=== PATIENT | male | born 1975 | race Caucasian/White ===

== ENCOUNTER 2017-11-04 10:26 | Inpatient (IN) | payer OTHER ==
[2017-11-04 10:42] VITALS: BMI 24.3
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
[2017-11-04] MEDS ORDERED: MAGNESIUM CITRATE 300 ML BOTTLE PO PRN (13:07)
[2017-11-04] MEDS ORDERED: LOPERAMIDE HCL 2 MG CAPSULE PO PRN (13:07)
[2017-11-04] MEDS ORDERED: NICOTINE POLACRILEX 2 MG GUM BC PRN (13:07)
[2017-11-04] MEDS ORDERED: MAG HYDROX/AL HYDROX/SIMETH 30 ML UNIT-DOSE CUP PO PRN (13:07)
[2017-11-04] MEDS ORDERED: MAGNESIUM HYDROX 2400MG/30ML ORAL SUSPENSION 30 ML CUP PO PRN (13:07)
[2017-11-04] MEDS ORDERED: P-EPHED 60MG/TRIPROLIDI 2.5MG TABLET PO PRN (13:07)
[2017-11-04] MEDS ORDERED: ACETAMINOPHEN 325 MG TABLET (FP) PO PRN (13:07)
[2017-11-04] MEDS ORDERED: MENTHOL/PHENOL 1 EACH UD MM PRN (13:07)
[2017-11-04] MEDS ORDERED: guaiFENesin/D-METHORPHAN HB 10 ML UNIT-DOSE CUPS PO PRN (13:07)
[2017-11-04] MEDS ORDERED: ALBUTEROL SO4 8 GM HFA INHALER IH PRN (13:11)
[2017-11-04] MEDS ORDERED: ALBUTEROL SO4 2.5/IPRATROPIUM 0.5 INH SOL 3 ML VIAL.NEB. NEB PRN (13:11)
[2017-11-04] MEDS ORDERED: diazePAM 5 MG TABLET PO ONE (14:00)
[2017-11-04] MEDS ORDERED: METHADONE HCL 10 MG TABLET (FOR DETOX USE ONLY) PO ONE ×2 (14:00→23:00)
[2017-11-04] MEDS: NICOTINE 14 MG/24 HOURS TOPICAL PATCH TD SCH (14:19)
[2017-11-04] MEDS: diazePAM 5 MG TABLET PO SCH ×2 (14:21→22:30)
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
[2017-11-04] MEDS ORDERED: MELATONIN 5 MG TABLETS PO PRN (22:00)
[2017-11-04] MEDS: THIAMINE HCL 100 MG TABLET (FP) PO SCH (22:30)
[2017-11-04] MEDS: BUDESONIDE/FORMETEROL FUMARATE 160/4.5 mcg INHALER IH SCH (22:30)
[2017-11-04] MEDS: ZOLPIDEM TARTRATE 10 MG TABLET (PARK CARE ONLY) PO PRN (22:32)
[2017-11-05] MEDS: diazePAM 5 MG TABLET PO SCH ×3 (05:33→22:11)
[2017-11-05] MEDS: PRENATAL VITAMINS W/ FOLIC ACID TABLET (FP) PO SCH (09:33)
[2017-11-05] MEDS: diazePAM 5 MG TABLET PO PRN ×2 (09:33→17:02)
[2017-11-05] MEDS: BUDESONIDE/FORMETEROL FUMARATE 160/4.5 mcg INHALER IH SCH ×2 (09:33→22:12)
[2017-11-05] MEDS: NICOTINE 14 MG/24 HOURS TOPICAL PATCH TD SCH (09:34)
--- NOTE | 2017-11-05 09:43 | EKG ---
Test Reason : Blood Pressure : / mmHG Vent. Rate : 078 BPM Atrial Rate : 078 BPM P-R Int : 152 ms QRS Dur : 098 ms QT Int : 426 ms P-R-T Axes : 030 -18 008 degrees QTc Int : 485 ms NORMAL SINUS RHYTHM POSSIBLE LEFT ATRIAL ENLARGEMENT LEFT VENTRICULAR HYPERTROPHY PROLONGED QT ABNORMAL ECG NO PREVIOUS ECGS AVAILABLE Confirmed by HERON ROMANO MD ([id number]) on 11/05/2017 9:42:31 AM Referred By: Confirmed By:HERON ROMANO MD
[2017-11-05] MEDS ORDERED: METHADONE HCL 10 MG TABLET (FOR DETOX USE ONLY) PO SCH (10:00)
[2017-11-05 10:52] LABS: HEMATOCRIT 45.4 % (35.4-49); HEMOGLOBIN 14.7 GM/dL (11.7-16.9); MCH 27.5 pg (25.7-33.7); MCHC 32.4 g/dl (32.0-35.9); MEAN PLT VOLUME 9.9 fl (7.5-11.1); PLATELET COUNT 389 K/MM3 (134-434); RBC 5.34 M/mm3 (4.00-5.60); WHITE BLOOD COUNT 9.4 K/mm3 (4.0-10.0)
[2017-11-05 11:20] LABS: CHLORIDE 103 mmol/L (98-107); POTASSIUM 4.5 mmol/L (3.5-5.1); SODIUM 141 mmol/L (136-145)
[2017-11-05 11:37] LABS: ALBUMIN 3.5 g/dl (3.4-5.0); ALK PHOS 79 U/L (45-117); ANION GAP 10 (8-16); BILIRUBIN,TOTAL 0.6 mg/dL (0.2-1.0); BLOOD UREA NITROGEN 16 mg/dL (7-18); CALCIUM 9.3 mg/dL (8.5-10.1); CO2 28 mmol/L (21-32); CREATININE 1.1 mg/dL (0.7-1.3); GLUCOSE,RANDOM 101 mg/dL (74-106); SGOT/AST 18 U/L (15-37); SGPT/ALT 20 U/L (12-78); TOT PROT 7.6 g/dl (6.4-8.2)
--- NOTE | 2017-11-05 14:24 | PN ---
S CIWA - CIWA Score Nausea/Vomitin-No Nausea/No Vomiting Muscle Tremors: 3 Anxiety: 4-Mod. Anxious/Guarded Agitation: 0-Normal Activity Paroxysmal Sweats: 3 Orientation: 2-Disoriented Date<2 days Tacttile Disturbances: 2-Mild Itch/Numbness/Burn Auditory Disturbances: 0-None Visual Disturbances: 3-Moderate Sensitivity Headache: 0-None Present CIWA-Ar Total Score: 17 BHS COWS - Scale Resting Pulse: 1= [place] 81-100 Sweatin= Chills/Flushing Restless Observation: 0= Sits Still Pupil Size: 0= Normal to Room Light Bone or Joint Aches: 2= Severe Diffuse Aches Runny Nose/ Eye Tearin= Nasal Congestion GI Upset > 30mins: 2= Nausea/Diarrhea Tremor Observation of Outstretched Hands: 2= Slight Tremor Visible Yawning Observation: 2= >3x During Session Anxiety or Irritability: 2=Irritable/Anxious Goose Flesh Skin: 3=Piloerection COWS Score: 16 BHS Progress Note (SOAP) Subjective: Anxious, Sweating, Tremors, Diarrhea, Body Aches. Objective: PATIENT A & O X 2 (UNCERTAIN ABOUT CURRENT DAY / DATE). PATIENT OBSERVED AMBULATING ON UNIT. NO ACUTE DISTRESS. PATIENT DENIES CHEST PAIN. 11/05/17 14:22 Vital Signs Temperature 97.6 F 11/05/17 13:15 Pulse Rate 99 H 11/05/17 13:15 Respiratory Rate 18 11/05/17 13:15 Blood Pressure 98/68 11/05/17 13:15 O2 Sat by Pulse Oximetry (%) Laboratory Tests 11/05/17 11/05/17 06:15 06:15 WBC 9.4 RBC 5.34 Hgb 14.7 Hct 45.4 MCV 85.0 MCH 27.5 MCHC 32.4 RDW 17.0 H Plt Count 389 D MPV 9.9 Sodium 141 Potassium 4.5 Chloride 103 Carbon Dioxide 28 Anion Gap 10 BUN 16 Creatinine 1.1 Creat Clearance w eGFR > 60 Random Glucose 101 Calcium 9.3 Total Bilirubin 0.6 AST 18 D ALT 20 D Alkaline Phosphatase 79 Total Protein 7.6 Albumin 3.5 LABS NOTED. RPR, UA RESULTS PENDING. 11/05/17 14:23 11/05/17 14:23 Assessment: 11/05/17 14:22 WITHDRAWAL SYMPTOMS. Plan: CONTINUE DETOX.
[2017-11-05] MEDS: IBUPROFEN 400 MG TABLET (FP) PO PRN (17:03)
[2017-11-05] MEDS: ZOLPIDEM TARTRATE 10 MG TABLET (PARK CARE ONLY) PO PRN (22:11)
[2017-11-05] MEDS: THIAMINE HCL 100 MG TABLET (FP) PO SCH (22:11)
[2017-11-06] MEDS: diazePAM 5 MG TABLET PO PRN ×2 (06:49→14:22)
[2017-11-06] MEDS: IBUPROFEN 400 MG TABLET (FP) PO PRN (06:53)
[2017-11-06] MEDS: NICOTINE 14 MG/24 HOURS TOPICAL PATCH TD SCH (09:30)
[2017-11-06] MEDS: PRENATAL VITAMINS W/ FOLIC ACID TABLET (FP) PO SCH (09:30)
[2017-11-06] MEDS ORDERED: diazePAM 5 MG TABLET PO SCH (10:00)
[2017-11-06] MEDS ORDERED: METHADONE HCL 5 MG TABLET (FOR DETOX USE ONLY) PO SCH (10:00)
[2017-11-06] MEDS: BUDESONIDE/FORMETEROL FUMARATE 160/4.5 mcg INHALER IH SCH (12:37)
[2017-11-06] MEDS ORDERED: LIDOCAINE 5% TOPICAL PATCH TP SCH (13:15)
[2017-11-06] MEDS ORDERED: CYCLOBENZAPRINE HCL 10 MG TABLET (FP) PO PRN (13:15)
--- NOTE | 2017-11-06 13:19 | PN ---
[facility] CIWA - CIWA Score Nausea/Vomitin-No Nausea/No Vomiting Muscle Tremors: None Anxiety: 5 Agitation: 2 Paroxysmal Sweats: 3 Orientation: 0-Oriented Tacttile Disturbances: 2-Mild Itch/Numbness/Burn Auditory Disturbances: 0-None Visual Disturbances: 2-Mild Sensitivity Headache: 0-None Present CIWA-Ar Total Score: 14 S COWS - Scale Resting Pulse: 1= [place] 81-100 Sweatin= Chills/Flushing Restless Observation: 0= Sits Still Pupil Size: 0= Normal to Room Light Bone or Joint Aches: 4=Acute Joint/Muscle Pain Runny Nose/ Eye Tearin= Nasal Congestion GI Upset > 30mins: 0= None Tremor Observation of Outstretched Hands: 0= None Yawning Observation: 2= >3x During Session Anxiety or Irritability: 2=Irritable/Anxious Goose Flesh Skin: 0=Smooth Skin COWS Score: 11 S Progress Note (SOAP) Subjective: Anxious, Sweating, Fatigue, Body Aches. Objective: PATIENT A & O X 3. NO ACUTE DISTRESS. 11/06/17 13:16 Vital Signs Temperature 97.9 F 11/06/17 11:05 Pulse Rate 86 11/06/17 11:05 Respiratory Rate 20 11/06/17 11:05 Blood Pressure 114/80 11/06/17 11:05 O2 Sat by Pulse Oximetry (%) Laboratory Tests 11/05/17 11/05/17 11/05/17 06:15 06:15 06:15 WBC 9.4 RBC 5.34 Hgb 14.7 Hct 45.4 MCV 85.0 MCH 27.5 MCHC 32.4 RDW 17.0 H Plt Count 389 D MPV 9.9 Sodium 141 Potassium 4.5 Chloride 103 Carbon Dioxide 28 Anion Gap 10 BUN 16 Creatinine 1.1 Creat Clearance w eGFR > 60 Random Glucose 101 Calcium 9.3 Total Bilirubin 0.6 AST 18 D ALT 20 D Alkaline Phosphatase 79 Total Protein 7.6 Albumin 3.5 RPR Titer Nonreactive LABS NOTED. UA RESULTS PENDING. 11/06/17 13:17 Assessment: 11/06/17 13:18 WITHDRAWAL SYMPTOMS. Plan: CONTINUE DETOX. LIDODERM PATCH, PRN FLEXERIL PO FOR BODY ACHES / MUSCLE SPASMS. INCREASE DAILY PO FLUID INTAKE. ENCOURAGE AMBULATION.
[2017-11-06 14:51] VITALS: BP 112/70; PULSE 100; TEMP 98.3
--- NOTE | 2017-11-06 18:25 | DS ---
[facility] Detox Discharge Summary Admission Date: 11/04/17 Discharge Date: 11/06/17 - History Present History: Cocaine Dependence, Opioid Dependence, Sedative Dependence, Pcp Dependence Additional Comments: PATIENT DOES NOT WISH TO STAY TO COMPLETE DETOX REGIMEN. RISKS OF LEAVING DETOX UNIT AGAINST MEDICAL ADVICE AND PRIOR TO COMPLETION OF DETOX REGIMEN EXPLAINED TO PATIENT. PATIENT ADVISED TO GO IMMEDIATELY TO NEAREST ER SHOULD ANY INTOLERABLE DETOX SYMPTOMS DEVELOP AT ANY TIME. PATIENT LEFT DETOX UNIT IN STABLE MEDICAL CONDITION. Pertinent Past History: Asthma, C.O.P.D., Depression, History of CHF. - Physical Exam Results Vital Signs: Vital Signs Temperature 98.3 F 11/06/17 14:50 Pulse Rate 100 H 11/06/17 14:50 Respiratory Rate 18 11/06/17 14:50 Blood Pressure 112/70 11/06/17 14:50 O2 Sat by Pulse Oximetry (%) Pertinent Admission Physical Exam Findings: WITHDRAWAL SYMPTOMS. Laboratory Tests 11/05/17 11/05/17 11/05/17 06:15 06:15 06:15 WBC 9.4 RBC 5.34 Hgb 14.7 Hct 45.4 MCV 85.0 MCH 27.5 MCHC 32.4 RDW 17.0 H Plt Count 389 D MPV 9.9 Sodium 141 Potassium 4.5 Chloride 103 Carbon Dioxide 28 Anion Gap 10 BUN 16 Creatinine 1.1 Creat Clearance w eGFR > 60 Random Glucose 101 Calcium 9.3 Total Bilirubin 0.6 AST 18 D ALT 20 D Alkaline Phosphatase 79 Total Protein 7.6 Albumin 3.5 RPR Titer Nonreactive LABS NOTED. - Treatment Hospital Course: Detoxed Safely - Medication Discharge Medications: Ambulatory Orders Albuterol Sulfate Inhaler - [Ventolin Hfa Inhaler -] 2 inh PO Q4H PRN 11/04/17 Budesonide/Formeterol Fumarate [SYMBICORT 160/4.5mcg -] 1 inh PO BID 11/04/17 - Diagnosis (1) Cocaine dependence, uncomplicated Status: Acute (2) Opioid dependence with withdrawal Status: Acute (3) PCP dependence Status: Acute (4) Sedative, hypnotic or anxiolytic dependence with withdrawal, uncomplicated Status: Acute (5) Asthma Status: Chronic Qualifiers: Asthma severity: unspecified severity Asthma persistence: unspecified Asthma complication type: uncomplicated Qualified Code(s): J45.909 - Unspecified asthma, uncomplicated (6) COPD (chronic obstructive pulmonary disease) Status: Chronic Qualifiers: COPD type: unspecified COPD Qualified Code(s): J44.9 - Chronic obstructive pulmonary disease, unspecified (7) CHF (congestive heart failure) Status: Suspected Qualifiers: Heart failure type: unspecified Heart failure chronicity: unspecified Qualified Code(s): I50.9 - Heart failure, unspecified (8) Substance induced mood disorder Status: Acute (9) Substance-induced sleep disorder Status: Acute - AMA Did Patient Leave Against Medical Advice: Yes (PATIENT DID NOT WISH TO REMAIN TO COMPLETE DETOX REGIMEN.)
[2017-11-06] MEDS ORDERED: LIDOCAINE PATCH REMOVAL MC SCH (22:00)
--- NOTE | 2017-11-07 10:19 | EKG ---
Test Reason : Blood Pressure : / mmHG Vent. Rate : 093 BPM Atrial Rate : 093 BPM P-R Int : 150 ms QRS Dur : 098 ms QT Int : 398 ms P-R-T Axes : 051 -28 028 degrees QTc Int : 494 ms NORMAL SINUS RHYTHM POSSIBLE LEFT ATRIAL ENLARGEMENT LEFT VENTRICULAR HYPERTROPHY NONSPECIFIC T WAVE ABNORMALITY PROLONGED QT ABNORMAL ECG WHEN COMPARED WITH ECG OF 04-NOV-2017 13:27, NO SIGNIFICANT CHANGE WAS FOUND Confirmed by CHASE SOUTH, TAVON ([id number]) on 11/07/2017 10:18:42 AM Referred By: Confirmed By:TAVON STONE MD
[2017-11-08] MEDS ORDERED: diazePAM 5 MG TABLET PO SCH (10:00)
[2017-11-08] MEDS ORDERED: METHADONE HCL 10 MG TABLET (FOR DETOX USE ONLY) PO SCH (10:00)
[2017-11-09] MEDS ORDERED: METHADONE HCL 5 MG TABLET (FOR DETOX USE ONLY) PO SCH (06:00)
== END 2017-11-06 16:10 | disposition left against medical advice (07) | DRG 770 ==
LOC: YASAS 10:26 → Y3N 13:19
PROVIDERS: ADMIT Surgery; ATTEND Surgery
PROC: HZ2ZZZZ Detoxification Services for Substance Abuse Treatment (ICD-10-PCS; principal; 2017-11-04)
DX: F11.23 Opioid dependence with withdrawal (principal); F13.230 Sedative, hypnotic or anxiolytic dependence with withdrawal, uncomplicated; F14.20 Cocaine dependence, uncomplicated; F16.20 Hallucinogen dependence, uncomplicated; F19.24 Other psychoactive substance dependence with psychoactive substance-induced mood disorder; F19.282 Other psychoactive substance dependence with psychoactive substance-induced sleep disorder; J45.909 Unspecified asthma, uncomplicated; J44.9 Chronic obstructive pulmonary disease, unspecified; I50.9 Heart failure, unspecified
CPT/HCPCS: 36415; 80053; 85027; 86593; 93005; 93010

== ENCOUNTER 2018-01-28 09:15 | Inpatient (IN) | payer OTHER ==
[2018-01-28 09:44] VITALS: BMI 24.7
--- NOTE | 2018-01-28 10:21 | HP ---
COWS - Scale Resting Pulse: 1= [place] 81-100 Sweatin= Chills/Flushing Restless Observation: 3= Extraneous Movement Pupil Size: 1= Pupils >than Normal Bone or Joint Aches: 2= Severe Diffuse Aches Runny Nose/ Eye Tearin= Nasal Congestion GI Upset > 30mins: 3= Vomiting/Diarrhea Tremor Observation: 2= Slight Tremor Visible Yawning Observation: 1= 1-2x During Session Anxiety or Irritability: 2=Irritable/Anxious Goose Flesh Skin: 0=Smooth Skin COWS Score: 17 CIWA Score - CIWA Score Nausea/Vomitin Muscle Tremors: 3 Anxiety: 2 Agitation: 2 Paroxysmal Sweats: 1-Minimal Palms Moist Orientation: 0-Oriented Tacttile Disturbances: 1-Very Mild Itch/Numbness Auditory Disturbances: 1-Very Mild Visual Disturbances: 0-None Headache: 2-Mild CIWA-Ar Total Score: 15 Admission ROS BHS - HPI Chief Complaint: i need help to heroin,cack Allergies/Adverse Reactions: Allergies Allergy/AdvReac Type Severity Reaction Status Date / Time No Known Allergies Allergy Verified 01/28/18 09:49 History of Present Illness: this 42 years old male with heroin and cocaine dependence,seeking detox, withdrawal symptom,last detox [facility] 11/04/17 to 11/06/17 not completed multiple admissions if detox anxiety,depression,insomnia nicotine dependence weight loss longest period of sobriety 2 months plan for rehab after detox Exam Limitations: No Limitations - Ebola screening Have you traveled outside of the country in the last 21 days: No (N) Have you had contact with anyone from an Ebola affected area: No Have you been sick,other than usual withdrawal symptoms: No Do you have a fever: No - Review of Systems Constitutional: Chills, Loss of Appetite, Malaise, Night Sweats, Changes in sleep, Weakness, Unintentional Wgt. Loss EENT: reports: Tearing, Nose Congestion Respiratory: reports: No Symptoms reported Cardiac: reports: No Symptoms Reported GI: reports: Diarrhea, Nausea, Poor Fluid Intake, Vomiting Musculoskeletal: reports: Back Pain, Joint Pain, Muscle Pain Integumentary: reports: Dryness Neuro: reports: Headache, Tremors Endocrine: reports: No Symptoms Reported Hematology: reports: No Symptoms Reported Psychiatric: reports: No Sypmtoms Reported, Judgement Intact, Mood/Affect Appropiate, Agitated, Depressed Patient History - Patient Medical History Hx Anemia: No Hx Asthma: Yes (on albuterol inhehar and symbicort) Hx Chronic Obstructive Pulmonary Disease (COPD): No Hx Cancer: No Hx Cardiac Disorders: No Hx Congestive Heart Failure: No Hx Hypertension: No Hx Hypercholesterolemia: No Hx Pacemaker: No HX Cerebrovascular Accident: No Hx Seizures: No Hx Diabetes: No Hx Gastrointestinal Disorders: No Hx Liver Disease: No Hx Genitourinary Disorders: No Hx Sexually Transmitted Disorders: No Hx Renal Disease (ESRD): No Hx Thyroid Disease: No Hx Human Immunodeficiency Virus (HIV): No (last 2018 negative) Hx Hepatitis C: No Hx Depression: Yes Hx Suicide Attempt: No Hx Bipolar Disorder: No Hx Schizophrenia: No Other Medical History: no suicidal,no homicidal - Patient Surgical History Past Surgical History: No Hx Neurologic Surgery: No Hx Cataract Extraction: No Hx Cardiac Surgery: No Hx Lung Surgery: No Hx Breast Surgery: No Hx Breast Biopsy: No Hx Abdominal Surgery: No Hx Appendectomy: No Hx Cholecystectomy: No Hx Genitourinary Surgery: No Hx Section: No Hx Orthopedic Surgery: No Anesthesia Reaction: No - PPD History Previous Implant?: Yes Documented Results: Negative w/proof Implanted On Prior [facility] Admission?: Yes Date: 07/21/15 Results: 0 mm PPD to be Administered?: Yes - Smoking Cessation Smoking history: Current every day smoker Have you smoked in the past 12 months: Yes Aproximately how many cigarettes per day: 4 Hx Chewing Tobacco Use: No Initiated information on smoking cessation: Yes 'Breaking Loose' booklet given: 01/28/18 - Substance & Tx. History Hx Alcohol Use: Yes Substance Use Type: Cocaine, Heroin Hx Substance Use Treatment: Yes ([facility] 11/04/17 to 11/06/17) - Substances Abused Heroin Route: Inhalation Frequency: Daily Amount used: 5-6 bags Age of first use: 39 Date of Last Use: 01/27/18 Crack Route: Smoking Frequency: Daily Amount used: $100 Age of first use: 42 Date of Last Use: 01/27/18 Family Disease History - Family Disease History Family Disease History: Diabetes: Father (HTN), Heart Disease: Father, Mother ( HTN) Admission Physical Exam BHS - Vital Signs Vital Signs: Vital Signs - 24 hr 01/28/18 09:43 Temperature 97 F L Pulse Rate 94 H Respiratory 18 Rate Blood Pressure 142/99 - Physical General Appearance: Yes: Moderate Distress, Tremorous, Irritable, Sweating, Anxious HEENTM: Yes: Normal ENT Inspection, RAÚL, Pharynx Normal Respiratory: Yes: Lungs Clear, Normal Breath Sounds, No Respiratory Distress Neck: Yes: Within Normal Limits, Supple, Trachea in good position Breast: Yes: Within Normal Limits Cardiology: Yes: Within Normal Limits, Regular Rate, S1, S2 Abdominal: Yes: Within Normal Limits, Normal Bowel Sounds, Non Tender, Flat, Soft Genitourinary: Yes: Within Normal Limits Back: Yes: Normal Inspection, Muscle Spasm Musculoskeletal: Yes: Back pain, Joint Stiffness, Muscle Pain Extremities: Yes: Within Normal Limits, Normal Range of Motion, Tremors, Other ( blsters both feet) Neurological: Yes: ct scan technologist II-XII NML intact, Alert, Motor Strength 5/5 Integumentary: Yes: Dry Lymphatic: Yes: Within Normal Limits - Diagnostic (1) Opioid dependence with withdrawal Current Visit: No Status: Acute (2) Cocaine dependence, uncomplicated Current Visit: No Status: Acute (3) Asthma Current Visit: No Status: Chronic Qualifiers: Asthma severity: unspecified severity Asthma persistence: intermittent Asthma complication type: uncomplicated Qualified Code(s): J45.20 - Mild intermittent asthma, uncomplicated (4) Insomnia secondary to depression with anxiety Current Visit: Yes Status: Acute (5) Weight loss Current Visit: Yes Status: Acute Cleared for Admission [facility] - Detox or Rehab [facility] Level of Care: Medically Managed Detox Regimen/Protocol: Methadone [facility] Breath Alcohol Content Breath Alcohol Content: 0 Urine Drug Screen - Results Drug Screen Negative: No Urine Drug Screen Results: ROLA-Cocaine, OPI-Opiates
[2018-01-28] MEDS ORDERED: ALBUTEROL SO4 2.5/IPRATROPIUM 0.5 INH SOL 3 ML VIAL.NEB. NEB PRN (11:13)
[2018-01-28] MEDS ORDERED: ACETAMINOPHEN 325 MG TABLET (FP) PO PRN (13:15)
[2018-01-28] MEDS ORDERED: MENTHOL/PHENOL 1 EACH UD MM PRN (13:15)
[2018-01-28] MEDS ORDERED: MAG HYDROX/AL HYDROX/SIMETH 30 ML UNIT-DOSE CUP PO PRN (13:15)
[2018-01-28] MEDS ORDERED: LOPERAMIDE HCL 2 MG CAPSULE PO PRN (13:15)
[2018-01-28] MEDS ORDERED: MAGNESIUM HYDROX 2400MG/30ML ORAL SUSPENSION 30 ML CUP PO PRN (13:15)
[2018-01-28] MEDS ORDERED: NICOTINE POLACRILEX 2 MG GUM BUC PRN (13:15)
[2018-01-28] MEDS ORDERED: guaiFENesin/D-METHORPHAN HB 10 ML UNIT-DOSE CUPS PO PRN (13:15)
[2018-01-28] MEDS ORDERED: P-EPHED 60MG/TRIPROLIDI 2.5MG TABLET PO PRN (13:15)
[2018-01-28] MEDS ORDERED: MAGNESIUM CITRATE 300 ML BOTTLE PO PRN (13:15)
[2018-01-28] MEDS ORDERED: METHADONE HCL 10 MG TABLET (FOR DETOX USE ONLY) PO ONE ×2 (13:35→23:00)
[2018-01-28] MEDS ORDERED: cloNIDine HCL 0.1 MG TABLET PO ONE (13:35)
[2018-01-28] MEDS: CYCLOBENZAPRINE HCL 10 MG TABLET (FP) PO PRN (14:15)
[2018-01-28] MEDS: diazePAM 5 MG TABLET PO PRN ×2 (14:16→18:58)
[2018-01-28] MEDS: NICOTINE 21 MG/24 HOURS TOPICAL PATCH TD SCH (14:16)
[2018-01-28 14:48] LABS: URINE APPEARANCE SLCLOUDY; URINE BILIRUBIN NEGATIVE (<2.0 mg/dL); URINE COLOR YELLOW; URINE GLUCOSE (UA) NEGATIVE (NEGATIVE); URINE KETONE NEGATIVE (NEGATIVE); URINE LEUK ESTERASE NEGATIVE (NEGATIVE); URINE NITRITE NEGATIVE (NEGATIVE); URINE PROTEIN NEGATIVE (NEGATIVE)
[2018-01-28] MEDS ORDERED: MELATONIN 5 MG TABLETS PO PRN (22:00)
[2018-01-28] MEDS: THIAMINE HCL 100 MG TABLET (FP) PO SCH (22:41)
[2018-01-28] MEDS: BUDESONIDE/FORMETEROL FUMARATE 160/4.5 mcg INHALER IH SCH (22:43)
[2018-01-28] MEDS: cloNIDine HCL 0.1 MG TABLET PO SCH (22:44)
[2018-01-29] MEDS ORDERED: METHADONE HCL 10 MG TABLET (FOR DETOX USE ONLY) PO ONE (10:00)
[2018-01-29] MEDS: cloNIDine HCL 0.1 MG TABLET PO SCH ×2 (10:44→22:17)
[2018-01-29] MEDS: BUDESONIDE/FORMETEROL FUMARATE 160/4.5 mcg INHALER IH SCH ×2 (10:45→22:19)
[2018-01-29] MEDS: diazePAM 5 MG TABLET PO PRN ×2 (10:45→17:17)
[2018-01-29] MEDS: CYCLOBENZAPRINE HCL 10 MG TABLET (FP) PO PRN (10:45)
[2018-01-29] MEDS: PRENATAL VITAMINS W/ FOLIC ACID TABLET (FP) PO SCH (10:45)
[2018-01-29] MEDS: NICOTINE 21 MG/24 HOURS TOPICAL PATCH TD SCH (10:45)
[2018-01-29 11:26] LABS: HEMATOCRIT 44.7 % (35.4-49); HEMOGLOBIN 14.1 GM/dL (11.7-16.9); MCH 25.6 pg (25.7-33.7); MCHC 31.5 g/dl (32.0-35.9); MEAN CELL VOLUME 81.3 fl (80-96); MEAN PLT VOLUME 10.1 fl (7.5-11.1); PLATELET COUNT 343 K/MM3 (134-434); RBC 5.51 M/mm3 (4.00-5.60); RDW 17.5 % (11.9-15.9)
[2018-01-29 11:37] LABS: ALBUMIN 3.5 g/dl (3.4-5.0); ALK PHOS 80 U/L (45-117); ANION GAP 11 MMOL/L (8-16); BILIRUBIN,TOTAL 0.3 mg/dL (0.2-1); BLOOD UREA NITROGEN 10 mg/dL (7-18); CALCIUM 9.9 mg/dL (8.5-10.1); CHLORIDE 106 mmol/L (98-107); CO2 27 mmol/L (21-32); GLUCOSE,RANDOM 77 mg/dL (74-106); POTASSIUM 4.4 mmol/L (3.5-5.1); SGOT/AST 22 U/L (15-37); SGPT/ALT 28 U/L (13-61); SODIUM 144 mmol/L (136-145); TOT PROT 7.1 g/dl (6.4-8.2)
--- NOTE | 2018-01-29 13:53 | PN ---
[facility] CIWA - CIWA Score Nausea/Vomitin-No Nausea/No Vomiting Muscle Tremors: 2 Anxiety: 3 Agitation: 3 Paroxysmal Sweats: 2 Orientation: 0-Oriented Tacttile Disturbances: 1-Very Mild Itch/Numbness Auditory Disturbances: 0-None Visual Disturbances: 1-Very Mild Sensitivity Headache: 0-None Present CIWA-Ar Total Score: 12 BHS COWS - Scale Resting Pulse: 1= SC 81-100 Sweatin=Flushed/Facial Moisture Restless Observation: 1= Difficult to Sit Still Pupil Size: 0= Normal to Room Light Bone or Joint Aches: 1= Mild Discomfort Runny Nose/ Eye Tearin= Nasal Congestion GI Upset > 30mins: 1= Stomach Cramp Tremor Observation of Outstretched Hands: 1= Tremor [place], Not Seen Yawning Observation: 2= >3x During Session Anxiety or Irritability: 2=Irritable/Anxious Goose Flesh Skin: 0=Smooth Skin COWS Score: 12 S Progress Note (SOAP) Subjective: back pain , chills, sweats, interrupted sleep Objective: 01/29/18 13:52 Vital Signs Temperature 98.1 F 01/29/18 13:28 Pulse Rate 91 H 01/29/18 13:28 Respiratory Rate 18 01/29/18 13:28 Blood Pressure 130/72 01/29/18 13:28 O2 Sat by Pulse Oximetry (%) Laboratory Last Values WBC 8.0 K/mm3 (4.0-10.0) 01/29/18 06:00 RBC 5.51 M/mm3 (4.00-5.60) 01/29/18 06:00 Hgb 14.1 GM/dL (11.7-16.9) 01/29/18 06:00 Hct 44.7 % (35.4-49) 01/29/18 06:00 MCV 81.3 fl (80-96) 01/29/18 06:00 MCH 25.6 pg (25.7-33.7) L 01/29/18 06:00 MCHC 31.5 g/dl (32.0-35.9) L 01/29/18 06:00 RDW 17.5 % (11.9-15.9) H 01/29/18 06:00 Plt Count 343 K/MM3 (134-434) 01/29/18 06:00 MPV 10.1 fl (7.5-11.1) 01/29/18 06:00 Sodium 144 mmol/L (136-145) 01/29/18 06:00 Potassium 4.4 mmol/L (3.5-5.1) 01/29/18 06:00 Chloride 106 mmol/L (98-107) 01/29/18 06:00 Carbon Dioxide 27 mmol/L (21-32) 01/29/18 06:00 Anion Gap 11 MMOL/L (8-16) 01/29/18 06:00 BUN 10 mg/dL (7-18) 01/29/18 06:00 Creatinine 1.0 mg/dL (0.55-1.3) 01/29/18 06:00 Creat Clearance w eGFR > 60 (>60) 01/29/18 06:00 Random Glucose 77 mg/dL (74-106) 01/29/18 06:00 Calcium 9.9 mg/dL (8.5-10.1) 01/29/18 06:00 Total Bilirubin 0.3 mg/dL (0.2-1) 01/29/18 06:00 AST 22 U/L (15-37) 01/29/18 06:00 ALT 28 U/L (13-61) 01/29/18 06:00 Alkaline Phosphatase 80 U/L (45-117) 01/29/18 06:00 Total Protein 7.1 g/dl (6.4-8.2) 01/29/18 06:00 Albumin 3.5 g/dl (3.4-5.0) 01/29/18 06:00 Urine Color Yellow 01/28/18 12:15 Urine Appearance Slcloudy 01/28/18 12:15 Urine pH 6.0 (5.0-8.0) 01/28/18 12:15 Ur Specific [place] 1.023 (1.001-1.035) 01/28/18 12:15 Urine Protein Negative (NEGATIVE) 01/28/18 12:15 Urine Glucose (UA) Negative (NEGATIVE) 01/28/18 12:15 Urine Ketones Negative (NEGATIVE) 01/28/18 12:15 Urine Blood Negative (NEGATIVE) 01/28/18 12:15 Urine Nitrite Negative (NEGATIVE) 01/28/18 12:15 Urine Bilirubin Negative (<2.0 mg/dL) 01/28/18 12:15 Urine Urobilinogen 2.0 mg/dL (0.2-1.0) 01/28/18 12:15 Ur Leukocyte Esterase Negative (NEGATIVE) 01/28/18 12:15 RPR Titer Nonreactive (NONREACTIVE) 01/29/18 06:00 labs noted Aox3 no distress no adventitious breath sounds full ROM ambulating in the unit Assessment: 01/29/18 13:52 withdrawal sx Plan: increase fluids continue detox continue to monitor
--- NOTE | 2018-01-29 17:31 | CONSULT ---
[facility] Psychiatric Consult - Data Date of interview: 01/29/18 Admission source: [facility] Identifying data: Readmission to [facility] for this 42 y/o male self- referred for detoxification treatment (heroin,cocaine).Admitted to [address] [place] [address]. Patient is ,a father of two,homeless,unemployed and deprived of income. Substance Abuse History: Confirmed by the patient.Details in current [facility] report : Smoking history: Current every day smoker. Have you smoked in the past 12 months: Yes. Aproximately how many cigarettes per day: 4. Hx Chewing Tobacco Use: No. Initiated information on smoking cessation: Yes. 'Breaking Loose' booklet given: 01/28/18. - Substance & Tx. History. Hx Alcohol Use: Yes. Substance Use Type: Cocaine, Heroin. Hx Substance Use Treatment: Yes ([facility] 09/17 to 11/06/17). - Substances Abused. Heroin. Route: Inhalation. Frequency: Daily. Amount used: 5-6 bags. Age of first use: 39. Date of Last Use: 01/27/18. Crack. Route: Smoking. Frequency: Daily. Amount used: $ 100. Age of first use: 42. Date of Last Use: 01/27/18 Medical History: According to records : history of CHF,COPD. Patient reports chronic lumbar pain and bronchial asthma. Psychiatric History: Patient declares the diagnosis of ADHD co-morbid with MDD and Anxitey Disorder. Used to be on Adderall (unable to verify).Mr Reeves is NOT in treatment : no connection with OPD programs , not on psychotropic medications.Denies history of suicide attempts. Physical/Sexual Abuse/Trauma History: Patient denies. Additional Comment: Urine Drug Screen Results: ROLA-Cocaine, OPI-Opiates.Noted. Mental Status Exam - Mental Status Exam Alert and Oriented to: Time, Place, Person Cognitive Function: Good Patient Appearance: Well Groomed (tattoos on both arms) Mood: Nervous, Withdrawn Affect: Normal Range Patient Behavior: Fatigued, Talkative, Appropriate Speech Pattern: Clear, Appropriate Voice Loudness: Normal Thought Process: Intact, Goal Oriented Thought Disorder: Not Present Hallucinations: Denies Suicidal Ideation: Denies Homicidal Ideation: Denies Insight/Judgement: Poor Sleep: Poorly, Difficulty falling asleep Appetite: Good Muscle strength/Tone: Normal Gait/Station: Normal Psychiatric Findings - Problem List (Etters 1, 2,3) (1) Opioid dependence with withdrawal Current Visit: Yes Status: Acute (2) Cocaine dependence, uncomplicated Current Visit: Yes Status: Acute (3) Substance induced mood disorder Current Visit: No Status: Acute (4) Insomnia Current Visit: Yes Status: Acute - Initial Treatment Plan Initial Treatment Plan: Psychoeducation.Sleep hygiene.Detoxification in progress.Seroquel 100 mg po hs (patient's specific request). Side effects/ benefits discussed.Mr Reeves agrees to this careplan.Observation.
[2018-01-29] MEDS: IBUPROFEN 400 MG TABLET (FP) PO PRN (18:53)
[2018-01-29] MEDS: THIAMINE HCL 100 MG TABLET (FP) PO SCH (22:17)
[2018-01-29] MEDS: QUEtiapine FUMARATE 100 MG TABLET (FP) PO SCH (22:17)
[2018-01-30] MEDS: diazePAM 5 MG TABLET PO PRN ×3 (05:45→22:11)
[2018-01-30] MEDS ORDERED: METHADONE HCL 5 MG TABLET (FOR DETOX USE ONLY) PO ONE (10:00)
[2018-01-30] MEDS: BUDESONIDE/FORMETEROL FUMARATE 160/4.5 mcg INHALER IH SCH ×2 (10:50→22:11)
[2018-01-30] MEDS: PRENATAL VITAMINS W/ FOLIC ACID TABLET (FP) PO SCH (10:50)
[2018-01-30] MEDS: cloNIDine HCL 0.1 MG TABLET PO SCH ×2 (10:50→22:11)
[2018-01-30] MEDS: NICOTINE 21 MG/24 HOURS TOPICAL PATCH TD SCH (10:51)
--- NOTE | 2018-01-30 16:53 | PN ---
BHS COWS - Scale Resting Pulse: 1= SD 81-100 Sweatin= Chills/Flushing Restless Observation: 1= Difficult to Sit Still Pupil Size: 1= Pupils >than Normal Bone or Joint Aches: 1= Mild Discomfort Runny Nose/ Eye Tearin= Nasal Congestion GI Upset > 30mins: 2= Nausea/Diarrhea Tremor Observation of Outstretched Hands: 1= Tremor [place], Not Seen Yawning Observation: 1= 1-2x During Session Anxiety or Irritability: 1=Feels Anxious/Irritable Goose Flesh Skin: 0=Smooth Skin COWS Score: 11 S Progress Note (SOAP) Subjective: body ache joints pain tremor sweat trouble sleep at night Objective: 01/30/18 16:54 Vital Signs Temperature 97.7 F 01/30/18 14:06 Pulse Rate 95 H 01/30/18 14:06 Respiratory Rate 16 01/30/18 14:06 Blood Pressure 120/69 01/30/18 14:06 O2 Sat by Pulse Oximetry (%) Laboratory Last Values WBC 8.0 K/mm3 (4.0-10.0) 01/29/18 06:00 RBC 5.51 M/mm3 (4.00-5.60) 01/29/18 06:00 Hgb 14.1 GM/dL (11.7-16.9) 01/29/18 06:00 Hct 44.7 % (35.4-49) 01/29/18 06:00 MCV 81.3 fl (80-96) 01/29/18 06:00 MCH 25.6 pg (25.7-33.7) L 01/29/18 06:00 MCHC 31.5 g/dl (32.0-35.9) L 01/29/18 06:00 RDW 17.5 % (11.9-15.9) H 01/29/18 06:00 Plt Count 343 K/MM3 (134-434) 01/29/18 06:00 MPV 10.1 fl (7.5-11.1) 01/29/18 06:00 Sodium 144 mmol/L (136-145) 01/29/18 06:00 Potassium 4.4 mmol/L (3.5-5.1) 01/29/18 06:00 Chloride 106 mmol/L (98-107) 01/29/18 06:00 Carbon Dioxide 27 mmol/L (21-32) 01/29/18 06:00 Anion Gap 11 MMOL/L (8-16) 01/29/18 06:00 BUN 10 mg/dL (7-18) 01/29/18 06:00 Creatinine 1.0 mg/dL (0.55-1.3) 01/29/18 06:00 Creat Clearance w eGFR > 60 (>60) 01/29/18 06:00 Random Glucose 77 mg/dL (74-106) 01/29/18 06:00 Calcium 9.9 mg/dL (8.5-10.1) 01/29/18 06:00 Total Bilirubin 0.3 mg/dL (0.2-1) 01/29/18 06:00 AST 22 U/L (15-37) 01/29/18 06:00 ALT 28 U/L (13-61) 01/29/18 06:00 Alkaline Phosphatase 80 U/L (45-117) 01/29/18 06:00 Total Protein 7.1 g/dl (6.4-8.2) 01/29/18 06:00 Albumin 3.5 g/dl (3.4-5.0) 01/29/18 06:00 Urine Color Yellow 01/28/18 12:15 Urine Appearance Slcloudy 01/28/18 12:15 Urine pH 6.0 (5.0-8.0) 01/28/18 12:15 Ur Specific [place] 1.023 (1.001-1.035) 01/28/18 12:15 Urine Protein Negative (NEGATIVE) 01/28/18 12:15 Urine Glucose (UA) Negative (NEGATIVE) 01/28/18 12:15 Urine Ketones Negative (NEGATIVE) 01/28/18 12:15 Urine Blood Negative (NEGATIVE) 01/28/18 12:15 Urine Nitrite Negative (NEGATIVE) 01/28/18 12:15 Urine Bilirubin Negative (<2.0 mg/dL) 01/28/18 12:15 Urine Urobilinogen 2.0 mg/dL (0.2-1.0) 01/28/18 12:15 Ur Leukocyte Esterase Negative (NEGATIVE) 01/28/18 12:15 RPR Titer Nonreactive (NONREACTIVE) 01/29/18 06:00 lab noted Assessment: 01/30/18 16:54 sil junior Plan: continue detox
[2018-01-30] MEDS: QUEtiapine FUMARATE 100 MG TABLET (FP) PO SCH (22:11)
[2018-01-30] MEDS: THIAMINE HCL 100 MG TABLET (FP) PO SCH (22:11)
[2018-01-31] MEDS ORDERED: METHADONE HCL 5 MG TABLET (FOR DETOX USE ONLY) PO ONE (10:00)
[2018-01-31] MEDS: BUDESONIDE/FORMETEROL FUMARATE 160/4.5 mcg INHALER IH SCH ×2 (10:24→22:15)
[2018-01-31] MEDS: CYCLOBENZAPRINE HCL 10 MG TABLET (FP) PO PRN (10:24)
[2018-01-31] MEDS: diazePAM 5 MG TABLET PO PRN (10:25)
[2018-01-31] MEDS: PRENATAL VITAMINS W/ FOLIC ACID TABLET (FP) PO SCH (10:25)
[2018-01-31] MEDS: cloNIDine HCL 0.1 MG TABLET PO SCH ×2 (10:26→22:12)
[2018-01-31] MEDS: NICOTINE 21 MG/24 HOURS TOPICAL PATCH TD SCH (10:26)
--- NOTE | 2018-01-31 10:56 | PN ---
BHS Progress Note (SOAP) Subjective: sweat chill hot and cold body aches, trouble sleep at night Objective: 01/31/18 10:54 Vital Signs Temperature 97.5 F L 01/31/18 09:18 Pulse Rate 101 H 01/31/18 09:18 Respiratory Rate 18 01/31/18 09:18 Blood Pressure 114/71 01/31/18 09:18 O2 Sat by Pulse Oximetry (%) Vital Signs Laboratory Last Values WBC 8.0 K/mm3 (4.0-10.0) 01/29/18 06:00 RBC 5.51 M/mm3 (4.00-5.60) 01/29/18 06:00 Hgb 14.1 GM/dL (11.7-16.9) 01/29/18 06:00 Hct 44.7 % (35.4-49) 01/29/18 06:00 MCV 81.3 fl (80-96) 01/29/18 06:00 MCH 25.6 pg (25.7-33.7) L 01/29/18 06:00 MCHC 31.5 g/dl (32.0-35.9) L 01/29/18 06:00 RDW 17.5 % (11.9-15.9) H 01/29/18 06:00 Plt Count 343 K/MM3 (134-434) 01/29/18 06:00 MPV 10.1 fl (7.5-11.1) 01/29/18 06:00 Sodium 144 mmol/L (136-145) 01/29/18 06:00 Potassium 4.4 mmol/L (3.5-5.1) 01/29/18 06:00 Chloride 106 mmol/L (98-107) 01/29/18 06:00 Carbon Dioxide 27 mmol/L (21-32) 01/29/18 06:00 Anion Gap 11 MMOL/L (8-16) 01/29/18 06:00 BUN 10 mg/dL (7-18) 01/29/18 06:00 Creatinine 1.0 mg/dL (0.55-1.3) 01/29/18 06:00 Creat Clearance w eGFR > 60 (>60) 01/29/18 06:00 Random Glucose 77 mg/dL (74-106) 01/29/18 06:00 Calcium 9.9 mg/dL (8.5-10.1) 01/29/18 06:00 Total Bilirubin 0.3 mg/dL (0.2-1) 01/29/18 06:00 AST 22 U/L (15-37) 01/29/18 06:00 ALT 28 U/L (13-61) 01/29/18 06:00 Alkaline Phosphatase 80 U/L (45-117) 01/29/18 06:00 Total Protein 7.1 g/dl (6.4-8.2) 01/29/18 06:00 Albumin 3.5 g/dl (3.4-5.0) 01/29/18 06:00 Urine Color Yellow 01/28/18 12:15 Urine Appearance Slcloudy 01/28/18 12:15 Urine pH 6.0 (5.0-8.0) 01/28/18 12:15 Ur Specific [place] 1.023 (1.001-1.035) 01/28/18 12:15 Urine Protein Negative (NEGATIVE) 01/28/18 12:15 Urine Glucose (UA) Negative (NEGATIVE) 01/28/18 12:15 Urine Ketones Negative (NEGATIVE) 01/28/18 12:15 Urine Blood Negative (NEGATIVE) 01/28/18 12:15 Urine Nitrite Negative (NEGATIVE) 01/28/18 12:15 Urine Bilirubin Negative (<2.0 mg/dL) 01/28/18 12:15 Urine Urobilinogen 2.0 mg/dL (0.2-1.0) 01/28/18 12:15 Ur Leukocyte Esterase Negative (NEGATIVE) 01/28/18 12:15 RPR Titer Nonreactive (NONREACTIVE) 01/29/18 06:00 lab noted Assessment: 01/31/18 10:56 withdrawal sx Plan: continue detox
[2018-01-31] MEDS: THIAMINE HCL 100 MG TABLET (FP) PO SCH (22:12)
[2018-01-31] MEDS: QUEtiapine FUMARATE 100 MG TABLET (FP) PO SCH (22:13)
[2018-02-01] MEDS: hydrOXYzine PAMOATE 25 MG CAPSULE (FP) PO PRN ×2 (01:05→17:13)
[2018-02-01] MEDS: ALBUTEROL SO4 8 GM HFA INHALER IH PRN ×2 (01:05→06:24)
[2018-02-01] MEDS ORDERED: METHADONE HCL 10 MG TABLET (FOR DETOX USE ONLY) PO ONE (10:00)
[2018-02-01] MEDS: NICOTINE 21 MG/24 HOURS TOPICAL PATCH TD SCH (10:13)
[2018-02-01] MEDS: PRENATAL VITAMINS W/ FOLIC ACID TABLET (FP) PO SCH (10:14)
[2018-02-01] MEDS: cloNIDine HCL 0.1 MG TABLET PO SCH ×2 (10:14→22:19)
[2018-02-01] MEDS: BUDESONIDE/FORMETEROL FUMARATE 160/4.5 mcg INHALER IH SCH ×2 (10:15→22:19)
[2018-02-01] MEDS: IBUPROFEN 400 MG TABLET (FP) PO PRN (10:17)
--- NOTE | 2018-02-01 11:10 | EKG ---
Test Reason : Blood Pressure : / mmHG Vent. Rate : 097 BPM Atrial Rate : 097 BPM P-R Int : 160 ms QRS Dur : 102 ms QT Int : 396 ms P-R-T Axes : 061 -10 056 degrees QTc Int : 502 ms NORMAL SINUS RHYTHM POSSIBLE LEFT ATRIAL ENLARGEMENT NONSPECIFIC T WAVE ABNORMALITY PROLONGED QT ABNORMAL ECG WHEN COMPARED WITH ECG OF 05-NOV-2017 11:04, NO SIGNIFICANT CHANGE WAS FOUND Confirmed by Nura Moraes MD ([id number]) on 02/01/2018 11:09:50 AM Referred By: Confirmed By:Nura Moraes MD
--- NOTE | 2018-02-01 11:36 | PN ---
BHS Progress Note (SOAP) Subjective: irritable sweats Objective: 02/01/18 11:35 Vital Signs Temperature 97.5 F L 02/01/18 09:18 Pulse Rate 117 H 02/01/18 09:18 Respiratory Rate 18 02/01/18 09:18 Blood Pressure 136/88 02/01/18 09:18 O2 Sat by Pulse Oximetry (%) aaox3 ambulating no acute distress Assessment: 02/01/18 11:35 mild withdrawal sx Plan: continue detox increase fluids d/c in am
[2018-02-01] MEDS: THIAMINE HCL 100 MG TABLET (FP) PO SCH (22:19)
[2018-02-01] MEDS: QUEtiapine FUMARATE 100 MG TABLET (FP) PO SCH (22:19)
[2018-02-01] MEDS: CYCLOBENZAPRINE HCL 10 MG TABLET (FP) PO PRN (22:21)
[2018-02-02] MEDS ORDERED: METHADONE HCL 5 MG TABLET (FOR DETOX USE ONLY) PO ONE (06:00)
--- NOTE | 2018-02-02 08:33 | DS ---
[facility] Detox Discharge Summary Admission Date: 01/28/18 Discharge Date: 02/02/18 - History Present History: Opioid Dependence Additional Comments: 42 years old male admitted on 01/28/18 for opiate withdrawal sx completed opiate detox regimen tolerated well denies opiate withdrawal sx alert oriented x 3 no acute distress aftercare [facility] rehab - Physical Exam Results Vital Signs: Vital Signs Temperature 97.2 F L 02/02/18 06:00 Pulse Rate 95 H 02/02/18 06:00 Respiratory Rate 18 02/02/18 06:00 Blood Pressure 97/70 02/02/18 06:00 O2 Sat by Pulse Oximetry (%) Pertinent Admission Physical Exam Findings: opiate withdrawal sx Vital Signs Temperature 97.7 F 02/02/18 09:05 Pulse Rate 103 H 02/02/18 09:05 Respiratory Rate 16 02/02/18 09:05 Blood Pressure 120/82 02/02/18 09:05 O2 Sat by Pulse Oximetry (%) Laboratory Last Values WBC 8.0 K/mm3 (4.0-10.0) 01/29/18 06:00 RBC 5.51 M/mm3 (4.00-5.60) 01/29/18 06:00 Hgb 14.1 GM/dL (11.7-16.9) 01/29/18 06:00 Hct 44.7 % (35.4-49) 01/29/18 06:00 MCV 81.3 fl (80-96) 01/29/18 06:00 MCH 25.6 pg (25.7-33.7) L 01/29/18 06:00 MCHC 31.5 g/dl (32.0-35.9) L 01/29/18 06:00 RDW 17.5 % (11.9-15.9) H 01/29/18 06:00 Plt Count 343 K/MM3 (134-434) 01/29/18 06:00 MPV 10.1 fl (7.5-11.1) 01/29/18 06:00 Sodium 144 mmol/L (136-145) 01/29/18 06:00 Potassium 4.4 mmol/L (3.5-5.1) 01/29/18 06:00 Chloride 106 mmol/L (98-107) 01/29/18 06:00 Carbon Dioxide 27 mmol/L (21-32) 01/29/18 06:00 Anion Gap 11 MMOL/L (8-16) 01/29/18 06:00 BUN 10 mg/dL (7-18) 01/29/18 06:00 Creatinine 1.0 mg/dL (0.55-1.3) 01/29/18 06:00 Creat Clearance w eGFR > 60 (>60) 01/29/18 06:00 Random Glucose 77 mg/dL (74-106) 01/29/18 06:00 Calcium 9.9 mg/dL (8.5-10.1) 01/29/18 06:00 Total Bilirubin 0.3 mg/dL (0.2-1) 01/29/18 06:00 AST 22 U/L (15-37) 01/29/18 06:00 ALT 28 U/L (13-61) 01/29/18 06:00 Alkaline Phosphatase 80 U/L (45-117) 01/29/18 06:00 Total Protein 7.1 g/dl (6.4-8.2) 01/29/18 06:00 Albumin 3.5 g/dl (3.4-5.0) 01/29/18 06:00 Urine Color Yellow 01/28/18 12:15 Urine Appearance Slcloudy 01/28/18 12:15 Urine pH 6.0 (5.0-8.0) 01/28/18 12:15 Ur Specific [place] 1.023 (1.001-1.035) 01/28/18 12:15 Urine Protein Negative (NEGATIVE) 01/28/18 12:15 Urine Glucose (UA) Negative (NEGATIVE) 01/28/18 12:15 Urine Ketones Negative (NEGATIVE) 01/28/18 12:15 Urine Blood Negative (NEGATIVE) 01/28/18 12:15 Urine Nitrite Negative (NEGATIVE) 01/28/18 12:15 Urine Bilirubin Negative (<2.0 mg/dL) 01/28/18 12:15 Urine Urobilinogen 2.0 mg/dL (0.2-1.0) 01/28/18 12:15 Ur Leukocyte Esterase Negative (NEGATIVE) 01/28/18 12:15 RPR Titer Nonreactive (NONREACTIVE) 01/29/18 06:00 lab noted - Treatment Hospital Course: Detox Protocol Followed, Detoxed Safely, Responded well, Discharged Condition Good, Rehab Referral Accepted Patient [facility] - Medication Discharge Medications: Ambulatory Orders Albuterol 0.083% Nebulizer Betsy [Ventolin 0.083% Nebulizer Soln -] 1 neb NEB Q6H PRN 02/02/18 Albuterol Sulfate Inhaler - [Ventolin HFA Inhaler -] 2 inh PO Q4H PRN #1 inhaler 02/02/18 Budesonide/Formeterol Fumarate [SYMBICORT 160/4.5mcg -] 1 inh PO BID #1 inhaler 02/02/18 - Diagnosis (1) Opioid dependence with withdrawal Current Visit: Yes Status: Acute (2) Sedative, hypnotic or anxiolytic dependence with withdrawal, uncomplicated Current Visit: Yes Status: Acute (3) Substance induced mood disorder Current Visit: Yes Status: Suspected (4) Asthma Current Visit: Yes Status: Chronic Qualifiers: Asthma severity: unspecified severity Asthma persistence: intermittent Asthma complication type: uncomplicated Qualified Code(s): J45.20 - Mild intermittent asthma, uncomplicated (5) COPD (chronic obstructive pulmonary disease) Current Visit: Yes Status: Chronic Qualifiers: COPD type: unspecified COPD Qualified Code(s): J44.9 - Chronic obstructive pulmonary disease, unspecified (6) CHF (congestive heart failure) Current Visit: Yes Status: Chronic Qualifiers: Heart failure type: unspecified Heart failure chronicity: unspecified Qualified Code(s): I50.9 - Heart failure, unspecified - AMA Did Patient Leave Against Medical Advice: No
[2018-02-02 09:06] VITALS: PULSE 103
[2018-02-02] MEDS: PRENATAL VITAMINS W/ FOLIC ACID TABLET (FP) PO SCH (10:19)
[2018-02-02] MEDS: NICOTINE 21 MG/24 HOURS TOPICAL PATCH TD SCH (10:19)
[2018-02-02] MEDS: cloNIDine HCL 0.1 MG TABLET PO SCH (10:19)
[2018-02-02] MEDS: BUDESONIDE/FORMETEROL FUMARATE 160/4.5 mcg INHALER IH SCH (10:20)
[2018-02-02] MEDS: CYCLOBENZAPRINE HCL 10 MG TABLET (FP) PO PRN (10:22)
[2018-02-02] MEDS ORDERED: diazePAM 2 MG TABLET PO ONE (11:02)
[2018-02-02] MEDS ORDERED: diazePAM 5 MG TABLET PO ONE (11:50)
[2018-02-02 13:02] VITALS: BP 115/63; TEMP 96.4
== END 2018-02-02 12:47 | disposition other institution (70) | DRG 773 ==
LOC: YASAS 09:15 → Y6N 10:29
PROC: HZ2ZZZZ Detoxification Services for Substance Abuse Treatment (ICD-10-PCS; principal; 2018-01-28)
DX: F11.23 Opioid dependence with withdrawal (principal); F13.230 Sedative, hypnotic or anxiolytic dependence with withdrawal, uncomplicated; F14.20 Cocaine dependence, uncomplicated; F17.210 Nicotine dependence, cigarettes, uncomplicated; F19.24 Other psychoactive substance dependence with psychoactive substance-induced mood disorder; F51.05 Insomnia due to other mental disorder; J45.20 Mild intermittent asthma, uncomplicated; J44.9 Chronic obstructive pulmonary disease, unspecified; I50.9 Heart failure, unspecified; G47.00 Insomnia, unspecified; Z87.898 Personal history of other specified conditions
CPT/HCPCS: 36415; 80053; 81003; 85027; 86593; 93005; 93010; J0735

== ENCOUNTER 2018-02-02 13:01 | Inpatient (IN) | payer OTHER ==
--- NOTE | 2018-02-02 18:01 | HP ---
[facility] Rehab Assess/Revision - Admission History Admitted to Rehab from: [facility] [place] Date of Admission to Rehab: 02/02/18 - Vital signs Vital Signs: Vital Signs Period Temp Pulse Resp BP Sys/Dietz Pulse Ox Last 24 Hr 98.2 F 105 20 105/62 - Findings Detox History & Physical reviewed: Yes Concur with findings: No Inpatient Rehab Admission - Initial Determination Are CD services needed?: Yes Free of communicable disease: Yes Not in need of hospitalization: Yes - Rehab Admission Criteria Previous failed treatment: Yes Poor recovery environment: Yes Comorbidities: Yes Lacks judgement: Yes Patient is meeting Inpatient Rehab admission criteria:: Yes
[2018-02-02] MEDS ORDERED: MAGNESIUM CITRATE 300 ML BOTTLE PO PRN (18:02)
[2018-02-02] MEDS ORDERED: P-EPHED 60MG/TRIPROLIDI 2.5MG TABLET PO PRN (18:02)
[2018-02-02] MEDS ORDERED: ACETAMINOPHEN 325 MG TABLET (FP) PO PRN (18:02)
[2018-02-02] MEDS ORDERED: guaiFENesin/D-METHORPHAN HB 10 ML UNIT-DOSE CUPS PO PRN (18:02)
[2018-02-02] MEDS ORDERED: LOPERAMIDE HCL 2 MG CAPSULE PO PRN (18:02)
[2018-02-02] MEDS ORDERED: NICOTINE POLACRILEX 2 MG GUM BUC PRN (18:02)
[2018-02-02] MEDS ORDERED: hydrOXYzine PAMOATE 50 MG CAPSULE (FP) PO PRN (18:02)
[2018-02-02] MEDS ORDERED: MAGNESIUM HYDROX 2400MG/30ML ORAL SUSPENSION 30 ML CUP PO PRN (18:02)
[2018-02-02] MEDS ORDERED: MENTHOL/PHENOL 1 EACH UD MM PRN (18:02)
[2018-02-02] MEDS ORDERED: MAG HYDROX/AL HYDROX/SIMETH 30 ML UNIT-DOSE CUP PO PRN (18:02)
[2018-02-02] MEDS: QUEtiapine FUMARATE 100 MG TABLET (FP) PO SCH (21:35)
[2018-02-02] MEDS: BUDESONIDE/FORMETEROL FUMARATE 160/4.5 mcg INHALER IH SCH (21:35)
[2018-02-02] MEDS: THIAMINE HCL 100 MG TABLET (FP) PO SCH (21:35)
[2018-02-02] MEDS ORDERED: MELATONIN 5 MG TABLETS PO PRN (22:00)
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
[2018-02-03] MEDS: QUEtiapine FUMARATE 100 MG TABLET (FP) PO SCH ×2 (10:21→21:35)
[2018-02-03] MEDS: BUDESONIDE/FORMETEROL FUMARATE 160/4.5 mcg INHALER IH SCH ×2 (10:21→21:35)
[2018-02-03] MEDS: PRENATAL VITAMINS W/ FOLIC ACID TABLET (FP) PO SCH (10:21)
[2018-02-03] MEDS: NICOTINE 14 MG/24 HOURS TOPICAL PATCH TD SCH (10:22)
[2018-02-03] MEDS ORDERED: FLU VACCINE QUAD 60 MCG/0.5 ML (MDV 18-19) IM ONE (12:00)
[2018-02-03] MEDS ORDERED: PNEUMOCOCCAL 23 VACCINE 0.5 ML VIAL IM ONE (12:00)
[2018-02-03] MEDS ORDERED: PNEUMOC 13-VAL CONJ-DIP CRM/PF 0.5 ML DISP.SYRIN IM ONE (12:00)
--- NOTE | 2018-02-03 13:05 | PN ---
[facility] Note: PT COMPLETED DETOX ON [address] [place] [address] ON 02/02/18 AND ADMITTED TO [address] [place] [address] REHAB. PT DID NOT MAKE INFORMATION ABOUT BEING IN MMTP AVAILABLE ON REVIEWING ADMITTING H/P. PT NOW REPORTS TO NURSE IN REHAB THAT HE WAS ON METHADONE MAINTENANCE AND WOULD LIKE TO GET BACK. NURSE JENNIFER GUTIERREZ VERIFIED THAT PATIENT IS ON [facility] TO ACCEPT PATIENT BACK INTO TREATMENT SHOULD PATIENT GET RESTARTED ON MMTP WHILE IN REHAB HERE. THIS CASE WAS REVIEWED WITH THE [place] STRAIGHTENER, DR. TRI MEHTA AND RECOMMENDS THAT PATIENT CAN BE RESTARTED AND BUILT UP WITH METHADONE 10 MG PO DAILY EVERY OTHER DAY TO THE MAINTENANCE DOSE
[2018-02-03] MEDS ORDERED: METHADONE HCL 10 MG TABLET PO ONE (14:13)
[2018-02-03] MEDS: THIAMINE HCL 100 MG TABLET (FP) PO SCH (21:35)
--- NOTE | 2018-02-03 22:17 | EKG ---
Test Reason : Blood Pressure : / mmHG Vent. Rate : 100 BPM Atrial Rate : 100 BPM P-R Int : 162 ms QRS Dur : 096 ms QT Int : 390 ms P-R-T Axes : 055 -20 057 degrees QTc Int : 503 ms NORMAL SINUS RHYTHM LEFT ATRIAL ENLARGEMENT LEFT VENTRICULAR HYPERTROPHY NONSPECIFIC T WAVE ABNORMALITY PROLONGED QT ABNORMAL ECG WHEN COMPARED WITH ECG OF 28-JAN-2018 11:38, NO SIGNIFICANT CHANGE WAS FOUND Confirmed by AMOL GILLETTE MD ([id number]) on 02/03/2018 10:17:06 PM Referred By: Rosanna CASTILLO Confirmed By:AMOL GILLETTE MD
[2018-02-04] MEDS ORDERED: METHADONE HCL 10 MG TABLET PO ONE (06:00)
[2018-02-04] MEDS: PRENATAL VITAMINS W/ FOLIC ACID TABLET (FP) PO SCH (10:32)
[2018-02-04] MEDS: NICOTINE 14 MG/24 HOURS TOPICAL PATCH TD SCH (10:32)
[2018-02-04] MEDS: BUDESONIDE/FORMETEROL FUMARATE 160/4.5 mcg INHALER IH SCH ×2 (10:33→22:02)
--- NOTE | 2018-02-04 15:58 | PN ---
[facility] Progress Note Note: ADMISSION EKG;NSR LAE LVH NONSPECIF T WAVE ABNORMALITY, PROLONGED QT ABNORMAL EKG PT IS ASYMTOMATIC. ALERT O X 3. OOB. NAD. REPEAT EKG ON 02/05/18 @ 9 A.M
[2018-02-04] MEDS: THIAMINE HCL 100 MG TABLET (FP) PO SCH (22:02)
[2018-02-04] MEDS: QUEtiapine FUMARATE 100 MG TABLET (FP) PO SCH (22:02)
[2018-02-05] MEDS ORDERED: METHADONE HCL 10 MG TABLET PO ONE (06:00)
[2018-02-05] MEDS: BUDESONIDE/FORMETEROL FUMARATE 160/4.5 mcg INHALER IH SCH ×2 (10:20→21:52)
[2018-02-05] MEDS: PRENATAL VITAMINS W/ FOLIC ACID TABLET (FP) PO SCH (10:20)
[2018-02-05] MEDS: NICOTINE 14 MG/24 HOURS TOPICAL PATCH TD SCH (10:21)
[2018-02-05] MEDS: THIAMINE HCL 100 MG TABLET (FP) PO SCH (21:53)
[2018-02-05] MEDS: QUEtiapine FUMARATE 100 MG TABLET (FP) PO SCH (21:53)
[2018-02-06] MEDS ORDERED: METHADONE HCL 10 MG TABLET PO ONE (06:00)
[2018-02-06] MEDS: NICOTINE 14 MG/24 HOURS TOPICAL PATCH TD SCH (10:09)
[2018-02-06] MEDS: BUDESONIDE/FORMETEROL FUMARATE 160/4.5 mcg INHALER IH SCH ×2 (10:10→22:10)
[2018-02-06] MEDS: PRENATAL VITAMINS W/ FOLIC ACID TABLET (FP) PO SCH (10:10)
[2018-02-06] MEDS: QUEtiapine FUMARATE 100 MG TABLET (FP) PO SCH (22:10)
[2018-02-06] MEDS: THIAMINE HCL 100 MG TABLET (FP) PO SCH (22:10)
[2018-02-07] MEDS ORDERED: METHADONE HCL 10 MG TABLET PO ONE (06:00)
[2018-02-07] MEDS: BUDESONIDE/FORMETEROL FUMARATE 160/4.5 mcg INHALER IH SCH ×2 (10:24→21:53)
[2018-02-07] MEDS: PRENATAL VITAMINS W/ FOLIC ACID TABLET (FP) PO SCH (10:24)
[2018-02-07] MEDS: NICOTINE 14 MG/24 HOURS TOPICAL PATCH TD SCH (10:24)
[2018-02-07] MEDS ORDERED: QUEtiapine FUMARATE 100 MG TABLET (FP) PO SCH (17:30)
--- NOTE | 2018-02-07 17:30 | PN ---
[facility] Progress Note Note: Patient reports ongoing anxiety,restlessness since the day he was admitted, stating that Seroquel used to help him in the past to cope with mood instability ,anxiety.Properties of Seroquel has been discussed with the patient including side effects,benefits and dose adjustment.Patient is notified about metabolic , drowsiness,possible QT propolongation.Agreed to start Seroquel 25 mg po bid.Supportive therapy,psychoeducation has been provided.
[2018-02-07] MEDS ORDERED: MELATONIN 5 MG TABLETS PO PRN (17:59)
[2018-02-07] MEDS: QUEtiapine FUMARATE 25 MG TABLET (FP) PO SCH (18:22)
[2018-02-07] MEDS: MELATONIN 5 MG TABLETS PO PRN (21:52)
[2018-02-07] MEDS: THIAMINE HCL 100 MG TABLET (FP) PO SCH (21:52)
[2018-02-08] MEDS: ALBUTEROL SO4 8 GM HFA INHALER IH PRN (05:59)
[2018-02-08] MEDS ORDERED: METHADONE HCL 10 MG TABLET PO ONE (06:00)
[2018-02-08] MEDS: NICOTINE 14 MG/24 HOURS TOPICAL PATCH TD SCH (10:02)
[2018-02-08] MEDS: PRENATAL VITAMINS W/ FOLIC ACID TABLET (FP) PO SCH (10:03)
[2018-02-08] MEDS: BUDESONIDE/FORMETEROL FUMARATE 160/4.5 mcg INHALER IH SCH ×2 (10:03→22:04)
[2018-02-08] MEDS: QUEtiapine FUMARATE 25 MG TABLET (FP) PO SCH ×2 (10:03→13:06)
--- NOTE | 2018-02-08 11:49 | EKG ---
Test Reason : Blood Pressure : / mmHG Vent. Rate : 100 BPM Atrial Rate : 100 BPM P-R Int : 166 ms QRS Dur : 094 ms QT Int : 390 ms P-R-T Axes : 057 -18 051 degrees QTc Int : 503 ms NORMAL SINUS RHYTHM LEFT ATRIAL ENLARGEMENT LEFT VENTRICULAR HYPERTROPHY NONSPECIFIC T WAVE ABNORMALITY PROLONGED QT ABNORMAL ECG WHEN COMPARED WITH ECG OF 03-FEB-2018 11:42, NO SIGNIFICANT CHANGE WAS FOUND Confirmed by Nura Moraes MD ([id number]) on 02/08/2018 11:48:24 AM Referred By: Confirmed By:Nura Moraes MD
[2018-02-08] MEDS ORDERED: hydrOXYzine PAMOATE 25 MG CAPSULE (FP) PO PRN (13:42)
--- NOTE | 2018-02-08 14:18 | PN ---
S Progress Note Note: Vital Signs Temperature 97.9 F 02/08/18 06:52 Pulse Rate 105 H 02/08/18 06:52 Respiratory Rate 18 02/08/18 06:52 Blood Pressure 128/89 02/08/18 06:52 O2 Sat by Pulse Oximetry (%) Patient advise to follow with primary care provider upon discharge.
--- NOTE | 2018-02-08 17:36 | PN ---
[facility] Progress Note Note: Psychiatric nurse practitoner note: Call received stating patient is complaining of anxiety. Chart reviewed. Dr. Ayala and Dr. Mckenzie's note read and appreciated. Patient's EKG noted for a QTC of 503 on February 06. Will order one time dose of vistaril 50mg. Will consult with medical team concerning patient's EKG.
[2018-02-08] MEDS ORDERED: hydrOXYzine PAMOATE 50 MG CAPSULE (FP) PO ONE (18:00)
[2018-02-08] MEDS: THIAMINE HCL 100 MG TABLET (FP) PO SCH (22:04)
[2018-02-08] MEDS: MELATONIN 5 MG TABLETS PO PRN (22:05)
[2018-02-09] MEDS ORDERED: METHADONE HCL 10 MG TABLET PO ONE (06:00)
[2018-02-09] MEDS ORDERED: METHADONE HCL 40 MG DISPERSABLE TABLET PO ONE (06:00)
[2018-02-09] MEDS: QUEtiapine FUMARATE 25 MG TABLET (FP) PO SCH ×2 (10:35→14:30)
[2018-02-09] MEDS: BUDESONIDE/FORMETEROL FUMARATE 160/4.5 mcg INHALER IH SCH ×2 (10:35→21:51)
[2018-02-09] MEDS: PRENATAL VITAMINS W/ FOLIC ACID TABLET (FP) PO SCH (10:35)
[2018-02-09] MEDS: NICOTINE 14 MG/24 HOURS TOPICAL PATCH TD SCH (10:35)
--- NOTE | 2018-02-09 17:00 | PN ---
Psychiatric Progress Note Vital Signs: Vital Signs Period Temp Pulse Resp BP Sys/Dietz Pulse Ox Last 24 Hr 97.8 F 96 18-18 119/90 Date of Session: 02/09/18 Chief Complaint:: Still insomnic HPI: PATIENT ADDRESSED PCP,OPIOID,ANXIOLYTIC DEPENDENCE COMORBID WITH SUBSTANCE INDUCED MOOD DISORDER. Current Medications: Active Medications Generic Name Dose Route Start Last Admin Trade Name Freq PRN Reason Stop Dose Admin Acetaminophen 650 mg 02/02/18 18:02 02/03/18 14:24 Tylenol - PO 650 mg Q4H PRN Administration FEVER Al Hydroxide/Mg Hydroxide 30 ml 02/02/18 18:02 Mylanta Oral Suspension - PO Q6H PRN DYSPEPSIA Albuterol Sulfate 1 amp 02/02/18 18:03 Ventolin 0.083% Nebulizer Soln - NEB Q6H PRN ASTHMA Albuterol Sulfate 2 puff 02/02/18 18:03 02/08/18 05:59 Ventolin Hfa Inhaler - IH 2 inhaler Q4H PRN Administration ASTHMA Budesonide/Formoterol Fumarate 1 puff 02/02/18 22:00 02/09/18 10:35 Symbicort 160/4.5mcg - IH 1 puff BID MARJORIE Administration Eucalyptus/Menthol/Phenol/Sorbitol 1 each 02/02/18 18:02 Cepastat Lozenge - MM Q4H PRN SORE THROAT Guaifenesin 10 ml 02/02/18 18:02 Robitussin Dm - PO Q6H PRN COUGH Ibuprofen 400 mg 02/02/18 18:02 Motrin - PO Q6H PRN Pain Level 4-6 Magnesium Citrate 300 ml 02/02/18 18:02 Citroma - PO Q48H PRN CONSTIPATION Magnesium Hydroxide 30 ml 02/02/18 18:02 Milk Of Magnesia - PO DAILY PRN CONSTIPATION Melatonin 10 mg 02/07/18 18:00 02/08/18 22:05 Melatonin PO 10 mg HS PRN Administration INSOMNIA Nicotine 14 mg 02/03/18 10:00 02/09/18 10:35 Nicoderm Patch - TD 14 mg DAILY MARJORIE Administration Nicotine Polacrilex 2 mg 02/02/18 18:02 Nicorette Gum - BUC Q2H PRN NICOTINE REPLACEMENT RX Multivit/Folic Acid/Iron 1 tab 02/03/18 10:00 02/09/18 10:35 Vitamins (Sjr) - PO 1 tab DAILY MARJORIE Administration Pseudoephedrine/Triprolidine 1 combo 02/02/18 18:02 Actifed - PO TID PRN NASAL CONGESTION Quetiapine Fumarate 25 mg 02/07/18 18:15 02/09/18 14:30 Seroquel - PO 25 mg BID@1000,1400 MARJORIE Administration Thiamine HCl 100 mg 02/02/18 22:00 02/08/18 22:04 Vitamin B1 - PO 100 mg HS MARJORIE Administration Current Side Effect: No Lab tests ordered: No Lab tests reviewed: Yes Provider note:: chart was revuewed,met with the patient.Current treatment plan as well as medication mamnagement has been discussed with the patient .Patient will continue current medications as per plan,considering his ECG changes.Belsomra 10 mg po hs prn for insomnia will be added. supportive therapy ,psychorducation has been provided. Mental Status Exam - Mental Status Exam Alert and Oriented to: Time, Place, Person Cognitive Function: Grossly Intact Patient Appearance: Well Groomed Mood: Nervous, Anxious, Expansive Affect: Mood Congruent, Labile Patient Behavior: Cooperative Speech Pattern: Clear Voice Loudness: Normal Thought Process: Goal Oriented Thought Disorder: Not Present Hallucinations: Denies Suicidal Ideation: Denies Homicidal Ideation: Denies Insight/Judgement: Fair Sleep: Difficulty falling asleep Appetite: Good Muscle strength/Tone: Normal Gait/Station: Normal Psychiatric Treatment Plan - Problem List (1) Cocaine dependence Current Visit: Yes (2) Opioid dependence Current Visit: Yes (3) Phencyclidine dependence Current Visit: Yes (4) Sedative hypnotic or anxiolytic dependence Current Visit: Yes (5) Substance induced mood disorder Current Visit: Yes (6) ADHD (attention deficit hyperactivity disorder) Current Visit: Yes (7) Asthma Current Visit: Yes
[2018-02-09] MEDS: THIAMINE HCL 100 MG TABLET (FP) PO SCH (21:52)
[2018-02-09] MEDS: MELATONIN 5 MG TABLETS PO PRN (21:52)
[2018-02-09] MEDS: SUVOREXANT 10 MG TABLET PO PRN (21:54)
[2018-02-10] MEDS ORDERED: METHADONE HCL 10 MG TABLET PO ONE (06:00)
[2018-02-10] MEDS ORDERED: METHADONE HCL 40 MG DISPERSABLE TABLET PO ONE (06:44)
[2018-02-10] MEDS: BUDESONIDE/FORMETEROL FUMARATE 160/4.5 mcg INHALER IH SCH ×2 (10:38→21:57)
[2018-02-10] MEDS: NICOTINE 14 MG/24 HOURS TOPICAL PATCH TD SCH (10:38)
[2018-02-10] MEDS: PRENATAL VITAMINS W/ FOLIC ACID TABLET (FP) PO SCH (10:38)
[2018-02-10] MEDS: QUEtiapine FUMARATE 25 MG TABLET (FP) PO SCH ×2 (10:38→14:20)
[2018-02-10] MEDS: THIAMINE HCL 100 MG TABLET (FP) PO SCH (21:56)
[2018-02-10] MEDS: MELATONIN 5 MG TABLETS PO PRN (21:56)
[2018-02-10] MEDS: SUVOREXANT 10 MG TABLET PO PRN (21:58)
[2018-02-11] MEDS: ALBUTEROL SO4 8 GM HFA INHALER IH PRN ×2 (03:17→20:00)
[2018-02-11] MEDS ORDERED: METHADONE HCL 10 MG TABLET ONE (05:47)
[2018-02-11] MEDS ORDERED: METHADONE HCL 40 MG DISPERSABLE TABLET ONE (05:47)
[2018-02-11] MEDS ORDERED: METHADONE HCL 10 MG TABLET PO SCH (06:00)
[2018-02-11] MEDS ORDERED: METHADONE HCL 10 MG TABLET PO ONE (06:00)
[2018-02-11] MEDS: METHADONE 40 MG, METHADONE 10 MG PO SCH (06:10)
[2018-02-11] MEDS ORDERED: hydrOXYzine PAMOATE 50 MG CAPSULE (FP) PO ONE ×2 (07:07→20:23)
--- NOTE | 2018-02-11 07:28 | PN ---
[facility] Progress Note Note: patient is anxious Vital Signs Temperature 98.0 F 02/11/18 07:14 Pulse Rate 92 H 02/11/18 07:14 Respiratory Rate 18 02/11/18 07:14 Blood Pressure 121/71 02/11/18 07:14 O2 Sat by Pulse Oximetry (%) on methadone maintenance and seroquel history of prolong qt ,ekg done on 01/31/18 and 02/08/18 no significant change no chest pain,no sob,no dizziness vistaril 50 mgs po one dose close monitoring of patient with moderation of medications
[2018-02-11] MEDS: PRENATAL VITAMINS W/ FOLIC ACID TABLET (FP) PO SCH (10:27)
[2018-02-11] MEDS: NICOTINE 14 MG/24 HOURS TOPICAL PATCH TD SCH (10:27)
[2018-02-11] MEDS: BUDESONIDE/FORMETEROL FUMARATE 160/4.5 mcg INHALER IH SCH ×2 (10:27→21:02)
[2018-02-11] MEDS: QUEtiapine FUMARATE 25 MG TABLET (FP) PO SCH ×2 (10:27→14:06)
--- NOTE | 2018-02-11 16:45 | PN ---
Psychiatric Progress Note Vital Signs: Vital Signs Period Temp Pulse Resp BP Sys/Dietz Pulse Ox Last 24 Hr 98.0 F-98.0 F 92-101 - 121-135/71-85 Date of Session: 02/11/18 Chief Complaint:: Beck very anxious,restless,having panic attacks. HPI: Patient addressed Opioid,PCP dependence comorbid with Substance induced sleep disorder. ROS: CHF,COPD,BA. Current Medications: Active Medications Generic Name Dose Route Start Last Admin Trade Name Freq PRN Reason Stop Dose Admin Acetaminophen 650 mg 02/02/18 18:02 02/03/18 14:24 Tylenol - PO 650 mg Q4H PRN Administration FEVER Al Hydroxide/Mg Hydroxide 30 ml 02/02/18 18:02 Mylanta Oral Suspension - PO Q6H PRN DYSPEPSIA Albuterol Sulfate 1 amp 02/02/18 18:03 Ventolin 0.083% Nebulizer Soln - NEB Q6H PRN ASTHMA Albuterol Sulfate 2 puff 02/02/18 18:03 02/11/18 03:17 Ventolin Hfa Inhaler - IH 2 inhaler Q4H PRN Administration ASTHMA Budesonide/Formoterol Fumarate 1 puff 02/02/18 22:00 02/11/18 10:27 Symbicort 160/4.5mcg - IH 1 puff BID MARJORIE Administration Eucalyptus/Menthol/Phenol/Sorbitol 1 each 02/02/18 18:02 Cepastat Lozenge - MM Q4H PRN SORE THROAT Guaifenesin 10 ml 02/02/18 18:02 Robitussin Dm - PO Q6H PRN COUGH Ibuprofen 400 mg 02/02/18 18:02 Motrin - PO Q6H PRN Pain Level 4-6 Magnesium Citrate 300 ml 02/02/18 18:02 Citroma - PO Q48H PRN CONSTIPATION Magnesium Hydroxide 30 ml 02/02/18 18:02 Milk Of Magnesia - PO DAILY PRN CONSTIPATION Melatonin 10 mg 02/07/18 18:00 02/10/18 21:56 Melatonin PO 10 mg HS PRN Administration INSOMNIA Methadone HCl 40 mg/ Methadone 50 mg 02/11/18 06:00 02/11/18 06:10 HCl 10 mg PO 02/12/18 06:01 50 mg DAILY@0600 MARJORIE Administration Methadone HCl 40 mg/ Methadone 60 mg 10/14/18 06:00 HCl 20 mg PO 02/19/18 06:01 DAILY@0600 MARJORIE Nicotine 14 mg 02/03/18 10:00 02/11/18 10:27 Nicoderm Patch - TD 14 mg DAILY MARJORIE Administration Nicotine Polacrilex 2 mg 02/02/18 18:02 Nicorette Gum - BUC Q2H PRN NICOTINE REPLACEMENT RX Multivit/Folic Acid/Iron 1 tab 02/03/18 10:00 02/11/18 10:27 Vitamins (Sjr) - PO 1 tab DAILY MARJORIE Administration Pseudoephedrine/Triprolidine 1 combo 02/02/18 18:02 Actifed - PO TID PRN NASAL CONGESTION Quetiapine Fumarate 25 mg 02/12/18 06:00 Seroquel - PO BID@0600,1400 MARJORIE Suvorexant 10 mg 02/09/18 17:01 02/10/18 21:58 Belsomra PO 10 mg HS PRN Administration INSOMNIA Thiamine HCl 100 mg 02/02/18 22:00 02/10/18 21:56 Vitamin B1 - PO 100 mg HS MARJORIE Administration Current Side Effect: No Lab tests ordered: No Lab tests reviewed: Yes Provider note:: Chart was revuewed,met with the patient .He addressed ongoing anxiety ,restlessness,panic behavior with no reasons at time.Patient is preoccupied with negative thoughts about his medical health.Supportive therapy provided focusing on relapse prevention,coping skills,support utilization garcia been discussed with the pation.Relaxation techniques has been discussed. Total face to face time:: 35 Mental Status Exam - Mental Status Exam Alert and Oriented to: Time, Place, Person Cognitive Function: Grossly Intact Patient Appearance: Well Groomed Mood: Anxious, Apprehensive, Euthymic Affect: Labile Patient Behavior: Appropriate, Cooperative Speech Pattern: Clear Voice Loudness: Normal Thought Process: Goal Oriented Thought Disorder: Not Present Hallucinations: Denies Suicidal Ideation: Denies Homicidal Ideation: Denies Insight/Judgement: Fair Sleep: Fair Appetite: Good Muscle strength/Tone: Normal Gait/Station: Normal
[2018-02-11] MEDS: THIAMINE HCL 100 MG TABLET (FP) PO SCH (21:02)
[2018-02-11] MEDS: SUVOREXANT 10 MG TABLET PO PRN (21:03)
[2018-02-11] MEDS: MELATONIN 5 MG TABLETS PO PRN (21:03)
[2018-02-12] MEDS: ALBUTEROL SO4 8 GM HFA INHALER IH PRN ×2 (03:31→14:03)
[2018-02-12] MEDS ORDERED: METHADONE HCL 40 MG DISPERSABLE TABLET ONE (04:39)
[2018-02-12] MEDS ORDERED: METHADONE HCL 10 MG TABLET ONE (04:39)
[2018-02-12] MEDS: METHADONE 40 MG, METHADONE 10 MG PO SCH (06:00)
[2018-02-12] MEDS ORDERED: METHADONE HCL 10 MG TABLET PO ONE (06:00)
[2018-02-12] MEDS: QUEtiapine FUMARATE 25 MG TABLET (FP) PO SCH ×2 (06:22→13:51)
[2018-02-12] MEDS: BUDESONIDE/FORMETEROL FUMARATE 160/4.5 mcg INHALER IH SCH ×2 (10:34→21:40)
[2018-02-12] MEDS: PRENATAL VITAMINS W/ FOLIC ACID TABLET (FP) PO SCH (10:34)
[2018-02-12] MEDS: NICOTINE 14 MG/24 HOURS TOPICAL PATCH TD SCH (10:35)
[2018-02-12] MEDS: MELATONIN 5 MG TABLETS PO PRN (21:41)
[2018-02-12] MEDS: SUVOREXANT 10 MG TABLET PO PRN (21:41)
[2018-02-12] MEDS: THIAMINE HCL 100 MG TABLET (FP) PO SCH (21:41)
[2018-02-13] MEDS ORDERED: METHADONE HCL 10 MG TABLET ONE (05:58)
[2018-02-13] MEDS ORDERED: METHADONE HCL 40 MG DISPERSABLE TABLET ONE (05:59)
[2018-02-13] MEDS ORDERED: METHADONE HCL 10 MG TABLET PO ONE (06:00)
[2018-02-13] MEDS ORDERED: METHADONE HCL 10 MG TABLET PO SCH (06:00)
[2018-02-13] MEDS: METHADONE 40 MG, METHADONE 20 MG PO SCH (06:07)
[2018-02-13] MEDS: QUEtiapine FUMARATE 25 MG TABLET (FP) PO SCH ×2 (06:09→14:54)
[2018-02-13] MEDS: ALBUTEROL SO4 8 GM HFA INHALER IH PRN ×3 (06:46→14:54)
[2018-02-13] MEDS: hydrOXYzine PAMOATE 25 MG CAPSULE (FP) PO PRN ×5 (07:33→23:49)
[2018-02-13] MEDS: PRENATAL VITAMINS W/ FOLIC ACID TABLET (FP) PO SCH (10:42)
[2018-02-13] MEDS: NICOTINE 14 MG/24 HOURS TOPICAL PATCH TD SCH (10:42)
[2018-02-13] MEDS: BUDESONIDE/FORMETEROL FUMARATE 160/4.5 mcg INHALER IH SCH ×2 (10:42→21:26)
[2018-02-13] MEDS: IBUPROFEN 400 MG TABLET (FP) PO PRN (16:52)
[2018-02-13] MEDS: ALBUTEROL SO4 0.083% IH SOL 2.5 MG/3 ML VIAL.NEB. NEB PRN (18:13)
[2018-02-13] MEDS: THIAMINE HCL 100 MG TABLET (FP) PO SCH (21:26)
[2018-02-13] MEDS: SUVOREXANT 10 MG TABLET PO PRN (21:27)
[2018-02-13] MEDS: MELATONIN 5 MG TABLETS PO PRN (21:27)
[2018-02-14] MEDS ORDERED: METHADONE HCL 40 MG DISPERSABLE TABLET ONE (04:03)
[2018-02-14] MEDS ORDERED: METHADONE HCL 10 MG TABLET ONE (04:03)
[2018-02-14] MEDS: hydrOXYzine PAMOATE 25 MG CAPSULE (FP) PO PRN ×5 (04:13→22:12)
[2018-02-14] MEDS: METHADONE 40 MG, METHADONE 20 MG PO SCH (05:55)
[2018-02-14] MEDS: QUEtiapine FUMARATE 25 MG TABLET (FP) PO SCH ×2 (05:55→14:08)
[2018-02-14] MEDS: ALBUTEROL SO4 8 GM HFA INHALER IH PRN ×2 (05:57→18:03)
[2018-02-14] MEDS: NICOTINE 14 MG/24 HOURS TOPICAL PATCH TD SCH (10:58)
[2018-02-14] MEDS: PRENATAL VITAMINS W/ FOLIC ACID TABLET (FP) PO SCH (10:58)
[2018-02-14] MEDS: BUDESONIDE/FORMETEROL FUMARATE 160/4.5 mcg INHALER IH SCH ×2 (11:00→21:48)
[2018-02-14] MEDS: IBUPROFEN 400 MG TABLET (FP) PO PRN (17:35)
[2018-02-14] MEDS: THIAMINE HCL 100 MG TABLET (FP) PO SCH (21:45)
[2018-02-14] MEDS: MELATONIN 5 MG TABLETS PO PRN (21:47)
[2018-02-14] MEDS: SUVOREXANT 10 MG TABLET PO PRN (21:47)
[2018-02-15] MEDS: hydrOXYzine PAMOATE 25 MG CAPSULE (FP) PO PRN ×6 (03:28→22:22)
[2018-02-15] MEDS ORDERED: METHADONE HCL 40 MG DISPERSABLE TABLET ONE (03:39)
[2018-02-15] MEDS ORDERED: METHADONE HCL 10 MG TABLET ONE (03:39)
[2018-02-15] MEDS: METHADONE 40 MG, METHADONE 20 MG PO SCH (06:05)
[2018-02-15] MEDS: QUEtiapine FUMARATE 25 MG TABLET (FP) PO SCH ×2 (06:07→14:04)
[2018-02-15] MEDS: ALBUTEROL SO4 8 GM HFA INHALER IH PRN (07:39)
[2018-02-15] MEDS: PRENATAL VITAMINS W/ FOLIC ACID TABLET (FP) PO SCH (10:24)
[2018-02-15] MEDS: BUDESONIDE/FORMETEROL FUMARATE 160/4.5 mcg INHALER IH SCH ×2 (10:25→21:56)
[2018-02-15] MEDS: NICOTINE 14 MG/24 HOURS TOPICAL PATCH TD SCH (10:25)
[2018-02-15] MEDS: IBUPROFEN 400 MG TABLET (FP) PO PRN (18:08)
[2018-02-15] MEDS: ALBUTEROL SO4 0.083% IH SOL 2.5 MG/3 ML VIAL.NEB. NEB PRN (18:10)
[2018-02-15] MEDS: THIAMINE HCL 100 MG TABLET (FP) PO SCH (21:53)
[2018-02-15] MEDS: MELATONIN 5 MG TABLETS PO PRN (21:55)
[2018-02-15] MEDS: SUVOREXANT 10 MG TABLET PO PRN (21:55)
[2018-02-16] MEDS: ALBUTEROL SO4 8 GM HFA INHALER IH PRN ×2 (01:53→10:21)
[2018-02-16] MEDS: hydrOXYzine PAMOATE 25 MG CAPSULE (FP) PO PRN ×6 (03:15→21:50)
[2018-02-16] MEDS ORDERED: METHADONE HCL 10 MG TABLET ONE (03:39)
[2018-02-16] MEDS ORDERED: METHADONE HCL 40 MG DISPERSABLE TABLET ONE (03:40)
[2018-02-16] MEDS: QUEtiapine FUMARATE 25 MG TABLET (FP) PO SCH ×2 (06:09→14:17)
[2018-02-16] MEDS: METHADONE 40 MG, METHADONE 20 MG PO SCH (06:09)
[2018-02-16] MEDS: PRENATAL VITAMINS W/ FOLIC ACID TABLET (FP) PO SCH (10:20)
[2018-02-16] MEDS: NICOTINE 14 MG/24 HOURS TOPICAL PATCH TD SCH (10:20)
[2018-02-16] MEDS: BUDESONIDE/FORMETEROL FUMARATE 160/4.5 mcg INHALER IH SCH ×2 (10:20→21:50)
[2018-02-16] MEDS: ALBUTEROL SO4 0.083% IH SOL 2.5 MG/3 ML VIAL.NEB. NEB PRN (12:28)
[2018-02-16] MEDS: IBUPROFEN 400 MG TABLET (FP) PO PRN (14:17)
[2018-02-16] MEDS: MELATONIN 5 MG TABLETS PO PRN (21:50)
[2018-02-16] MEDS: THIAMINE HCL 100 MG TABLET (FP) PO SCH (21:50)
[2018-02-16] MEDS: SUVOREXANT 10 MG TABLET PO PRN (21:52)
[2018-02-17] MEDS: hydrOXYzine PAMOATE 25 MG CAPSULE (FP) PO PRN ×6 (01:52→23:17)
[2018-02-17] MEDS: ALBUTEROL SO4 8 GM HFA INHALER IH PRN ×2 (01:55→06:41)
[2018-02-17] MEDS ORDERED: METHADONE HCL 10 MG TABLET ONE (04:08)
[2018-02-17] MEDS ORDERED: METHADONE HCL 40 MG DISPERSABLE TABLET ONE (04:08)
[2018-02-17] MEDS: METHADONE 40 MG, METHADONE 20 MG PO SCH (06:03)
[2018-02-17] MEDS: QUEtiapine FUMARATE 25 MG TABLET (FP) PO SCH ×2 (06:05→13:04)
[2018-02-17] MEDS: BUDESONIDE/FORMETEROL FUMARATE 160/4.5 mcg INHALER IH SCH ×2 (10:30→21:50)
[2018-02-17] MEDS: NICOTINE 14 MG/24 HOURS TOPICAL PATCH TD SCH (10:30)
[2018-02-17] MEDS: PRENATAL VITAMINS W/ FOLIC ACID TABLET (FP) PO SCH (10:30)
[2018-02-17] MEDS: IBUPROFEN 400 MG TABLET (FP) PO PRN (14:54)
[2018-02-17] MEDS: THIAMINE HCL 100 MG TABLET (FP) PO SCH (21:47)
[2018-02-17] MEDS: SUVOREXANT 10 MG TABLET PO PRN (21:49)
[2018-02-17] MEDS: MELATONIN 5 MG TABLETS PO PRN (21:49)
[2018-02-17] MEDS ORDERED: SUVOREXANT 10 MG TABLET PO PRN (22:00)
[2018-02-18] MEDS ORDERED: METHADONE HCL 10 MG TABLET ONE (03:40)
[2018-02-18] MEDS ORDERED: METHADONE HCL 40 MG DISPERSABLE TABLET ONE (03:41)
[2018-02-18] MEDS: hydrOXYzine PAMOATE 25 MG CAPSULE (FP) PO PRN ×5 (04:33→22:04)
[2018-02-18] MEDS: METHADONE 40 MG, METHADONE 20 MG PO SCH (06:10)
[2018-02-18] MEDS: QUEtiapine FUMARATE 25 MG TABLET (FP) PO SCH ×2 (06:11→14:05)
[2018-02-18] MEDS: NICOTINE 14 MG/24 HOURS TOPICAL PATCH TD SCH (10:31)
[2018-02-18] MEDS: PRENATAL VITAMINS W/ FOLIC ACID TABLET (FP) PO SCH (10:31)
[2018-02-18] MEDS: BUDESONIDE/FORMETEROL FUMARATE 160/4.5 mcg INHALER IH SCH ×2 (10:31→21:42)
[2018-02-18] MEDS: THIAMINE HCL 100 MG TABLET (FP) PO SCH (21:42)
[2018-02-18] MEDS: MELATONIN 5 MG TABLETS PO PRN (21:43)
[2018-02-18] MEDS: SUVOREXANT 10 MG TABLET PO PRN (21:43)
[2018-02-19] MEDS: hydrOXYzine PAMOATE 25 MG CAPSULE (FP) PO PRN ×6 (02:08→22:32)
[2018-02-19] MEDS ORDERED: METHADONE HCL 10 MG TABLET ONE (04:31)
[2018-02-19] MEDS ORDERED: METHADONE HCL 40 MG DISPERSABLE TABLET ONE (04:31)
[2018-02-19] MEDS: METHADONE 40 MG, METHADONE 20 MG PO SCH (06:02)
[2018-02-19] MEDS: QUEtiapine FUMARATE 25 MG TABLET (FP) PO SCH ×2 (06:04→14:19)
[2018-02-19] MEDS: NICOTINE 14 MG/24 HOURS TOPICAL PATCH TD SCH (10:26)
[2018-02-19] MEDS: PRENATAL VITAMINS W/ FOLIC ACID TABLET (FP) PO SCH (10:26)
[2018-02-19] MEDS: BUDESONIDE/FORMETEROL FUMARATE 160/4.5 mcg INHALER IH SCH ×2 (10:26→21:51)
[2018-02-19] MEDS: THIAMINE HCL 100 MG TABLET (FP) PO SCH (21:48)
[2018-02-19] MEDS: SUVOREXANT 10 MG TABLET PO PRN (21:50)
[2018-02-19] MEDS: MELATONIN 5 MG TABLETS PO PRN (21:50)
[2018-02-19] MEDS: IBUPROFEN 400 MG TABLET (FP) PO PRN (23:02)
[2018-02-20] MEDS ORDERED: METHADONE HCL 10 MG TABLET ONE (02:28)
[2018-02-20] MEDS ORDERED: METHADONE HCL 40 MG DISPERSABLE TABLET ONE (02:28)
[2018-02-20] MEDS: QUEtiapine FUMARATE 25 MG TABLET (FP) PO SCH ×2 (06:02→13:34)
[2018-02-20] MEDS: METHADONE 40 MG, METHADONE 20 MG PO SCH (06:02)
[2018-02-20] MEDS: hydrOXYzine PAMOATE 25 MG CAPSULE (FP) PO PRN ×5 (06:04→23:38)
[2018-02-20] MEDS: NICOTINE 14 MG/24 HOURS TOPICAL PATCH TD SCH (10:21)
[2018-02-20] MEDS: BUDESONIDE/FORMETEROL FUMARATE 160/4.5 mcg INHALER IH SCH ×2 (10:21→21:45)
[2018-02-20] MEDS: PRENATAL VITAMINS W/ FOLIC ACID TABLET (FP) PO SCH (10:21)
[2018-02-20] MEDS: THIAMINE HCL 100 MG TABLET (FP) PO SCH (21:44)
[2018-02-20] MEDS: SUVOREXANT 10 MG TABLET PO PRN (21:45)
[2018-02-20] MEDS: MELATONIN 5 MG TABLETS PO PRN (21:45)
[2018-02-21] MEDS: hydrOXYzine PAMOATE 25 MG CAPSULE (FP) PO PRN ×6 (03:40→23:48)
[2018-02-21] MEDS ORDERED: METHADONE HCL 10 MG TABLET ONE (04:26)
[2018-02-21] MEDS ORDERED: METHADONE HCL 40 MG DISPERSABLE TABLET ONE (04:27)
[2018-02-21] MEDS: METHADONE 40 MG, METHADONE 20 MG PO SCH (06:00)
[2018-02-21] MEDS: QUEtiapine FUMARATE 25 MG TABLET (FP) PO SCH ×2 (06:02→14:04)
[2018-02-21] MEDS: BUDESONIDE/FORMETEROL FUMARATE 160/4.5 mcg INHALER IH SCH ×2 (10:14→21:56)
[2018-02-21] MEDS: PRENATAL VITAMINS W/ FOLIC ACID TABLET (FP) PO SCH (10:14)
[2018-02-21] MEDS: NICOTINE 14 MG/24 HOURS TOPICAL PATCH TD SCH (10:14)
[2018-02-21] MEDS: THIAMINE HCL 100 MG TABLET (FP) PO SCH (21:46)
[2018-02-21] MEDS: MELATONIN 5 MG TABLETS PO PRN (21:47)
[2018-02-21] MEDS: SUVOREXANT 10 MG TABLET PO PRN (21:47)
[2018-02-22] MEDS ORDERED: METHADONE HCL 10 MG TABLET ONE (04:14)
[2018-02-22] MEDS ORDERED: METHADONE HCL 40 MG DISPERSABLE TABLET ONE (04:14)
[2018-02-22] MEDS: hydrOXYzine PAMOATE 25 MG CAPSULE (FP) PO PRN ×5 (04:51→22:52)
[2018-02-22] MEDS: QUEtiapine FUMARATE 25 MG TABLET (FP) PO SCH ×2 (06:08→14:09)
[2018-02-22] MEDS: METHADONE 40 MG, METHADONE 20 MG PO SCH (06:08)
[2018-02-22] MEDS: NICOTINE 14 MG/24 HOURS TOPICAL PATCH TD SCH (09:02)
[2018-02-22] MEDS: PRENATAL VITAMINS W/ FOLIC ACID TABLET (FP) PO SCH (09:04)
[2018-02-22] MEDS: BUDESONIDE/FORMETEROL FUMARATE 160/4.5 mcg INHALER IH SCH ×2 (09:04→21:40)
[2018-02-22] MEDS: SUVOREXANT 10 MG TABLET PO PRN (21:40)
[2018-02-22] MEDS: MELATONIN 5 MG TABLETS PO PRN (21:40)
[2018-02-22] MEDS: THIAMINE HCL 100 MG TABLET (FP) PO SCH (21:40)
[2018-02-23] MEDS: hydrOXYzine PAMOATE 25 MG CAPSULE (FP) PO PRN ×3 (03:42→11:59)
[2018-02-23] MEDS ORDERED: METHADONE HCL 10 MG TABLET ONE (05:47)
[2018-02-23] MEDS ORDERED: METHADONE HCL 40 MG DISPERSABLE TABLET ONE (05:47)
[2018-02-23] MEDS: QUEtiapine FUMARATE 25 MG TABLET (FP) PO SCH ×2 (06:08→14:28)
[2018-02-23] MEDS: METHADONE 40 MG, METHADONE 20 MG PO SCH (06:08)
[2018-02-23] MEDS: PRENATAL VITAMINS W/ FOLIC ACID TABLET (FP) PO SCH (10:46)
[2018-02-23] MEDS: BUDESONIDE/FORMETEROL FUMARATE 160/4.5 mcg INHALER IH SCH ×2 (10:46→22:19)
[2018-02-23] MEDS: NICOTINE 14 MG/24 HOURS TOPICAL PATCH TD SCH (10:47)
[2018-02-23] MEDS: hydrOXYzine PAMOATE 50 MG CAPSULE (FP) PO PRN ×3 (14:29→22:38)
[2018-02-23] MEDS: THIAMINE HCL 100 MG TABLET (FP) PO SCH (22:19)
[2018-02-23] MEDS: SUVOREXANT 10 MG TABLET PO PRN (22:19)
[2018-02-23] MEDS: MELATONIN 5 MG TABLETS PO PRN (22:20)
[2018-02-24] MEDS: IBUPROFEN 400 MG TABLET (FP) PO PRN ×2 (02:34→22:05)
[2018-02-24] MEDS: hydrOXYzine PAMOATE 50 MG CAPSULE (FP) PO PRN ×6 (02:41→23:40)
[2018-02-24] MEDS ORDERED: METHADONE HCL 40 MG DISPERSABLE TABLET ONE (04:18)
[2018-02-24] MEDS ORDERED: METHADONE HCL 10 MG TABLET ONE (04:18)
[2018-02-24] MEDS: QUEtiapine FUMARATE 25 MG TABLET (FP) PO SCH ×2 (06:00→14:05)
[2018-02-24] MEDS: METHADONE 40 MG, METHADONE 20 MG PO SCH (06:00)
[2018-02-24] MEDS: PRENATAL VITAMINS W/ FOLIC ACID TABLET (FP) PO SCH (10:32)
[2018-02-24] MEDS: NICOTINE 14 MG/24 HOURS TOPICAL PATCH TD SCH (10:32)
[2018-02-24] MEDS: BUDESONIDE/FORMETEROL FUMARATE 160/4.5 mcg INHALER IH SCH ×2 (10:32→22:04)
[2018-02-24] MEDS: SELENIUM SULFIDE 2.5% LOTION 4 OZ. TP SCH (13:08)
[2018-02-24] MEDS: MELATONIN 5 MG TABLETS PO PRN (22:03)
[2018-02-24] MEDS: THIAMINE HCL 100 MG TABLET (FP) PO SCH (22:04)
[2018-02-24] MEDS: SUVOREXANT 10 MG TABLET PO PRN (22:04)
[2018-02-25] MEDS: hydrOXYzine PAMOATE 50 MG CAPSULE (FP) PO PRN ×5 (03:37→22:12)
[2018-02-25] MEDS ORDERED: METHADONE HCL 10 MG TABLET ONE (05:51)
[2018-02-25] MEDS ORDERED: METHADONE HCL 40 MG DISPERSABLE TABLET ONE (05:51)
[2018-02-25] MEDS: QUEtiapine FUMARATE 25 MG TABLET (FP) PO SCH ×2 (05:58→14:48)
[2018-02-25] MEDS: METHADONE 40 MG, METHADONE 20 MG PO SCH (06:00)
[2018-02-25] MEDS: NICOTINE 14 MG/24 HOURS TOPICAL PATCH TD SCH (10:27)
[2018-02-25] MEDS: SELENIUM SULFIDE 2.5% LOTION 4 OZ. TP SCH (10:27)
[2018-02-25] MEDS: BUDESONIDE/FORMETEROL FUMARATE 160/4.5 mcg INHALER IH SCH ×2 (10:27→21:57)
[2018-02-25] MEDS: PRENATAL VITAMINS W/ FOLIC ACID TABLET (FP) PO SCH (10:27)
[2018-02-25] MEDS: SUVOREXANT 10 MG TABLET PO PRN (21:56)
[2018-02-25] MEDS: THIAMINE HCL 100 MG TABLET (FP) PO SCH (21:57)
[2018-02-25] MEDS: MELATONIN 5 MG TABLETS PO PRN (21:57)
[2018-02-26] MEDS: hydrOXYzine PAMOATE 50 MG CAPSULE (FP) PO PRN ×6 (02:27→22:31)
[2018-02-26] MEDS ORDERED: METHADONE HCL 10 MG TABLET ONE (04:07)
[2018-02-26] MEDS ORDERED: METHADONE HCL 40 MG DISPERSABLE TABLET ONE (04:07)
[2018-02-26] MEDS: METHADONE 40 MG, METHADONE 20 MG PO SCH (06:04)
[2018-02-26] MEDS: QUEtiapine FUMARATE 25 MG TABLET (FP) PO SCH ×2 (06:06→14:06)
[2018-02-26] MEDS: PRENATAL VITAMINS W/ FOLIC ACID TABLET (FP) PO SCH (10:40)
[2018-02-26] MEDS: NICOTINE 14 MG/24 HOURS TOPICAL PATCH TD SCH (10:40)
[2018-02-26] MEDS: BUDESONIDE/FORMETEROL FUMARATE 160/4.5 mcg INHALER IH SCH ×2 (10:40→21:44)
[2018-02-26] MEDS: SELENIUM SULFIDE 2.5% LOTION 4 OZ. TP SCH (10:42)
--- NOTE | 2018-02-26 13:46 | PN ---
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
[2018-02-26] MEDS: MELATONIN 5 MG TABLETS PO PRN (21:43)
[2018-02-26] MEDS: THIAMINE HCL 100 MG TABLET (FP) PO SCH (21:43)
[2018-02-26] MEDS: SUVOREXANT 10 MG TABLET PO PRN (21:43)
[2018-02-27] MEDS: hydrOXYzine PAMOATE 50 MG CAPSULE (FP) PO PRN ×5 (03:08→17:34)
[2018-02-27] MEDS ORDERED: METHADONE HCL 10 MG TABLET ONE (04:07)
[2018-02-27] MEDS ORDERED: METHADONE HCL 40 MG DISPERSABLE TABLET ONE (04:07)
[2018-02-27] MEDS: METHADONE 40 MG, METHADONE 20 MG PO SCH (06:02)
[2018-02-27] MEDS: QUEtiapine FUMARATE 25 MG TABLET (FP) PO SCH ×2 (06:03→14:17)
[2018-02-27] MEDS: ALBUTEROL SO4 8 GM HFA INHALER IH PRN ×2 (07:10→14:18)
[2018-02-27] MEDS: BUDESONIDE/FORMETEROL FUMARATE 160/4.5 mcg INHALER IH SCH ×2 (10:06→22:32)
[2018-02-27] MEDS: PRENATAL VITAMINS W/ FOLIC ACID TABLET (FP) PO SCH (10:06)
[2018-02-27] MEDS: NICOTINE 14 MG/24 HOURS TOPICAL PATCH TD SCH (10:07)
[2018-02-27] MEDS: SELENIUM SULFIDE 2.5% LOTION 4 OZ. TP SCH (10:07)
[2018-02-27] MEDS: THIAMINE HCL 100 MG TABLET (FP) PO SCH (22:08)
[2018-02-27] MEDS: MELATONIN 5 MG TABLETS PO PRN (22:10)
[2018-02-27] MEDS: SUVOREXANT 10 MG TABLET PO PRN (22:11)
[2018-02-28] MEDS: hydrOXYzine PAMOATE 50 MG CAPSULE (FP) PO PRN ×5 (03:06→21:02)
[2018-02-28] MEDS ORDERED: METHADONE HCL 10 MG TABLET ONE (03:28)
[2018-02-28] MEDS ORDERED: METHADONE HCL 40 MG DISPERSABLE TABLET ONE (03:28)
[2018-02-28] MEDS: METHADONE 40 MG, METHADONE 20 MG PO SCH (06:13)
[2018-02-28] MEDS: QUEtiapine FUMARATE 25 MG TABLET (FP) PO SCH ×2 (06:14→14:15)
[2018-02-28] MEDS: PRENATAL VITAMINS W/ FOLIC ACID TABLET (FP) PO SCH (10:52)
[2018-02-28] MEDS: NICOTINE 14 MG/24 HOURS TOPICAL PATCH TD SCH (10:53)
[2018-02-28] MEDS: BUDESONIDE/FORMETEROL FUMARATE 160/4.5 mcg INHALER IH SCH ×2 (10:54→21:03)
[2018-02-28] MEDS: SELENIUM SULFIDE 2.5% LOTION 4 OZ. TP SCH (10:55)
[2018-02-28] MEDS: THIAMINE HCL 100 MG TABLET (FP) PO SCH (21:01)
[2018-02-28] MEDS: SUVOREXANT 10 MG TABLET PO PRN (21:01)
[2018-02-28] MEDS: MELATONIN 5 MG TABLETS PO PRN (21:02)
[2018-03-01] MEDS: hydrOXYzine PAMOATE 50 MG CAPSULE (FP) PO PRN ×2 (02:26→07:00)
[2018-03-01] MEDS ORDERED: METHADONE HCL 10 MG TABLET ONE (04:12)
[2018-03-01] MEDS ORDERED: METHADONE HCL 40 MG DISPERSABLE TABLET ONE (04:13)
[2018-03-01] MEDS: METHADONE 40 MG, METHADONE 20 MG PO SCH (06:02)
[2018-03-01] MEDS: QUEtiapine FUMARATE 25 MG TABLET (FP) PO SCH (06:04)
[2018-03-01 07:19] VITALS: BP 136/94; PULSE 93; TEMP 98.1
--- NOTE | 2018-03-01 09:19 | PN ---
Psychiatric Progress Note Vital Signs: Vital Signs Period Temp Pulse Resp BP Sys/Dietz Pulse Ox Last 24 Hr 98.1 F 93 18-18 136/94 Date of Session: 03/01/18 Chief Complaint:: Discharge Note HPI: Patient addressing Opioid, Cocaine , Sedative and Phencyclidine dependence comorbid with Nicotine Dependence, ADHD, Substance-Induced Mood Disorder and Substance-Induced Sleep disorder ROS: Asthma Current Medications: Active Medications Generic Name Dose Route Start Last Admin Trade Name Freq PRN Reason Stop Dose Admin Acetaminophen 650 mg 02/02/18 18:02 02/03/18 14:24 Tylenol - PO 650 mg Q4H PRN Administration FEVER Al Hydroxide/Mg Hydroxide 30 ml 02/02/18 18:02 Mylanta Oral Suspension - PO Q6H PRN DYSPEPSIA Albuterol Sulfate 1 amp 02/02/18 18:03 02/16/18 12:28 Ventolin 0.083% Nebulizer Soln - NEB 1 amp Q6H PRN Administration ASTHMA Albuterol Sulfate 2 puff 02/02/18 18:03 02/27/18 14:18 Ventolin Hfa Inhaler - IH 2 inhaler Q4H PRN Administration ASTHMA Budesonide/Formoterol Fumarate 1 puff 02/02/18 22:00 02/28/18 21:03 Symbicort 160/4.5mcg - IH Not Given BID MARJORIE Eucalyptus/Menthol/Phenol/Sorbitol 1 each 02/02/18 18:02 Cepastat Lozenge - MM Q4H PRN SORE THROAT Guaifenesin 10 ml 02/02/18 18:02 Robitussin Dm - PO Q6H PRN COUGH Hydroxyzine Pamoate 50 mg 02/23/18 14:02 03/01/18 07:00 Vistaril - PO 50 mg Q4H PRN Administration ANXIETY Ibuprofen 400 mg 02/02/18 18:02 02/24/18 22:05 Motrin - PO 400 mg Q6H PRN Administration Pain Level 4-6 Magnesium Citrate 300 ml 02/02/18 18:02 Citroma - PO Q48H PRN CONSTIPATION Magnesium Hydroxide 30 ml 02/02/18 18:02 Milk Of Magnesia - PO DAILY PRN CONSTIPATION Melatonin 10 mg 02/07/18 18:00 02/28/18 21:02 Melatonin PO 10 mg HS PRN Administration INSOMNIA Methadone HCl 40 mg/ Methadone 60 mg 02/25/18 06:00 03/01/18 06:02 HCl 20 mg PO 03/03/18 05:59 60 mg DAILY@0600 MARJORIE Administration Nicotine 14 mg 02/03/18 10:00 02/28/18 10:53 Nicoderm Patch - TD 14 mg DAILY MARJORIE Administration Nicotine Polacrilex 2 mg 02/02/18 18:02 Nicorette Gum - BUC Q2H PRN NICOTINE REPLACEMENT RX Multivit/Folic Acid/Iron 1 tab 02/03/18 10:00 02/28/18 10:52 Vitamins (Sjr) - PO 1 tab DAILY MARJORIE Administration Pseudoephedrine/Triprolidine 1 combo 02/02/18 18:02 Actifed - PO TID PRN NASAL CONGESTION Quetiapine Fumarate 25 mg 02/12/18 06:00 03/01/18 06:04 Seroquel - PO 25 mg BID@0600,1400 MARJORIE Administration Selenium Sulfide 1 applic 02/24/18 11:45 02/28/18 10:55 Selsun 2.5% Lotion - TP 03/03/18 11:42 1 applic DAILY MARJORIE Administration Suvorexant 10 mg 02/26/18 22:00 02/28/18 21:01 Belsomra PO 03/01/18 21:59 10 mg HS PRN Administration INSOMNIA Thiamine HCl 100 mg 02/02/18 22:00 02/28/18 21:01 Vitamin B1 - PO 100 mg HS MARJORIE Administration Current Side Effect: No Lab tests ordered: Yes Lab tests reviewed: Yes Provider note:: Patient has completed this program today. 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 He responded well to Seroquel 25 mg po BID. Script for that medication is electronically transmitted to [facility] at [address] [place] [id number]. He is stable fr discharged today Total face to face time:: 35 Mental Status Exam - Mental Status Exam Alert and Oriented to: Time, Place, Person Cognitive Function: Fair Patient Appearance: Well Groomed Mood: Hopeful, Euthymic Affect: Appropriate Patient Behavior: Cooperative Speech Pattern: Clear Voice Loudness: Normal Thought Process: Intact Thought Disorder: Not Present Hallucinations: Denies Suicidal Ideation: Denies Homicidal Ideation: Denies Insight/Judgement: Fair Sleep: Fair Appetite: Good Muscle strength/Tone: Normal Gait/Station: Normal Psychiatric Treatment Plan - Problem List (1) Opioid dependence Current Visit: Yes (2) Cocaine dependence Current Visit: Yes (3) Sedative hypnotic or anxiolytic dependence Current Visit: Yes (4) Phencyclidine dependence Current Visit: Yes (5) Nicotine dependence Current Visit: Yes (6) ADHD (attention deficit hyperactivity disorder) Current Visit: Yes (7) Substance induced mood disorder Current Visit: Yes (8) Substance-induced sleep disorder Current Visit: Yes (9) Asthma Current Visit: Yes Initial treatment plan: Patient is discharged today and referred [facility]
[2018-03-01] MEDS: NICOTINE 14 MG/24 HOURS TOPICAL PATCH TD SCH (09:36)
[2018-03-01] MEDS: PRENATAL VITAMINS W/ FOLIC ACID TABLET (FP) PO SCH (09:36)
[2018-03-01] MEDS: BUDESONIDE/FORMETEROL FUMARATE 160/4.5 mcg INHALER IH SCH (09:36)
[2018-03-01] MEDS: SELENIUM SULFIDE 2.5% LOTION 4 OZ. TP SCH (09:37)
--- NOTE | 2018-03-01 09:40 | PN ---
S Progress Note Note: PT COMPLETED REHAB AND DISCHARGED TODAY. ALERT O X 3. NAD. PT REPORTS HE HAS PCP DR RENY DOSS AT [address] [place] [address]/[facility]. Vital Signs - 24 hr 03/01/18 03/01/18 03/01/18 00:30 03:30 07:18 Temperature 98.1 F Pulse Rate 93 H Respiratory 18 18 18 Rate Blood Pressure 136/94 NAD PLAN;FOLLOW UP WITH PCP ABOVE WITHIN 1-2 WEEKS AFTER DISCHARGE FROM REHAB.
== END 2018-03-01 10:00 | disposition home or self-care (01) | DRG 772 ==
LOC: YASAS 13:01 → Y5N 13:02
PROVIDERS: ADMIT Psychiatry & Neurology Psychiatry; ATTEND Psychiatry & Neurology Psychiatry
PROC: HZ42ZZZ Group Counseling for Substance Abuse Treatment, Cognitive-Behavioral (ICD-10-PCS; principal; 2018-02-02)
DX: F11.20 Opioid dependence, uncomplicated (principal); F13.20 Sedative, hypnotic or anxiolytic dependence, uncomplicated; F14.20 Cocaine dependence, uncomplicated; F16.20 Hallucinogen dependence, uncomplicated; F17.210 Nicotine dependence, cigarettes, uncomplicated; F19.24 Other psychoactive substance dependence with psychoactive substance-induced mood disorder; F19.282 Other psychoactive substance dependence with psychoactive substance-induced sleep disorder; F90.9 Attention-deficit hyperactivity disorder, unspecified type; J45.909 Unspecified asthma, uncomplicated
CPT/HCPCS: 90688; 90732; 93005; 93010; 94640; G0008; G0009

== ENCOUNTER 2018-06-10 11:12 | Inpatient (IN) | payer OTHER ==
[2018-06-10 11:28] VITALS: BMI 26.6
--- NOTE | 2018-06-10 15:47 | HP ---
CIWA Score Nausea/Vomitin Muscle Tremors: 2 Anxiety: 2 Agitation: 2 Paroxysmal Sweats: 1-Minimal Palms Moist Orientation: 0-Oriented Tacttile Disturbances: 1-Very Mild Itch/Numbness Auditory Disturbances: 1-Very Mild Visual Disturbances: 0-None Headache: 2-Mild CIWA-Ar Total Score: 13 - Admission Criteria OASAS Guidelines: Admission for Medically Managed Detox: Requires at least one of the followin. CIWA greater than 12 2. Seizures within the past 24 hours 3. Delirium tremens within the past 24 hours 4. Hallucinations within the past 24 hours 5. Acute intervention needed for co occurring medical disorder 6. Acute intervention needed for co occurring psychiatric disorder 7. Severe withdrawal that cannot be handled at a lower level of care (continued vomiting, continued diarrhea, abnormal vital signs) requiring intravenous medication and/or fluids 8. Patient presents the following: CIWA greater than 12 Admission Criteria Met: Admission criteria met Admission ROS [facility] - HPI Chief Complaint: i need help to stop drinking alcohol,cocaine,mmtp 15 mgs/day,last medicated today Allergies/Adverse Reactions: Allergies Allergy/AdvReac Type Severity Reaction Status Date / Time No Known Allergies Allergy Verified 01/28/18 09:49 History of Present Illness: this 42 years old male with alcohol,cocaine dependence,withdrawal symptom, seeking detox,last medicated today last detox 01/28/18 to 02/02/18 [facility] detox, rehab 02/02/18 to 03/01/18 anxiety,depression,insomnia non compliance longest sobriety 3 months Exam Limitations: No Limitations - Ebola screening Have you traveled outside of the country in the last 21 days: No Have you had contact with anyone from an Ebola affected area: No Have you been sick,other than usual withdrawal symptoms: No Do you have a fever: No - Review of Systems Constitutional: Loss of Appetite, Malaise, Night Sweats, Weakness, Unintentional Wgt. Loss EENT: reports: Tearing, Nose Congestion Respiratory: reports: No Symptoms reported, Other (asthma on meds) GI: reports: Nausea, Poor Appetite, Abdominal cramping : reports: No Symptoms Reported Musculoskeletal: reports: Back Pain, Muscle Pain Integumentary: reports: Dryness Neuro: reports: Headache, Tremors Endocrine: reports: No Symptoms Reported Hematology: reports: No Symptoms Reported Psychiatric: reports: No Sypmtoms Reported, Judgement Intact, Mood/Affect Appropiate, Orientated x3, Anxious, Depressed, other (insomnia) Other Systems: Reviewed and Negative Patient History - Patient Medical History Hx Anemia: No Hx Asthma: Yes (on Albuterol and Symbicort) Hx Chronic Obstructive Pulmonary Disease (COPD): No Hx Cancer: No Hx Cardiac Disorders: No Hx Congestive Heart Failure: No Hx Hypertension: No Hx Hypercholesterolemia: No Hx Pacemaker: No HX Cerebrovascular Accident: No Hx Seizures: No Hx Diabetes: No Hx Gastrointestinal Disorders: No Hx Liver Disease: No Hx Genitourinary Disorders: No Hx Sexually Transmitted Disorders: No Hx Renal Disease (ESRD): No Hx Thyroid Disease: No Hx Human Immunodeficiency Virus (HIV): No (last 2018 negative) Hx Hepatitis C: No Hx Depression: No (but feeling depressed) Hx Suicide Attempt: No Hx Bipolar Disorder: No Hx Schizophrenia: No Other Medical History: no suicidal,no homicidal,insomnia - Patient Surgical History Past Surgical History: No Hx Neurologic Surgery: No Hx Cataract Extraction: No Hx Cardiac Surgery: No Hx Lung Surgery: No Hx Breast Surgery: No Hx Breast Biopsy: No Hx Abdominal Surgery: No Hx Appendectomy: No Hx Cholecystectomy: No Hx Genitourinary Surgery: No Hx Section: No Hx Orthopedic Surgery: No Anesthesia Reaction: No - PPD History Previous Implant?: Yes Documented Results: Negative w/proof Date: 01/30/18 Results: 0mm PPD to be Administered?: No - Smoking Cessation Smoking history: Current every day smoker Have you smoked in the past 12 months: Yes Aproximately how many cigarettes per day: 4 Hx Chewing Tobacco Use: No Initiated information on smoking cessation: Yes 'Breaking Loose' booklet given: 06/10/18 - Substance & Tx. History Hx Alcohol Use: Yes Hx Substance Use: Yes Substance Use Type: Alcohol, Cocaine, Heroin, Tranquilizers - Substances Abused Alprazolam (Xanax) Route: Oral Frequency: Daily Amount used: 4 tablets of 2 mgs Age of first use: 39 Date of Last Use: 06/09/18 Crack Route: Smoking Frequency: Daily Amount used: 100 dollars Age of first use: 41 Date of Last Use: 06/09/18 Heroin Route: Inhalation Frequency: Daily Amount used: 60 dollars Age of first use: 39 Date of Last Use: 06/10/18 Alcohol Route: Oral Frequency: Daily Amount used: 2 of 6 packs of 12 0zs Age of first use: 40 Date of Last Use: 06/08/18 Family Disease History - Family Disease History Family Disease History: Diabetes: Father (HTN), Heart Disease: Father, Mother ( HTN) Admission Physical Exam [facility] - Vital Signs Vital Signs: Vital Signs - 24 hr 06/10/18 11:23 Temperature 97.9 F Pulse Rate 101 H Respiratory 18 Rate Blood Pressure 102/74 - Physical General Appearance: Yes: Moderate Distress, Tremorous, Irritable, Sweating, Anxious HEENTM: Yes: Normocephalic, RAÚL, Pharynx Normal Respiratory: Yes: Lungs Clear, Normal Breath Sounds, No Respiratory Distress Neck: Yes: Within Normal Limits, Supple, Trachea in good position Breast: Yes: Within Normal Limits Abdominal: Yes: Within Normal Limits, Normal Bowel Sounds, Non Tender, Flat, Soft Genitourinary: Yes: Within Normal Limits Back: Yes: Muscle Spasm Musculoskeletal: Yes: Back pain, Muscle Pain Extremities: Yes: Tremors Neurological: 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: 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 NML intact, Fully Oriented, Alert, Motor Strength 5/5 Integumentary: Yes: Dry Lymphatic: Yes: Within Normal Limits - Diagnostic (1) Alcohol dependence with uncomplicated withdrawal Current Visit: Yes Status: Acute (2) Cocaine dependence Current Visit: No Status: Acute (3) Heroin abuse Current Visit: Yes Status: Acute (4) Uncomplicated sedative, hypnotic or anxiolytic withdrawal Current Visit: Yes Status: Acute (5) Asthma Current Visit: No Status: Chronic (6) Methadone maintenance therapy patient Current Visit: Yes Status: Acute Cleared for Admission [facility] - Detox or Rehab [facility] Level of Care: Medically Managed Detox Regimen/Protocol: Librium [facility] Breath Alcohol Content Breath Alcohol Content: 0 Urine Drug Screen - Results Drug Screen Negative: No Urine Drug Screen Results: ROLA-Cocaine, OPI-Opiates, MTD-Methadone, OXY- Oxycodone, FEN-Fentanyl Inpatient Rehab Admission - Rehab Decision to Admit Inpatient rehab admission?: No
[2018-06-10] MEDS ORDERED: MAG HYDROX/AL HYDROX/SIMETH 30 ML UNIT-DOSE CUP PO PRN (15:59)
[2018-06-10] MEDS ORDERED: hydrOXYzine PAMOATE 50 MG CAPSULE (FP) PO PRN (15:59)
[2018-06-10] MEDS ORDERED: MENTHOL/PHENOL 1 EACH UD MM PRN (15:59)
[2018-06-10] MEDS ORDERED: MAGNESIUM HYDROX 2400MG/30ML ORAL SUSPENSION 30 ML CUP PO PRN (15:59)
[2018-06-10] MEDS ORDERED: P-EPHED 60MG/TRIPROLIDI 2.5MG TABLET PO PRN (15:59)
[2018-06-10] MEDS ORDERED: LOPERAMIDE HCL 2 MG CAPSULE PO PRN (15:59)
[2018-06-10] MEDS ORDERED: guaiFENesin/D-METHORPHAN HB 10 ML UNIT-DOSE CUPS PO PRN (15:59)
[2018-06-10] MEDS ORDERED: MAGNESIUM CITRATE 300 ML BOTTLE PO PRN (15:59)
[2018-06-10] MEDS: chlordiazePOXIDE HCL 25 MG CAPSULE PO SCH ×2 (17:38→22:17)
[2018-06-10] MEDS ORDERED: MELATONIN 5 MG TABLETS PO PRN (22:00)
[2018-06-10] MEDS: THIAMINE HCL 100 MG TABLET (FP) PO SCH (22:17)
[2018-06-10] MEDS: BUDESONIDE/FORMETEROL FUMARATE 160/4.5 mcg INHALER IH SCH (22:18)
[2018-06-11] MEDS: chlordiazePOXIDE HCL 25 MG CAPSULE PO SCH ×4 (05:07→22:07)
[2018-06-11] MEDS: METHADONE HCL 5 MG TABLET PO SCH (05:07)
[2018-06-11] MEDS: BUDESONIDE/FORMETEROL FUMARATE 160/4.5 mcg INHALER IH SCH ×2 (10:16→22:08)
[2018-06-11] MEDS: PRENATAL VITAMINS W/ FOLIC ACID TABLET (FP) PO SCH (10:17)
[2018-06-11 11:34] LABS: ALBUMIN 2.2 g/dl (3.4-5.0); ALK PHOS 102 U/L (45-117); ANION GAP 6 MMOL/L (8-16); BILIRUBIN,TOTAL 0.3 mg/dL (0.2-1); BLOOD UREA NITROGEN 12 mg/dL (7-18); CALCIUM 8.4 mg/dL (8.5-10.1); CHLORIDE 107 mmol/L (98-107); CO2 28 mmol/L (21-32); CREATININE 0.9 mg/dL (0.55-1.3); GLUCOSE,RANDOM 119 mg/dL (74-106); POTASSIUM 4.3 mmol/L (3.5-5.1); SGOT/AST 25 U/L (15-37); SGPT/ALT 73 U/L (13-61); SODIUM 141 mmol/L (136-145); TOT PROT 4.8 g/dl (6.4-8.2)
[2018-06-11 11:57] LABS: MCH 27.2 pg (25.7-33.7); MCHC 32.5 g/dl (32.0-35.9); MEAN CELL VOLUME 83.6 fl (80-96); MEAN PLT VOLUME 11.2 fl (7.5-11.1); PLATELET COUNT 213 K/MM3 (134-434); RBC 4.79 M/mm3 (4.00-5.60); RDW 17.4 % (11.9-15.9); WHITE BLOOD COUNT 10.1 K/mm3 (4.0-10.0)
--- NOTE | 2018-06-11 14:46 | CONSULT ---
[facility] Psych[facility] Consult - Data Date of interview: 06/11/18 [facility] Identifying data: This is one of multiple admissions to [facility] for this 42 y/ o male undergoing detoxification (benzodiazepine, opioid, alcohol, heroin,cocaine). Examined on . Patient is , a father of two, homeless, unemployed and deprived of income. Substance Abuse History: Confirmed by patient in this interview. Details in current [facility] report : Smoking history: Current every day smoker. Have you smoked in the past 12 months: Yes. Aproximately how many cigarettes per day: 4. Hx Chewing Tobacco Use: No. Initiated information on smoking cessation: Yes. 'Breaking Loose' booklet given: 06/10/18. - Substance & Tx. History. Hx Alcohol Use: Yes. Hx Substance Use: Yes. Substance Use Type: Alcohol, Cocaine , Heroin, Tranquilizers. - Substances Abused. Alprazolam (Xanax). Route: Oral. Frequency: Daily. Amount used: 4 tablets of 2 mgs. Age of first use: 39. Date of Last Use: 06/09/18. Crack. Route: Smoking. Frequency: Daily. Amount used: 100 dollars. Age of first use: 41. Date of Last Use: 06/09/18. Heroin. Route: Inhalation. Frequency: Daily. Amount used: 60 dollars. Age of first use: 39. Date of Last Use: 06/10/18. Alcohol. Route: Oral. Frequency: Daily. Amount used: 2 of 6 packs of 12 0zs. Age of first use: 40. Date of Last Use: 06/08/18 Medical History: Remarkable for bronchial asthma, CHF, COPD and chronic lumbar pain. Psychiatric History: Patient denies history of psychiatric hospitalizations. Vague and questionable historian. Mr Leandro made references to ADHD, MDD and Anxiety Disorder. No antecedent of psychiatric aftercare. Seroquel was used in the past to address insomnia. Patient denies history of suicide attempts. Physical/Sexual Abuse/Trauma History: Patient denies. Additional Comment: Urine Drug Screen Results: ROLA-Cocaine, OPI-Opiates, MTD- Methadone, OXY-Oxycodone, FEN-Fentanyl. Noted. Mental Status Exam - Mental Status Exam Alert and Oriented to: Time, Place, Person Cognitive Function: Good Patient Appearance: Well Groomed (tattoos on right + left forearms) Mood: Withdrawn Affect: Appropriate, Normal Range Patient Behavior: Fatigued, Appropriate, Cooperative Speech Pattern: Clear, Appropriate Voice Loudness: Normal Thought Process: Intact, Goal Oriented Thought Disorder: Not Present Hallucinations: Denies Suicidal Ideation: Denies Homicidal Ideation: Denies Insight/Judgement: Poor Sleep: Poorly, Difficulty falling asleep Appetite: Good Muscle strength/Tone: Normal Gait/Station: Normal Psychiatric Findings - Problem List ([place] 1, 2,3) (1) Alcohol dependence with uncomplicated withdrawal Current Visit: Yes Status: Acute (2) Opioid dependence with withdrawal Current Visit: Yes Status: Acute (3) Uncomplicated sedative, hypnotic or anxiolytic withdrawal Current Visit: Yes Status: Acute (4) Cocaine dependence Current Visit: Yes Status: Chronic (5) Nicotine dependence Current Visit: Yes Status: Chronic (6) Substance induced mood disorder Current Visit: Yes Status: Chronic (7) Insomnia Current Visit: Yes Status: Chronic (8) Non-compliance Current Visit: Yes Status: Chronic - Initial Treatment Plan Initial Treatment Plan: Psychoeducation. Detoxification. Sleep hygiene. AA/NA meetings. Groups. Support. Insomnia is addressed with melatonin 5 mg po hs. Side effects/benefits discussed with the patient. Consent (verbal) given. Observation.
--- NOTE | 2018-06-11 16:52 | PN ---
[facility] CIWA - CIWA Score Nausea/Vomitin-No Nausea/No Vomiting Muscle Tremors: 3 Anxiety: 3 Agitation: 4-Moderately Restless Paroxysmal Sweats: 3 Orientation: 0-Oriented Tacttile Disturbances: 0-None Auditory Disturbances: 0-None Visual Disturbances: 0-None Headache: 0-None Present CIWA-Ar Total Score: 13 S Progress Note (SOAP) Subjective: Stated he was not dosed for methadone in the a.m sleep disturbance sweats diarrhea aches and pain Objective: 06/11/18 16:51 A & O x 3 anxious restless Vital Signs Temperature 97.7 F 06/11/18 14:30 Pulse Rate 102 H 06/11/18 14:30 Respiratory Rate 16 06/11/18 14:30 Blood Pressure 107/51 L 06/11/18 14:30 O2 Sat by Pulse Oximetry (%) Laboratory Last Values WBC 10.1 K/mm3 (4.0-10.0) H 06/11/18 07:40 RBC 4.79 M/mm3 (4.00-5.60) 06/11/18 07:40 Hgb 13.0 GM/dL (11.7-16.9) 06/11/18 07:40 Hct 40.0 % (35.4-49) 06/11/18 07:40 MCV 83.6 fl (80-96) 06/11/18 07:40 MCH 27.2 pg (25.7-33.7) 06/11/18 07:40 MCHC 32.5 g/dl (32.0-35.9) 06/11/18 07:40 RDW 17.4 % (11.9-15.9) H 06/11/18 07:40 Plt Count 213 K/MM3 (134-434) D 06/11/18 07:40 MPV 11.2 fl (7.5-11.1) H D 06/11/18 07:40 Sodium 141 mmol/L (136-145) 06/11/18 07:40 Potassium 4.3 mmol/L (3.5-5.1) 06/11/18 07:40 Chloride 107 mmol/L (98-107) 06/11/18 07:40 Carbon Dioxide 28 mmol/L (21-32) 06/11/18 07:40 Anion Gap 6 MMOL/L (8-16) L 06/11/18 07:40 BUN 12 mg/dL (7-18) 06/11/18 07:40 Creatinine 0.9 mg/dL (0.55-1.3) 06/11/18 07:40 Creat Clearance w eGFR > 60 (>60) 06/11/18 07:40 Random Glucose 119 mg/dL (74-106) H 06/11/18 07:40 Calcium 8.4 mg/dL (8.5-10.1) L 06/11/18 07:40 Total Bilirubin 0.3 mg/dL (0.2-1) 06/11/18 07:40 AST 25 U/L (15-37) 06/11/18 07:40 ALT 73 U/L (13-61) H 06/11/18 07:40 Alkaline Phosphatase 102 U/L (45-117) 06/11/18 07:40 Total Protein 4.8 g/dl (6.4-8.2) L 06/11/18 07:40 Albumin 2.2 g/dl (3.4-5.0) L 06/11/18 07:40 RPR Titer Nonreactive (NONREACTIVE) 06/11/18 07:40 labs noted elevated WBC - denies any complaints/symptom of infection Assessment: 06/11/18 16:52 withdrawal sx Plan: continue detox increased hydration
[2018-06-11] MEDS: ACETAMINOPHEN 325 MG TABLET (FP) PO PRN (19:09)
[2018-06-11] MEDS: THIAMINE HCL 100 MG TABLET (FP) PO SCH (22:07)
[2018-06-11] MEDS: IBUPROFEN 400 MG TABLET (FP) PO PRN (22:09)
[2018-06-11] MEDS: LIDOCAINE VISCOUS 2% ORAL/TOP 20 ML UNIT-DOSE CUP MM PRN (23:28)
[2018-06-12] MEDS: chlordiazePOXIDE HCL 25 MG CAPSULE PO PRN (01:55)
[2018-06-12] MEDS: ALBUTEROL SO4 8 GM HFA INHALER IH PRN (04:30)
[2018-06-12] MEDS: chlordiazePOXIDE HCL 25 MG CAPSULE PO SCH ×2 (05:16→10:20)
[2018-06-12] MEDS: METHADONE HCL 5 MG TABLET PO SCH (05:16)
[2018-06-12] MEDS ORDERED: ALBUTEROL SO4 2.5/IPRATROPIUM 0.5 INH SOL 3 ML VIAL.NEB. NEB ONE (06:00)
[2018-06-12] MEDS ORDERED: ALBUTEROL SO4 2.5/IPRATROPIUM 0.5 INH SOL 3 ML VIAL.NEB. NEB PRN (06:01)
[2018-06-12] MEDS: PRENATAL VITAMINS W/ FOLIC ACID TABLET (FP) PO SCH (10:20)
[2018-06-12] MEDS: BUDESONIDE/FORMETEROL FUMARATE 160/4.5 mcg INHALER IH SCH ×2 (10:20→22:06)
[2018-06-12] MEDS: LIDOCAINE VISCOUS 2% ORAL/TOP 20 ML UNIT-DOSE CUP MM PRN (16:19)
--- NOTE | 2018-06-12 16:45 | PN ---
[facility] CIWA - CIWA Score Nausea/Vomitin-Mild Nausea/No Vomiting Muscle Tremors: 3 Anxiety: 3 Agitation: 3 Paroxysmal Sweats: 3 Orientation: 0-Oriented Tacttile Disturbances: 0-None Auditory Disturbances: 0-None Visual Disturbances: 0-None Headache: 0-None Present CIWA-Ar Total Score: 13 S Progress Note (SOAP) Subjective: Sweating, chills, body aches, diarrhea x 2 this morning, interrupted sleep. Patient stated he saw psychiatrist yesterday and was supposed to get seroquel but was told it was not ordered. Patient is requesting to speak with psychiatrist regarding need for seroquel to help him sleep. Objective: 06/12/18 16:43 Vital Signs Temperature 97.9 F 06/12/18 13:18 Pulse Rate 90 06/12/18 13:18 Respiratory Rate 18 06/12/18 13:18 Blood Pressure 125/77 06/12/18 13:18 O2 Sat by Pulse Oximetry (%) Laboratory Tests 06/11/18 06/11/18 06/11/18 07:40 07:40 07:40 WBC 10.1 H RBC 4.79 Hgb 13.0 Hct 40.0 MCV 83.6 MCH 27.2 MCHC 32.5 RDW 17.4 H Plt Count 213 D MPV 11.2 H D Sodium 141 Potassium 4.3 Chloride 107 Carbon Dioxide 28 Anion Gap 6 L BUN 12 Creatinine 0.9 Creat Clearance w eGFR > 60 Random Glucose 119 H Calcium 8.4 L Total Bilirubin 0.3 AST 25 ALT 73 H Alkaline Phosphatase 102 Total Protein 4.8 L Albumin 2.2 L RPR Titer Nonreactive Labs reviewed: albumin 2.2 Assessment: 06/12/18 16:44 Withdrawal symptoms Noted with hypoalbuminemia Plan: Continue detox Encouraged PO water hydration Hypoalbuminemia: add ensure 1 cup PO TID
[2018-06-12] MEDS: chlordiazePOXIDE 5 MG CAPSULE PO SCH ×2 (17:44→22:05)
[2018-06-12] MEDS: ACETAMINOPHEN 325 MG TABLET (FP) PO PRN (17:44)
[2018-06-12] MEDS: THIAMINE HCL 100 MG TABLET (FP) PO SCH (22:05)
[2018-06-12] MEDS: IBUPROFEN 400 MG TABLET (FP) PO PRN (22:05)
[2018-06-13] MEDS: chlordiazePOXIDE 5 MG CAPSULE PO SCH ×2 (06:07→10:23)
[2018-06-13] MEDS: METHADONE HCL 5 MG TABLET PO SCH (06:08)
[2018-06-13] MEDS: ALBUTEROL SO4 8 GM HFA INHALER IH PRN (06:39)
[2018-06-13] MEDS: PRENATAL VITAMINS W/ FOLIC ACID TABLET (FP) PO SCH (10:23)
[2018-06-13] MEDS: BUDESONIDE/FORMETEROL FUMARATE 160/4.5 mcg INHALER IH SCH (10:23)
--- NOTE | 2018-06-13 11:25 | PN ---
[facility] Progress Note (SOAP) Subjective: sweats anxiety I am feeling much better Objective: 06/13/18 11:40 Vital Signs Temperature 97.5 F L 06/13/18 10:32 Pulse Rate 100 H 06/13/18 10:32 Respiratory Rate 18 06/13/18 10:32 Blood Pressure 114/64 06/13/18 10:32 O2 Sat by Pulse Oximetry (%) aaox3 ambulating no acute distress Assessment: 06/13/18 11:41 no s/s of withdrawals Plan: d/c today.
--- NOTE | 2018-06-13 12:06 | DS ---
[facility] Detox Discharge Summary Admission Date: 06/10/18 Discharge Date: 06/13/18 - History Present History: Alcohol Dependence, Cocaine Dependence, Sedative Dependence, MMTP - Physical Exam Results Vital Signs: Vital Signs Temperature 97.5 F L 06/13/18 10:32 Pulse Rate 100 H 06/13/18 10:32 Respiratory Rate 18 06/13/18 10:32 Blood Pressure 114/64 06/13/18 10:32 O2 Sat by Pulse Oximetry (%) - Treatment Hospital Course: Detox Protocol Followed, Detoxed Safely, Responded well, Discharged Condition Good, Rehab Referral Accepted - Medication Discharge Medications: Ambulatory Orders Albuterol 0.083% Nebulizer Betsy [Ventolin 0.083% Nebulizer Soln -] 1 neb NEB Q6H PRN 02/02/18 Albuterol Sulfate Inhaler - [Ventolin HFA Inhaler -] 2 inh PO Q4H PRN #1 inhaler 02/02/18 Budesonide/Formeterol Fumarate [SYMBICORT 160/4.5mcg -] 1 inh PO BID #1 inhaler 02/02/18 Dextroamphetamine/Amphetamine [Adderall 10 mg Tablet] 10 mg PO BID 02/02/18 Quetiapine Fumarate [Seroquel] 50 mg PO DAILY 02/02/18 Quetiapine Fumarate [Seroquel -] 25 mg PO BID@0600,1400 #60 tablet 03/01/18 - AMA Did Patient Leave Against Medical Advice: No (referred to [facility] rehab)
--- NOTE | 2018-06-13 12:18 | PN ---
Psychiatric Progress Note Vital Signs: Vital Signs Period Temp Pulse Resp BP Sys/Dietz Pulse Ox Last 24 Hr 95.7 F-98.6 F 90-113 18-20 111-134/64-93 Date of Session: 06/13/18 Chief Complaint:: My medications HPI: Patient reports not sleeoing well, reports taking prior to admission: Seroquel 100mg po bid and asking to restart it and continue during rehabilitation treatment. Current Medications: Active Medications Generic Name Dose Route Start Last Admin Trade Name Freq PRN Reason Stop Dose Admin Acetaminophen 650 mg 06/10/18 15:59 06/12/18 17:44 Tylenol - PO 650 mg Q4H PRN Administration FEVER Al Hydroxide/Mg Hydroxide 30 ml 06/10/18 15:59 Mylanta Oral Suspension - PO Q6H PRN DYSPEPSIA Albuterol Sulfate 2 puff 06/10/18 16:02 06/13/18 06:39 Ventolin Hfa Inhaler - IH 2 puff Q4H PRN Administration ASTHMA Albuterol/Ipratropium 1 amp 06/12/18 06:01 06/12/18 06:00 Duoneb - NEB 1 amp Q6H PRN Administration SHORTNESS OF BREATH Budesonide/Formoterol Fumarate 2 puff 06/10/18 22:00 06/13/18 10:23 Symbicort 160/4.5mcg - IH 2 puff BID MARJORIE Administration Chlordiazepoxide HCl 25 mg 06/10/18 15:59 06/12/18 01:55 Librium - PO 06/13/18 15:58 25 mg Q4H PRN Administration WITHDRAWAL(CONT SUBST) Chlordiazepoxide HCl 10 mg 06/13/18 17:00 Librium - PO 06/14/18 11:01 [id number] MARJORIE Eucalyptus/Menthol/Phenol/Sorbitol 1 each 06/10/18 15:59 Cepastat Lozenge - MM Q4H PRN SORE THROAT Guaifenesin 10 ml 06/10/18 15:59 Robitussin Dm - PO Q6H PRN COUGH Hydroxyzine Pamoate 50 mg 06/10/18 15:59 Vistaril - PO Q4H PRN AGITATION Ibuprofen 400 mg 06/10/18 15:59 06/12/18 22:05 Motrin - PO 400 mg Q6H PRN Administration PAIN LEVEL 4-6 Lidocaine HCl 20 ml 06/11/18 19:58 06/12/18 16:19 Xylocaine 2% Viscous Oral - MM 20 ml TID PRN Administration ORAL PAIN/MOUTH SORES Loperamide HCl 4 mg 06/10/18 15:59 Imodium - PO Q6H PRN DIARRHEA Magnesium Citrate 300 ml 06/10/18 15:59 Citroma - PO Q48H PRN CONSTIPATION Magnesium Hydroxide 30 ml 06/10/18 15:59 Milk Of Magnesia - PO DAILY PRN CONSTIPATION Melatonin 5 mg 06/10/18 22:00 Melatonin PO HS PRN INSOMNIA Methadone HCl 15 mg 06/11/18 06:00 06/13/18 06:08 Dolophine - PO 06/17/18 06:01 15 mg DAILY@0600 MARJORIE Administration Multivit/Folic Acid/Iron 1 tab 06/11/18 10:00 06/13/18 10:23 Vitamins (Sjr) - PO 1 tab DAILY MARJORIE Administration Pseudoephedrine/Triprolidine 1 combo 06/10/18 15:59 Actifed - PO TID PRN NASAL CONGESTION Quetiapine Fumarate 100 mg 06/13/18 12:15 Seroquel - PO BID MARJORIE Thiamine HCl 100 mg 06/10/18 22:00 06/12/18 22:05 Vitamin B1 - PO 100 mg HS MARJORIE Administration Medication(s) Change(s): Seroquel 100mg po bid Mental Status Exam - Mental Status Exam Alert and Oriented to: Person Cognitive Function: Fair Patient Appearance: Well Groomed Mood: Apprehensive Affect: Mood Congruent Patient Behavior: Cooperative Speech Pattern: Appropriate Voice Loudness: Normal Thought Process: Goal Oriented Thought Disorder: Being Controlled Hallucinations: Denies Suicidal Ideation: Denies Homicidal Ideation: Denies Insight/Judgement: Fair Sleep: Difficulty falling asleep Appetite: Fair Muscle strength/Tone: Normal Gait/Station: Normal Additional Comments: Seroquel 100mg po bid Psychiatric Treatment Plan - Problem List (1) Alcohol dependence with uncomplicated withdrawal Current Visit: Yes (2) Heroin abuse Current Visit: Yes (3) Hypoalbuminemia Current Visit: Yes (4) Sedative hypnotic or anxiolytic dependence Current Visit: Yes (5) Alcohol dependence Current Visit: Yes (6) Asthma Current Visit: Yes (7) Cocaine dependence Current Visit: Yes (8) Methadone maintenance therapy patient Current Visit: Yes (9) Nicotine dependence Current Visit: Yes (10) Non-compliance Current Visit: Yes (11) Opioid dependence Current Visit: Yes (12) Substance induced mood disorder Current Visit: Yes (13) Cocaine dependence, uncomplicated Current Visit: No (14) PCP dependence Current Visit: No (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 Current Visit: No (16) Substance-induced sleep disorder Current Visit: No (17) Weight loss Current Visit: No (18) ADHD (attention deficit hyperactivity disorder) Current Visit: No (19) CHF (congestive heart failure) Current Visit: No Qualifiers: Heart failure type: unspecified Heart failure chronicity: unspecified Qualified Code(s): I50.9 - Heart failure, unspecified (20) COPD (chronic obstructive pulmonary disease) Current Visit: No Qualifiers: COPD type: unspecified COPD Qualified Code(s): J44.9 - Chronic obstructive pulmonary disease, unspecified Initial treatment plan: Seroquel 100mg po bid
[2018-06-13 13:39] VITALS: BP 126/86; PULSE 101; TEMP 98.6
[2018-06-13] MEDS ORDERED: QUEtiapine FUMARATE 100 MG TABLET (FP) PO SCH (14:15)
[2018-06-13] MEDS: chlordiazePOXIDE HCL 25 MG CAPSULE PO PRN (14:23)
[2018-06-13] MEDS ORDERED: chlordiazePOXIDE HCL 10 MG CAPSULE PO SCH (17:00)
== END 2018-06-13 14:35 | disposition other institution (70) | DRG 773 ==
LOC: YASAS 11:12 → Y6N 15:59
PROVIDERS: ADMIT Surgery; ATTEND Surgery
PROC: HZ2ZZZZ Detoxification Services for Substance Abuse Treatment (ICD-10-PCS; principal; 2018-06-10)
DX: F11.23 Opioid dependence with withdrawal (principal); F10.230 Alcohol dependence with withdrawal, uncomplicated; F13.230 Sedative, hypnotic or anxiolytic dependence with withdrawal, uncomplicated; F14.20 Cocaine dependence, uncomplicated; F16.20 Hallucinogen dependence, uncomplicated; F17.210 Nicotine dependence, cigarettes, uncomplicated; F19.24 Other psychoactive substance dependence with psychoactive substance-induced mood disorder; F90.9 Attention-deficit hyperactivity disorder, unspecified type; J45.909 Unspecified asthma, uncomplicated; R77.0 Abnormality of albumin; I50.9 Heart failure, unspecified; G47.00 Insomnia, unspecified; Z91.19 Patient's noncompliance with other medical treatment and regimen
CPT/HCPCS: 36415; 80053; 85027; 86593; 94640

== ENCOUNTER 2018-06-13 14:48 | Inpatient (IN) | payer OTHER ==
--- NOTE | 2018-06-13 13:42 | HP ---
[facility] Rehab Assess/Revision - Admission History Ad[facility] - Findings Detox History & Physical reviewed: Yes Concur with findings: Yes Inpatient Rehab Admission - Rehab Decision to Admit Inpatient rehab admission?: Yes - Initial Determination Are CD services needed?: Yes Free of communicable disease: Yes Not in need of hospitalization: Yes - Rehab Admission Criteria Previous failed treatment: Yes Poor recovery environment: Yes Comorbidities: Yes Lacks judgement: Yes Patient is meeting Inpatient Rehab admission criteria:: Yes
[~2018-06-13 14:48] MED LIST: LOPERAMIDE HCL 2 MG CAPSULE PO PRN; MAGNESIUM CITRATE 300 ML BOTTLE PO PRN; MAGNESIUM HYDROX 2400MG/30ML ORAL SUSPENSION 30 ML CUP PO PRN; MENTHOL/PHENOL 1 EACH UD MM PRN; P-EPHED 60MG/TRIPROLIDI 2.5MG TABLET PO PRN
[2018-06-13] MEDS: THIAMINE HCL 100 MG TABLET (FP) PO SCH (22:01)
[2018-06-13] MEDS: BUDESONIDE/FORMETEROL FUMARATE 160/4.5 mcg INHALER IH SCH (22:01)
[2018-06-13] MEDS: QUEtiapine FUMARATE 100 MG TABLET (FP) PO SCH (22:03)
[2018-06-13] MEDS: MELATONIN 5 MG TABLETS PO PRN (22:04)
[2018-06-14] MEDS ORDERED: METHADONE HCL 5 MG TABLET ONE (07:00)
[2018-06-14] MEDS ORDERED: METHADONE HCL 10 MG TABLET PO SCH (07:00)
[2018-06-14] MEDS ORDERED: METHADONE HCL 10 MG TABLET ONE (07:01)
[2018-06-14] MEDS: METHADONE 10 MG, METHADONE 5 MG PO SCH (07:02)
--- NOTE | 2018-06-14 09:29 | CONSULT ---
[facility] Psychiatric Consult - Data Date of interview: 06/14/18 Admission source: [facility] Identifying data: Mr Reeves is a 42 years old male, father of 2 children, unemployed with no source of income, living with his brother seeking rehab treatment for alcohol, opioid cocaine and benzodiazepine Substance Abuse History: Reports history of alcohol, heroin, cocaine and xanax use. Refer to addiction counselor's summary for further information. Medical History: Significant for bronchial asthma, CHF, COPD and chronic lumbar pain. Smokes 4 cigarettes daily Psychiatric History: Patient is a poor, unreliable historian. Reports being diagnosed with ADHD at approximately age 9 and treated with Adderall. Reports receiving psychiatric care on & off since. Denies previous psychiatric hospitalization or suicidal attempt. Reports psychiatric contact only when admitted to inpt detox/rehab. His last admission to inpatient detox was on . He was seen by Dr Stein on 06/11/18 and prescribed melatonin 5 [address] po HS [address] Dr Briseno on 06/11/18 who prescribed him Seroquel 100 mg po BID. At present reports feeling anxious and sleeping poorly Physical/Sexual Abuse/Trauma History: Denies history of emotional, pysical or sexual abuse as well as DV relationship. No service Additional Comment: Denies criminal history Mental Status Exam - Mental Status Exam Alert and Oriented to: Time, Place, Person Cognitive Function: Fair Patient Appearance: Well Groomed Mood: Anxious Affect: Appropriate Speech Pattern: Clear Voice Loudness: Normal Thought Process: Intact Thought Disorder: Not Present Hallucinations: Denies Suicidal Ideation: Denies Homicidal Ideation: Denies Insight/Judgement: Fair, Poor Sleep: Poorly Appetite: Fair Muscle strength/Tone: Normal Gait/Station: Normal Psychiatric Findings - Problem List ([place] 1, 2,3) (1) ADHD (attention deficit hyperactivity disorder) Current Visit: No Status: Chronic (2) Substance-induced anxiety disorder Current Visit: Yes Status: Acute (3) Substance-induced sleep disorder Current Visit: Yes Status: Acute (4) Alcohol dependence Current Visit: Yes Status: Acute (5) Cocaine dependence Current Visit: Yes Status: Acute (6) Sedative hypnotic or anxiolytic dependence Current Visit: Yes Status: Acute (7) Opioid dependence on agonist therapy Current Visit: Yes Status: Chronic (8) Nicotine dependence Current Visit: Yes Status: Chronic (9) Asthma Current Visit: No Status: Chronic - Initial Treatment Plan Initial Treatment Plan: 1) Start Seroquel 100 mg po HS and Vistaril 50 mg po Q 4hrs prn for anxiety. 2) Continue inpatient rehabilitation
[2018-06-14] MEDS: QUEtiapine FUMARATE 100 MG TABLET (FP) PO SCH ×2 (10:34→22:01)
[2018-06-14] MEDS: NICOTINE 21 MG/24 HOURS TOPICAL PATCH TD SCH (10:34)
[2018-06-14] MEDS: PRENATAL VITAMINS W/ FOLIC ACID TABLET (FP) PO SCH (10:34)
[2018-06-14] MEDS: BUDESONIDE/FORMETEROL FUMARATE 160/4.5 mcg INHALER IH SCH ×2 (10:35→22:00)
--- NOTE | 2018-06-14 11:02 | PN ---
S Progress Note Note: PT IS A 42 Y/O MALE ADMITTED YESTERDAY FROM DETOX . PT C/O PAIN, REDNESS AND SWELLING TO LEFT UPPER EYELID. ALERT O X 3. DENIES FEVER. Vital Signs - 24 hr 06/13/18 06/14/18 06/14/18 15:31 00:30 03:30 Temperature 99.1 F Pulse Rate 107 H Respiratory 18 18 18 Rate Blood Pressure 120/69 06/14/18 07:17 Temperature 97.2 F L Pulse Rate 97 H Respiratory 18 Rate Blood Pressure 132/97 EYE:REDNESS AND SWELLING LEFT UPPER EYELID. NO PUS. A:STY LEFT UPPER EYELID PLAN:WARM COMPRESS TO UPPER EYELID. BACITRACIN OINTMENT DIRECTED.
[2018-06-14] MEDS: IBUPROFEN 400 MG TABLET (FP) PO PRN ×2 (15:19→21:32)
[2018-06-14] MEDS: hydrOXYzine PAMOATE 50 MG CAPSULE (FP) PO PRN (16:43)
[2018-06-14] MEDS: THIAMINE HCL 100 MG TABLET (FP) PO SCH (22:00)
[2018-06-15] MEDS ORDERED: METHADONE HCL 10 MG TABLET ONE (03:19)
[2018-06-15] MEDS ORDERED: METHADONE HCL 5 MG TABLET ONE (03:19)
[2018-06-15] MEDS: METHADONE 10 MG, METHADONE 5 MG PO SCH (06:09)
[2018-06-15] MEDS: BUDESONIDE/FORMETEROL FUMARATE 160/4.5 mcg INHALER IH SCH ×3 (10:27→21:54)
[2018-06-15] MEDS: NICOTINE 21 MG/24 HOURS TOPICAL PATCH TD SCH (10:27)
[2018-06-15] MEDS: PRENATAL VITAMINS W/ FOLIC ACID TABLET (FP) PO SCH (10:27)
[2018-06-15] MEDS: hydrOXYzine PAMOATE 50 MG CAPSULE (FP) PO PRN (10:45)
[2018-06-15] MEDS: IBUPROFEN 400 MG TABLET (FP) PO PRN (10:45)
[2018-06-15] MEDS ORDERED: LIDOCAINE VISCOUS 2% ORAL/TOP 20 ML UNIT-DOSE CUP MM PRN (15:38)
[2018-06-15] MEDS: ACETAMINOPHEN 325 MG TABLET (FP) PO PRN (16:47)
[2018-06-15] MEDS: ALBUTEROL SO4 8 GM HFA INHALER IH PRN (16:48)
[2018-06-15] MEDS: IBUPROFEN 600 MG TABLET (FP) PO PRN (19:11)
[2018-06-15] MEDS: THIAMINE HCL 100 MG TABLET (FP) PO SCH (21:53)
[2018-06-15] MEDS: QUEtiapine FUMARATE 100 MG TABLET (FP) PO SCH (21:53)
[2018-06-16] MEDS: ALBUTEROL SO4 8 GM HFA INHALER IH PRN ×3 (00:42→17:44)
[2018-06-16] MEDS: hydrOXYzine PAMOATE 50 MG CAPSULE (FP) PO PRN ×4 (00:42→17:48)
[2018-06-16] MEDS: ALBUTEROL SO4 2.5/IPRATROPIUM 0.5 INH SOL 3 ML VIAL.NEB. NEB PRN ×2 (02:47→23:48)
[2018-06-16] MEDS ORDERED: METHADONE HCL 10 MG TABLET ONE (05:43)
[2018-06-16] MEDS ORDERED: METHADONE HCL 5 MG TABLET ONE (05:43)
[2018-06-16] MEDS: METHADONE 10 MG, METHADONE 5 MG PO SCH (05:59)
[2018-06-16] MEDS: NICOTINE 21 MG/24 HOURS TOPICAL PATCH TD SCH (10:45)
[2018-06-16] MEDS: PRENATAL VITAMINS W/ FOLIC ACID TABLET (FP) PO SCH (10:45)
[2018-06-16] MEDS: BUDESONIDE/FORMETEROL FUMARATE 160/4.5 mcg INHALER IH SCH ×2 (10:45→21:27)
--- NOTE | 2018-06-16 10:57 | PN ---
Psychiatric Progress Note Vital Signs: Vital Signs Period Temp Pulse Resp BP Sys/Dietz Pulse Ox Last 24 Hr 97.8 F 115 16-16 144/99 Date of Session: 06/16/18 Chief Complaint:: "I feel so anxious that I can't sleep" HPI: Patient addressing alcohol, cocaine and sedative dependence comorbid with opioid dependence on agonist therapy, nicotine dependence, substance-induced anxiety disorder and substance-induced sleep disorder ROS: Asthma Current Medications: Active Medications Generic Name Dose Route Start Last Admin Trade Name Freq PRN Reason Stop Dose Admin Acetaminophen 650 mg 06/13/18 13:42 06/15/18 16:47 Tylenol - PO 650 mg Q4H PRN Administration FEVER Al Hydroxide/Mg Hydroxide 30 ml 06/13/18 13:42 Mylanta Oral Suspension - PO Q6H PRN DYSPEPSIA Albuterol Sulfate 2 puff 06/13/18 13:43 06/16/18 05:07 Ventolin Hfa Inhaler - IH 2 puff Q4H PRN Administration ASTHMA Albuterol/Ipratropium 1 amp 06/16/18 02:41 06/16/18 02:47 Duoneb - NEB 1 amp Q6H PRN Administration SHORTNESS OF BREATH Budesonide/Formoterol Fumarate 1 puff 06/13/18 22:00 06/16/18 10:45 Symbicort 160/4.5mcg - IH 1 puff BID MARJORIE Administration Eucalyptus/Menthol/Phenol/Sorbitol 1 each 06/13/18 13:42 Cepastat Lozenge - MM Q4H PRN SORE THROAT Guaifenesin 10 ml 06/13/18 13:42 Robitussin Dm - PO Q6H PRN COUGH Hydroxyzine Pamoate 50 mg 06/13/18 13:42 06/16/18 10:46 Vistaril - PO 50 mg Q4H PRN Administration AGITATION Ibuprofen 600 mg 06/15/18 15:37 06/15/18 19:11 Motrin - PO 600 mg Q6H PRN Administration Pain Level 4-6 Lidocaine HCl 20 ml 06/15/18 15:38 Xylocaine 2% Viscous Oral - MM Q6HPO PRN ORAL PAIN/MOUTH SORES Loperamide HCl 4 mg 06/13/18 13:42 Imodium - PO Q6H PRN DIARRHEA Magnesium Citrate 300 ml 06/13/18 13:42 Citroma - PO Q48H PRN CONSTIPATION Magnesium Hydroxide 30 ml 06/13/18 13:42 Milk Of Magnesia - PO DAILY PRN CONSTIPATION Melatonin 5 mg 06/13/18 22:00 06/13/18 22:04 Melatonin PO 5 mg HS PRN Administration INSOMNIA Methadone HCl 10 mg/ Methadone 15 mg 06/14/18 07:00 06/16/18 05:59 HCl 5 mg PO 15 mg DAILY@0600 [facility] Administration Nicotine 21 mg 06/14/18 10:00 06/16/18 10:45 Nicoderm Patch - TD Not Given DAILY MARJORIE Nicotine Polacrilex 4 mg 06/13/18 13:42 Nicorette Gum - BUC Q2H PRN NICOTINE REPLACEMENT RX Multivit/Folic Acid/Iron 1 tab 06/14/18 10:00 06/16/18 10:45 Vitamins (Sjr) - PO 1 tab DAILY MARJORIE Administration Pseudoephedrine/Triprolidine 1 combo 06/13/18 13:42 Actifed - PO TID PRN NASAL CONGESTION Quetiapine Fumarate 100 mg 06/14/18 22:00 06/15/18 21:53 Seroquel - PO 100 mg HS MARJORIE Administration Quetiapine Fumarate 25 mg 06/16/18 17:00 Seroquel - PO BID@1000,1700 MARJORIE Thiamine HCl 100 mg 06/13/18 22:00 06/15/18 21:53 Vitamin B1 - PO 100 mg HS MARJORIE Administration Current Side Effect: No Lab tests ordered: Yes Lab tests reviewed: Yes Provider note:: Patient reports that he has been feeling anxious despite taking Seroquel 100 mg po HS and Vistaril 50 mg po Q 4hrs prn for anxiety. Requests to take Seroquel during the day as well. Discussed with patient about taking Seroquel 50 mg po BID in addition to current regimen. Patient agreed with plan Total face to face time:: 25 Mental Status Exam - Mental Status Exam Alert and Oriented to: Time, Place, Person Cognitive Function: Fair Patient Appearance: Well Groomed Mood: Anxious Affect: Appropriate Patient Behavior: Cooperative Speech Pattern: Clear Voice Loudness: Normal Thought Process: Intact Thought Disorder: Not Present Hallucinations: Denies Suicidal Ideation: Denies Homicidal Ideation: Denies Insight/Judgement: Fair Sleep: Poorly Appetite: Good Muscle strength/Tone: Normal Gait/Station: Normal Psychiatric Treatment Plan - Problem List (1) ADHD (attention deficit hyperactivity disorder) Current Visit: No (2) Substance-induced anxiety disorder Current Visit: Yes (3) Substance-induced sleep disorder Current Visit: Yes (4) Alcohol dependence Current Visit: Yes (5) Cocaine dependence Current Visit: Yes (6) Sedative hypnotic or anxiolytic dependence Current Visit: Yes (7) Opioid dependence on agonist therapy Current Visit: Yes (8) Nicotine dependence Current Visit: Yes (9) Asthma Current Visit: No Initial treatment plan: 1) Start Seroquel 50 mg po BID @ 10am & 5 pm. 2) Continue inpatient detoxification
[2018-06-16] MEDS ORDERED: QUEtiapine FUMARATE 50 MG TABLET PO ONE (11:11)
[2018-06-16] MEDS: QUEtiapine FUMARATE 25 MG TABLET (FP) PO SCH (17:48)
[2018-06-16] MEDS: THIAMINE HCL 100 MG TABLET (FP) PO SCH (21:27)
[2018-06-16] MEDS: QUEtiapine FUMARATE 100 MG TABLET (FP) PO SCH (21:27)
[2018-06-17] MEDS: ALBUTEROL SO4 8 GM HFA INHALER IH PRN ×2 (01:11→16:37)
[2018-06-17] MEDS ORDERED: METHADONE HCL 5 MG TABLET ONE (03:12)
[2018-06-17] MEDS ORDERED: METHADONE HCL 10 MG TABLET ONE (03:12)
[2018-06-17] MEDS: ALBUTEROL SO4 2.5/IPRATROPIUM 0.5 INH SOL 3 ML VIAL.NEB. NEB PRN (05:15)
[2018-06-17] MEDS: METHADONE 10 MG, METHADONE 5 MG PO SCH (06:27)
[2018-06-17] MEDS: QUEtiapine FUMARATE 25 MG TABLET (FP) PO SCH ×2 (10:57→17:45)
[2018-06-17] MEDS: hydrOXYzine PAMOATE 50 MG CAPSULE (FP) PO PRN (10:57)
[2018-06-17] MEDS: BUDESONIDE/FORMETEROL FUMARATE 160/4.5 mcg INHALER IH SCH ×2 (10:57→22:02)
[2018-06-17] MEDS: NICOTINE 21 MG/24 HOURS TOPICAL PATCH TD SCH (10:57)
[2018-06-17] MEDS: PRENATAL VITAMINS W/ FOLIC ACID TABLET (FP) PO SCH (10:57)
[2018-06-17] MEDS: IBUPROFEN 600 MG TABLET (FP) PO PRN ×2 (10:58→22:02)
--- NOTE | 2018-06-17 11:45 | PN ---
[facility] Progress Note Note: PT APPEARS VERY ANXIOUS AND REQUESTING AN INCREASE IN HIS METHADONE(PLEASE SEE NURSE'S NOTE BELOW). PT IS DEMANDING AN INCREASE IN METAHDONE OR BE PUT ON SUBOXONE. 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 Search Terms: chan reeves, 1975 Search Date: 06/17/2018 11:32:17 AM The Drug Utilization Report below displays all of the controlled substance prescriptions, if any, that your patient has filled in the last twelve months. The information displayed on this report is compiled from pharmacy submissions to the Department, and accurately reflects the information as submitted by the pharmacies. This report was requested by: Marysol Prasad | Reference #: [id number] You have not added a MARTHA number. Keeping your MARTHA number(s) up to date on the My MARTHA Numbers page will enable the separation of your prescriptions from others ' in the search results. Others' Prescriptions Patient Name: Chan Reeves Date: 1975 Address: [address] [place] [address] Sex: Male Rx Written Rx Dispensed Drug Quantity Days Supply Prescriber Name 01/10/2018 01/10/2018 buprenorphine-naloxone 8-2 mg sl tablet 90 30 Amina Heath) Patient Name: Chan Reeves Date: 1975 Address: [address] [place] [address] Sex: Male Rx Written Rx Dispensed Drug Quantity Days Supply Prescriber Name 11/29/2017 11/29/2017 suboxone 8 mg-2 mg sl film 9 3 Perez Lizama MD Patient Name: Chan Reeves Date: 1975 Address: [address] [place] [address] Sex: Male Rx Written Rx Dispensed Drug Quantity Days Supply Prescriber Name 07/15/2017 07/15/2017 clonazepam 1 mg tablet 60 30 Crissy Emery MD 07/04/2017 07/05/2017 chlordiazepoxide 25 mg capsule 30 15 Crissy Emery MD 06/23/2017 06/23/2017 clonazepam 1 mg tablet 60 30 Crissy Emery MD * - Drugs marked with an asterisk are compound drugs. If the compound drug is made up of more than one controlled substance, then each controlled substance will be a separate row in the table. Click the Report Suspicious Activity button to report information related to controlled substance suspicious activity to the [place] [employer] Enforcement. Click the Send Questions/Comments button to send questions about this report to the [place] [employer], or call . Click the Substance Abuse Treatment Information button to go to the Office of Alcoholism and Substance Abuse Services website, www.[place].gov or call 1- 754.596.9281. COPY OF NURSE'S INTERVENTION WITH [facility] ON . CHAN REEVES Male : 1975 Emr# [id number] 06/16/18 11:14 - Nursing Note by Ayanna Lockett Num: [id number] : 1975 Patient Age: 42 Sprayer Operator MITESH Lockett spoke with Ms Roberto Castillo RN at pt's reported MMTP- [facility]- [phone]. Ms Roberto SAGASTUME informed instructional writer Levy SAGASTUME that Mr Reeves was on 80mg po daily maintenance methadone, however he was placed on an administrative detox plan due to issues with his insurance. Mr Reeves reportedly detoxed from 80mg to 15mg then he "disappeared" and never completed the detox program. According to Ms Castillo, during the administrative detox process Mr Reeves was instructed to "take care of his insurance, but he never did, he just disappeared". Initialized on 06/16/18 11:14 - END OF NOTE PER ABOVE INFORMATION AND PT'S REQUEST, THE TREATMENT TEAM WILL SIT WITH PATIENT AND PLAN ON THE BEST LINE OF CD ACTION/TREATMENT THAT WILL THERAPEUTICALLY BENEFIT MR PATINO IN THE SHORT TERM AND EVENTUALLY, BROADBAND ENGINEER. DISCUSSED PT'S CASE WITH SPRAYER OPERATOR, MARIA LUZ MESSER WHO WILL FOLLOW UP WITH ME/TEAM.
[2018-06-17] MEDS: THIAMINE HCL 100 MG TABLET (FP) PO SCH (22:01)
[2018-06-17] MEDS: QUEtiapine FUMARATE 100 MG TABLET (FP) PO SCH (22:01)
[2018-06-18] MEDS: ALBUTEROL SO4 2.5/IPRATROPIUM 0.5 INH SOL 3 ML VIAL.NEB. NEB PRN ×2 (03:08→14:10)
[2018-06-18] MEDS ORDERED: METHADONE HCL 5 MG TABLET ONE (05:33)
[2018-06-18] MEDS ORDERED: METHADONE HCL 10 MG TABLET ONE (05:33)
[2018-06-18] MEDS: METHADONE 10 MG, METHADONE 5 MG PO SCH (05:47)
[2018-06-18] MEDS: QUEtiapine FUMARATE 25 MG TABLET (FP) PO SCH ×2 (10:39→16:29)
[2018-06-18] MEDS: NICOTINE 21 MG/24 HOURS TOPICAL PATCH TD SCH (10:39)
[2018-06-18] MEDS: PRENATAL VITAMINS W/ FOLIC ACID TABLET (FP) PO SCH (10:40)
[2018-06-18] MEDS: BUDESONIDE/FORMETEROL FUMARATE 160/4.5 mcg INHALER IH SCH ×2 (10:40→21:49)
[2018-06-18] MEDS: IBUPROFEN 600 MG TABLET (FP) PO PRN (10:40)
[2018-06-18] MEDS: hydrOXYzine PAMOATE 50 MG CAPSULE (FP) PO PRN (16:29)
[2018-06-18] MEDS: THIAMINE HCL 100 MG TABLET (FP) PO SCH (21:48)
[2018-06-18] MEDS: QUEtiapine FUMARATE 100 MG TABLET (FP) PO SCH (21:48)
[2018-06-19] MEDS ORDERED: METHADONE HCL 5 MG TABLET ONE (03:09)
[2018-06-19] MEDS ORDERED: METHADONE HCL 10 MG TABLET ONE (03:09)
[2018-06-19] MEDS: METHADONE 10 MG, METHADONE 5 MG PO SCH (06:02)
[2018-06-19] MEDS: PRENATAL VITAMINS W/ FOLIC ACID TABLET (FP) PO SCH (09:32)
[2018-06-19] MEDS: QUEtiapine FUMARATE 25 MG TABLET (FP) PO SCH ×2 (09:32→16:54)
[2018-06-19] MEDS: hydrOXYzine PAMOATE 50 MG CAPSULE (FP) PO PRN ×3 (09:32→21:51)
[2018-06-19] MEDS: NICOTINE 21 MG/24 HOURS TOPICAL PATCH TD SCH (09:32)
[2018-06-19] MEDS: IBUPROFEN 600 MG TABLET (FP) PO PRN ×2 (09:33→21:52)
[2018-06-19] MEDS: BUDESONIDE/FORMETEROL FUMARATE 160/4.5 mcg INHALER IH SCH ×2 (09:33→21:51)
[2018-06-19] MEDS: NICOTINE POLACRILEX 4 MG GUM BUC PRN (09:33)
[2018-06-19] MEDS: ALBUTEROL SO4 8 GM HFA INHALER IH PRN (09:34)
[2018-06-19] MEDS: THIAMINE HCL 100 MG TABLET (FP) PO SCH (21:50)
[2018-06-19] MEDS: QUEtiapine FUMARATE 100 MG TABLET (FP) PO SCH (21:51)
[2018-06-20] MEDS ORDERED: METHADONE HCL 10 MG TABLET ONE (04:49)
[2018-06-20] MEDS ORDERED: METHADONE HCL 5 MG TABLET ONE (04:49)
[2018-06-20] MEDS: METHADONE 10 MG, METHADONE 5 MG PO SCH (06:23)
[2018-06-20] MEDS ORDERED: COLLOIDAL OATMEAL 1 BAR EACH TP PRN (08:55)
[2018-06-20] MEDS: NICOTINE 21 MG/24 HOURS TOPICAL PATCH TD SCH (10:16)
[2018-06-20] MEDS: PRENATAL VITAMINS W/ FOLIC ACID TABLET (FP) PO SCH (10:16)
[2018-06-20] MEDS: BUDESONIDE/FORMETEROL FUMARATE 160/4.5 mcg INHALER IH SCH ×2 (10:17→22:05)
[2018-06-20] MEDS: QUEtiapine FUMARATE 25 MG TABLET (FP) PO SCH ×2 (10:17→17:00)
[2018-06-20] MEDS: hydrOXYzine PAMOATE 50 MG CAPSULE (FP) PO PRN ×2 (10:18→22:07)
--- NOTE | 2018-06-20 12:22 | PN ---
[facility] Progress Note Note: PT WAS SEEN BY THE LITHOPONE MILL WORKER, MARIA LUZ MESSER, THIS OPEN TENTER OPERATOR, AND NURSE JENNIFER GUTIERREZ TODAY. THE LITHOPONE MILL WORKER EXPLAINED TO PT THE NEED TO FOLLOW UP WITH HIS MMTP UPON DISCHARGE TO FURNISH THEM THE INSURANCE PAPERS HE HAD BEEN ASKED TO BRING IN WHILE HE WAS WITH THEM BUT HAS FAILED TO DO SO. PT UNDERSTANDS THE NEED EXPLAINED TO HIM BY THE LITHOPONE MILL WORKER AND WILL FOLLOW UP WITH HIS METHADONE CLINIC AFTER REHAB FOR CONTINUED CARE. ALERT O X 3. NAD. Vital Signs - 24 hr 06/20/18 06/20/18 06/20/18 00:30 03:30 07:12 Temperature 97.5 F L Pulse Rate 108 H Respiratory 18 18 18 Rate Blood Pressure 119/76
[2018-06-20] MEDS: QUEtiapine FUMARATE 100 MG TABLET (FP) PO SCH (22:06)
[2018-06-20] MEDS: IBUPROFEN 600 MG TABLET (FP) PO PRN (22:07)
[2018-06-20] MEDS: THIAMINE HCL 100 MG TABLET (FP) PO SCH (22:08)
[2018-06-21] MEDS ORDERED: METHADONE HCL 5 MG TABLET ONE (04:12)
[2018-06-21] MEDS ORDERED: METHADONE HCL 10 MG TABLET ONE (04:12)
[2018-06-21] MEDS: METHADONE 10 MG, METHADONE 5 MG PO SCH (06:13)
[2018-06-21] MEDS: ALBUTEROL SO4 2.5/IPRATROPIUM 0.5 INH SOL 3 ML VIAL.NEB. NEB PRN ×2 (07:11→23:00)
[2018-06-21] MEDS: NICOTINE 21 MG/24 HOURS TOPICAL PATCH TD SCH (10:39)
[2018-06-21] MEDS: PRENATAL VITAMINS W/ FOLIC ACID TABLET (FP) PO SCH (10:41)
[2018-06-21] MEDS: BUDESONIDE/FORMETEROL FUMARATE 160/4.5 mcg INHALER IH SCH ×2 (10:41→22:07)
[2018-06-21] MEDS: hydrOXYzine PAMOATE 50 MG CAPSULE (FP) PO PRN ×3 (10:41→22:07)
[2018-06-21] MEDS: IBUPROFEN 600 MG TABLET (FP) PO PRN (10:41)
[2018-06-21] MEDS: ALBUTEROL SO4 8 GM HFA INHALER IH PRN ×2 (10:41→22:08)
[2018-06-21] MEDS: QUEtiapine FUMARATE 25 MG TABLET (FP) PO SCH ×2 (10:41→17:38)
[2018-06-21] MEDS: QUEtiapine FUMARATE 100 MG TABLET (FP) PO SCH (22:07)
[2018-06-21] MEDS: MELATONIN 5 MG TABLETS PO PRN (22:07)
[2018-06-21] MEDS: THIAMINE HCL 100 MG TABLET (FP) PO SCH (22:07)
[2018-06-22] MEDS ORDERED: METHADONE HCL 10 MG TABLET ONE (04:34)
[2018-06-22] MEDS ORDERED: METHADONE HCL 5 MG TABLET ONE (04:34)
[2018-06-22] MEDS: METHADONE 10 MG, METHADONE 5 MG PO SCH (06:27)
[2018-06-22] MEDS: BUDESONIDE/FORMETEROL FUMARATE 160/4.5 mcg INHALER IH SCH ×2 (11:00→21:47)
[2018-06-22] MEDS: QUEtiapine FUMARATE 25 MG TABLET (FP) PO SCH ×2 (11:01→17:00)
[2018-06-22] MEDS: PRENATAL VITAMINS W/ FOLIC ACID TABLET (FP) PO SCH (11:01)
[2018-06-22] MEDS: NICOTINE 21 MG/24 HOURS TOPICAL PATCH TD SCH (11:01)
[2018-06-22] MEDS: IBUPROFEN 600 MG TABLET (FP) PO PRN ×2 (11:07→21:49)
[2018-06-22] MEDS: hydrOXYzine PAMOATE 50 MG CAPSULE (FP) PO PRN ×3 (11:07→21:48)
[2018-06-22] MEDS: ALBUTEROL SO4 8 GM HFA INHALER IH PRN (11:09)
[2018-06-22] MEDS ORDERED: MINERAL OIL/PETROLAT/WATER TOPICAL CREAM 113 GM JAR TP PRN (12:18)
[2018-06-22] MEDS: ACETAMINOPHEN 325 MG TABLET (FP) PO PRN (17:01)
[2018-06-22] MEDS: QUEtiapine FUMARATE 100 MG TABLET (FP) PO SCH (21:47)
[2018-06-22] MEDS: THIAMINE HCL 100 MG TABLET (FP) PO SCH (21:47)
[2018-06-22] MEDS: MELATONIN 5 MG TABLETS PO PRN (21:49)
[2018-06-23] MEDS: ALBUTEROL SO4 8 GM HFA INHALER IH PRN (01:49)
[2018-06-23] MEDS ORDERED: METHADONE HCL 10 MG TABLET ONE (04:18)
[2018-06-23] MEDS ORDERED: METHADONE HCL 5 MG TABLET ONE (04:18)
[2018-06-23] MEDS: METHADONE 10 MG, METHADONE 5 MG PO SCH (06:08)
[2018-06-23] MEDS: PRENATAL VITAMINS W/ FOLIC ACID TABLET (FP) PO SCH (10:46)
[2018-06-23] MEDS: QUEtiapine FUMARATE 25 MG TABLET (FP) PO SCH ×2 (10:46→16:23)
[2018-06-23] MEDS: NICOTINE 21 MG/24 HOURS TOPICAL PATCH TD SCH (10:46)
[2018-06-23] MEDS: hydrOXYzine PAMOATE 50 MG CAPSULE (FP) PO PRN ×3 (10:48→21:48)
[2018-06-23] MEDS: ALBUTEROL SO4 2.5/IPRATROPIUM 0.5 INH SOL 3 ML VIAL.NEB. NEB PRN ×2 (10:49→17:51)
[2018-06-23] MEDS: BUDESONIDE/FORMETEROL FUMARATE 160/4.5 mcg INHALER IH SCH ×2 (10:50→21:48)
--- NOTE | 2018-06-23 11:13 | PN ---
[facility] Progress Note Note: PT C/O ASTHMA FLARE UPS ESPECIALLY AT NIGHT WITH SOB. REPORTS USE OF PREDNISONE ON/OFF. ON ALBUTEROL INHALER PRN. PT REPORTS ADMISSION HX AT [facility] FOR CHF-FLUID IN LUNG/FEET EDEMA AND WAS ON LISONOPRIL 2.5 MG PO DAILY AND FUROSEMIDE 40 MG PO DAILY. PT REQUESTING TO RESTART MEDS. C/O EDEMA TO FEET. PT REPORTS HX SEVERE ANXIETY AND SDHD AND TAKES ADDERALL Vital Signs - 24 hr 06/23/18 06/23/18 06/23/18 00:30 03:30 06:38 Temperature 97.8 F Pulse Rate 103 H Respiratory 18 18 16 Rate Blood Pressure 116/70 CARDIA:S1 S2 ,NO MURMUR, TACHYCARDIA LUNGS:CLEAR TO AUSCULTATE, NO RHONCHI FEET: VERY MINIMAL SWELLING. (+)PEDAL PULSES PLAN:RESTART LISINOPRIL AND LASIX. GIVE LASIX 20 MG PO DAILY PREDNISONE 20 MG PO MONICA X 3 DAYS PSYCH RE-EVAL
[2018-06-23] MEDS: predniSONE 20 MG TABLET (UD) PO SCH (12:43)
[2018-06-23] MEDS ORDERED: FUROSEMIDE 20 MG TABLET (FP) PO SCH (16:00)
--- NOTE | 2018-06-23 16:30 | PN ---
Psychiatric Progress Note Vital Signs: Vital Signs Period Temp Pulse Resp BP Sys/Dietz Pulse Ox Last 24 Hr 97.8 F 103 16-18 116/70 Date of Session: 06/23/18 Chief Complaint:: BHS HPI: Patient admitted to rehab for alcohol, opioid cocaine and benzodiazepine. ROS: Significant for bronchial asthma, CHF, COPD and chronic lumbar pain Current Medications: Active Medications Generic Name Dose Route Start Last Admin Trade Name Freq PRN Reason Stop Dose Admin Acetaminophen 650 mg 06/13/18 13:42 06/22/18 17:01 Tylenol - PO 650 mg Q4H PRN Administration FEVER Al Hydroxide/Mg Hydroxide 30 ml 06/13/18 13:42 Mylanta Oral Suspension - PO Q6H PRN DYSPEPSIA Albuterol Sulfate 2 puff 06/13/18 13:43 06/23/18 01:49 Ventolin Hfa Inhaler - IH 2 puff Q4H PRN Administration ASTHMA Albuterol/Ipratropium 1 amp 06/20/18 09:54 06/23/18 10:49 Duoneb - NEB 1 amp Q6H PRN Administration SHORTNESS OF BREATH Budesonide/Formoterol Fumarate 1 puff 06/13/18 22:00 06/23/18 10:50 Symbicort 160/4.5mcg - IH Not Given BID MARJORIE Eucalyptus/Menthol/Phenol/Sorbitol 1 each 06/13/18 13:42 Cepastat Lozenge - MM Q4H PRN SORE THROAT Furosemide 20 mg 06/23/18 16:00 Lasix - PO DAILY MARJORIE Guaifenesin 10 ml 06/13/18 13:42 Robitussin Dm - PO Q6H PRN COUGH Hydroxyzine Pamoate 50 mg 06/13/18 13:42 06/23/18 16:24 Vistaril - PO 50 mg Q4H PRN Administration AGITATION Ibuprofen 600 mg 06/15/18 15:37 06/22/18 21:49 Motrin - PO 600 mg Q6H PRN Administration Pain Level 4-6 Lidocaine HCl 20 ml 06/15/18 15:38 06/18/18 16:29 Xylocaine 2% Viscous Oral - MM 20 ml Q6HPO PRN Administration ORAL PAIN/MOUTH SORES Lisinopril 2.5 mg 06/24/18 10:00 Prinivil PO DAILY MARJORIE Loperamide HCl 4 mg 06/13/18 13:42 Imodium - PO Q6H PRN DIARRHEA Magnesium Citrate 300 ml 06/13/18 13:42 Citroma - PO Q48H PRN CONSTIPATION Magnesium Hydroxide 30 ml 06/13/18 13:42 Milk Of Magnesia - PO DAILY PRN CONSTIPATION Melatonin 5 mg 06/13/18 22:00 06/22/18 21:49 Melatonin PO 5 mg HS PRN Administration INSOMNIA Methadone HCl 10 mg/ Methadone 15 mg 06/20/18 06:00 06/23/18 06:08 HCl 5 mg PO 06/27/18 05:59 15 mg DAILY@0600 MARJORIE Administration Multi-Ingredient Lotion 1 applic 06/22/18 12:18 Eucerin (Small Jar) - TP DAILY PRN DRY SKIN Nicotine 21 mg 06/14/18 10:00 06/23/18 10:46 Nicoderm Patch - TD 21 mg DAILY MARJORIE Administration Nicotine Polacrilex 4 mg 06/13/18 13:42 06/19/18 09:33 Nicorette Gum - BUC 4 mg Q2H PRN Administration NICOTINE REPLACEMENT RX Prednisone 20 mg 06/23/18 11:45 06/23/18 12:43 Deltasone - PO 06/26/18 11:44 20 mg DAILY MARJORIE Administration Multivit/Folic Acid/Iron 1 tab 06/14/18 10:00 06/23/18 10:46 Vitamins (Sjr) - PO 1 tab DAILY MARJORIE Administration Pseudoephedrine/Triprolidine 1 combo 06/13/18 13:42 Actifed - PO TID PRN NASAL CONGESTION Quetiapine Fumarate 100 mg 06/14/18 22:00 06/22/18 21:47 Seroquel - PO 100 mg HS MARJORIE Administration Quetiapine Fumarate 25 mg 06/16/18 17:00 06/23/18 16:23 Seroquel - PO 25 mg BID@1000,1700 MARJORIE Administration Thiamine HCl 100 mg 06/13/18 22:00 06/22/18 21:47 Vitamin B1 - PO 100 mg HS MARJORIE Administration Medication(s) Change(s): Yes. Will add gabapentin 300mg @ 14:00 Current Side Effect: No Lab tests ordered: No Lab tests reviewed: Yes Provider note:: Dr. Mckenzie's note read and appreciated. Patient complaining of worsening anxiety that occurs after 2pm. States 2pm is usually the time the methadone wears off. Mr. Reeves reports being tapered from methadone 50mg to 15mg within two months. Patient was seen by Dr. Mckenzie on 06/16/18 and was prescribed seroquel 25mg @1000 + 1700 to help with patient's anxiety. Client Service Manager will add gabapentin 300mg @ 1400 which is around the time the anxiety worsens. Seroquel 25 doses will not be increased due to risk of sedation. Patient agreeable with plan. Patient encouraged to utilize his coping skills when his anxiety worsens. Benefits and side effects discussed. Verbal consent given. Total face to face time:: 25 Mental Status Exam - Mental Status Exam Alert and Oriented to: Time, Place, Person Cognitive Function: Good Patient Appearance: Well Groomed Mood: Anxious Affect: Mood Congruent Patient Behavior: Cooperative Speech Pattern: Appropriate Voice Loudness: Normal Thought Process: Intact, Goal Oriented Thought Disorder: Not Present Hallucinations: Denies Suicidal Ideation: Denies Homicidal Ideation: Denies Insight/Judgement: Poor Sleep: Fair Appetite: Fair Muscle strength/Tone: Normal Gait/Station: Normal Psychiatric Treatment Plan - Problem List (1) Sedative hypnotic or anxiolytic dependence Current Visit: Yes (2) Substance-induced anxiety disorder Current Visit: Yes (3) Substance-induced sleep disorder Current Visit: Yes (4) ADHD (attention deficit hyperactivity disorder) Current Visit: No (5) Alcohol dependence Current Visit: Yes (6) Cocaine dependence Current Visit: Yes (7) Opioid dependence on agonist therapy Current Visit: Yes
[2018-06-23] MEDS: FUROSEMIDE 40 MG TABLET (FP) PO SCH (18:04)
[2018-06-23] MEDS: QUEtiapine FUMARATE 100 MG TABLET (FP) PO SCH (21:48)
[2018-06-23] MEDS: THIAMINE HCL 100 MG TABLET (FP) PO SCH (21:48)
[2018-06-24] MEDS: ALBUTEROL SO4 2.5/IPRATROPIUM 0.5 INH SOL 3 ML VIAL.NEB. NEB PRN ×2 (04:28→15:26)
[2018-06-24] MEDS ORDERED: METHADONE HCL 5 MG TABLET ONE (06:14)
[2018-06-24] MEDS ORDERED: METHADONE HCL 10 MG TABLET ONE (06:14)
[2018-06-24] MEDS: hydrOXYzine PAMOATE 50 MG CAPSULE (FP) PO PRN ×3 (06:15→21:40)
[2018-06-24] MEDS: METHADONE 10 MG, METHADONE 5 MG PO SCH (06:15)
[2018-06-24] MEDS: ACETAMINOPHEN 325 MG TABLET (FP) PO PRN (07:27)
[2018-06-24] MEDS: PRENATAL VITAMINS W/ FOLIC ACID TABLET (FP) PO SCH (10:26)
[2018-06-24] MEDS: NICOTINE 21 MG/24 HOURS TOPICAL PATCH TD SCH (10:27)
[2018-06-24] MEDS: FUROSEMIDE 40 MG TABLET (FP) PO SCH (10:27)
[2018-06-24] MEDS: QUEtiapine FUMARATE 25 MG TABLET (FP) PO SCH ×2 (10:27→16:49)
[2018-06-24] MEDS: predniSONE 20 MG TABLET (UD) PO SCH (10:27)
[2018-06-24] MEDS: BUDESONIDE/FORMETEROL FUMARATE 160/4.5 mcg INHALER IH SCH ×2 (10:27→21:40)
[2018-06-24] MEDS: LISINOPRIL 5 MG TABLET (FP) PO SCH (10:27)
[2018-06-24] MEDS: GABAPENTIN 300 MG CAPSULE (FP) PO SCH (14:22)
[2018-06-24] MEDS: ALBUTEROL SO4 8 GM HFA INHALER IH PRN (14:23)
[2018-06-24] MEDS: IBUPROFEN 600 MG TABLET (FP) PO PRN (16:50)
[2018-06-24] MEDS: THIAMINE HCL 100 MG TABLET (FP) PO SCH (21:40)
[2018-06-24] MEDS: QUEtiapine FUMARATE 100 MG TABLET (FP) PO SCH (21:40)
[2018-06-25] MEDS ORDERED: METHADONE HCL 5 MG TABLET ONE (04:28)
[2018-06-25] MEDS ORDERED: METHADONE HCL 10 MG TABLET ONE (04:28)
[2018-06-25] MEDS: ALBUTEROL SO4 8 GM HFA INHALER IH PRN ×2 (04:47→10:19)
[2018-06-25] MEDS: METHADONE 10 MG, METHADONE 5 MG PO SCH (06:10)
[2018-06-25] MEDS: hydrOXYzine PAMOATE 50 MG CAPSULE (FP) PO PRN ×2 (06:47→21:53)
[2018-06-25] MEDS: IBUPROFEN 600 MG TABLET (FP) PO PRN (06:47)
[2018-06-25] MEDS: predniSONE 20 MG TABLET (UD) PO SCH (10:12)
[2018-06-25] MEDS: FUROSEMIDE 40 MG TABLET (FP) PO SCH (10:13)
[2018-06-25] MEDS: NICOTINE 21 MG/24 HOURS TOPICAL PATCH TD SCH (10:17)
[2018-06-25] MEDS: BUDESONIDE/FORMETEROL FUMARATE 160/4.5 mcg INHALER IH SCH ×2 (10:17→21:52)
[2018-06-25] MEDS: QUEtiapine FUMARATE 25 MG TABLET (FP) PO SCH ×2 (10:17→17:08)
[2018-06-25] MEDS: PRENATAL VITAMINS W/ FOLIC ACID TABLET (FP) PO SCH (10:17)
[2018-06-25] MEDS: LISINOPRIL 5 MG TABLET (FP) PO SCH (10:17)
[2018-06-25] MEDS: GABAPENTIN 300 MG CAPSULE (FP) PO SCH (14:09)
[2018-06-25] MEDS: ALBUTEROL SO4 2.5/IPRATROPIUM 0.5 INH SOL 3 ML VIAL.NEB. NEB PRN (15:00)
[2018-06-25] MEDS: THIAMINE HCL 100 MG TABLET (FP) PO SCH (21:51)
[2018-06-25] MEDS: QUEtiapine FUMARATE 100 MG TABLET (FP) PO SCH (21:52)
[2018-06-26] MEDS: ALBUTEROL SO4 2.5/IPRATROPIUM 0.5 INH SOL 3 ML VIAL.NEB. NEB PRN ×2 (02:00→09:57)
[2018-06-26] MEDS: hydrOXYzine PAMOATE 50 MG CAPSULE (FP) PO PRN ×3 (04:10→14:27)
[2018-06-26] MEDS: ALBUTEROL SO4 8 GM HFA INHALER IH PRN ×2 (04:11→14:27)
[2018-06-26] MEDS ORDERED: METHADONE HCL 5 MG TABLET ONE (05:24)
[2018-06-26] MEDS ORDERED: METHADONE HCL 10 MG TABLET ONE (05:24)
[2018-06-26] MEDS: ACETAMINOPHEN 325 MG TABLET (FP) PO PRN (05:57)
[2018-06-26] MEDS: METHADONE 10 MG, METHADONE 5 MG PO SCH (05:58)
[2018-06-26] MEDS: LISINOPRIL 5 MG TABLET (FP) PO SCH (10:04)
[2018-06-26] MEDS: FUROSEMIDE 40 MG TABLET (FP) PO SCH (10:04)
[2018-06-26] MEDS: predniSONE 20 MG TABLET (UD) PO SCH (10:19)
[2018-06-26] MEDS: PRENATAL VITAMINS W/ FOLIC ACID TABLET (FP) PO SCH (10:19)
[2018-06-26] MEDS: QUEtiapine FUMARATE 25 MG TABLET (FP) PO SCH ×2 (10:19→16:56)
[2018-06-26] MEDS: BUDESONIDE/FORMETEROL FUMARATE 160/4.5 mcg INHALER IH SCH ×2 (10:20→21:50)
[2018-06-26] MEDS: NICOTINE 21 MG/24 HOURS TOPICAL PATCH TD SCH (10:20)
[2018-06-26] MEDS: IBUPROFEN 600 MG TABLET (FP) PO PRN (10:22)
[2018-06-26] MEDS: GABAPENTIN 300 MG CAPSULE (FP) PO SCH (13:42)
[2018-06-26] MEDS: THIAMINE HCL 100 MG TABLET (FP) PO SCH (21:50)
[2018-06-26] MEDS: QUEtiapine FUMARATE 100 MG TABLET (FP) PO SCH (21:50)
[2018-06-27] MEDS: hydrOXYzine PAMOATE 50 MG CAPSULE (FP) PO PRN ×2 (01:08→16:47)
[2018-06-27] MEDS: IBUPROFEN 600 MG TABLET (FP) PO PRN ×3 (01:09→22:06)
[2018-06-27] MEDS: ALBUTEROL SO4 2.5/IPRATROPIUM 0.5 INH SOL 3 ML VIAL.NEB. NEB PRN ×3 (01:11→22:50)
[2018-06-27] MEDS ORDERED: METHADONE HCL 5 MG TABLET ONE (04:22)
[2018-06-27] MEDS ORDERED: METHADONE HCL 10 MG TABLET ONE (04:23)
[2018-06-27] MEDS ORDERED: METHADONE HCL 10 MG TABLET PO SCH (06:00)
[2018-06-27] MEDS: METHADONE 10 MG, METHADONE 5 MG PO SCH (06:06)
[2018-06-27] MEDS: ALBUTEROL SO4 8 GM HFA INHALER IH PRN (06:07)
[2018-06-27] MEDS: PRENATAL VITAMINS W/ FOLIC ACID TABLET (FP) PO SCH (10:56)
[2018-06-27] MEDS: NICOTINE 21 MG/24 HOURS TOPICAL PATCH TD SCH (10:56)
[2018-06-27] MEDS: LISINOPRIL 5 MG TABLET (FP) PO SCH (10:56)
[2018-06-27] MEDS: BUDESONIDE/FORMETEROL FUMARATE 160/4.5 mcg INHALER IH SCH ×2 (10:57→22:05)
[2018-06-27] MEDS: QUEtiapine FUMARATE 25 MG TABLET (FP) PO SCH ×2 (10:58→16:46)
[2018-06-27] MEDS: FUROSEMIDE 40 MG TABLET (FP) PO SCH (10:58)
[2018-06-27] MEDS: NICOTINE POLACRILEX 4 MG GUM BUC PRN (10:59)
[2018-06-27] MEDS ORDERED: SODIUM PHOSPHATE/NA BIPHOS 133 ML ENEMA PR ONE (11:04)
[2018-06-27] MEDS: GABAPENTIN 300 MG CAPSULE (FP) PO SCH (14:09)
[2018-06-27] MEDS: THIAMINE HCL 100 MG TABLET (FP) PO SCH (22:04)
[2018-06-27] MEDS: QUEtiapine FUMARATE 100 MG TABLET (FP) PO SCH (22:04)
[2018-06-27] MEDS: MELATONIN 5 MG TABLETS PO PRN (22:06)
[2018-06-28] MEDS: hydrOXYzine PAMOATE 50 MG CAPSULE (FP) PO PRN ×4 (03:52→21:57)
[2018-06-28] MEDS ORDERED: METHADONE HCL 5 MG TABLET ONE (04:33)
[2018-06-28] MEDS ORDERED: METHADONE HCL 10 MG TABLET ONE (04:33)
[2018-06-28] MEDS: ALBUTEROL SO4 2.5/IPRATROPIUM 0.5 INH SOL 3 ML VIAL.NEB. NEB PRN ×2 (04:55→14:00)
[2018-06-28] MEDS: METHADONE 10 MG, METHADONE 5 MG PO SCH (06:15)
[2018-06-28] MEDS: ACETAMINOPHEN 325 MG TABLET (FP) PO PRN (06:16)
[2018-06-28] MEDS: FUROSEMIDE 40 MG TABLET (FP) PO SCH (10:49)
[2018-06-28] MEDS: LISINOPRIL 5 MG TABLET (FP) PO SCH (10:49)
[2018-06-28] MEDS: NICOTINE 21 MG/24 HOURS TOPICAL PATCH TD SCH (10:49)
[2018-06-28] MEDS: PRENATAL VITAMINS W/ FOLIC ACID TABLET (FP) PO SCH (10:49)
[2018-06-28] MEDS: QUEtiapine FUMARATE 25 MG TABLET (FP) PO SCH ×2 (10:50→17:21)
[2018-06-28] MEDS: BUDESONIDE/FORMETEROL FUMARATE 160/4.5 mcg INHALER IH SCH ×2 (10:51→21:58)
[2018-06-28] MEDS: NICOTINE POLACRILEX 4 MG GUM BUC PRN ×2 (10:51→14:48)
[2018-06-28] MEDS ORDERED: COLLOIDAL OATMEAL 1 BAR EACH TP PRN (12:38)
[2018-06-28] MEDS: GABAPENTIN 300 MG CAPSULE (FP) PO SCH (13:59)
[2018-06-28] MEDS: ALBUTEROL SO4 8 GM HFA INHALER IH PRN (17:52)
[2018-06-28] MEDS: THIAMINE HCL 100 MG TABLET (FP) PO SCH (21:56)
[2018-06-28] MEDS: QUEtiapine FUMARATE 100 MG TABLET (FP) PO SCH (21:56)
[2018-06-28] MEDS: IBUPROFEN 600 MG TABLET (FP) PO PRN (21:57)
[2018-06-28] MEDS: MELATONIN 5 MG TABLETS PO PRN (21:57)
[2018-06-29] MEDS: ALBUTEROL SO4 2.5/IPRATROPIUM 0.5 INH SOL 3 ML VIAL.NEB. NEB PRN ×2 (03:45→20:33)
[2018-06-29] MEDS ORDERED: METHADONE HCL 5 MG TABLET ONE (04:36)
[2018-06-29] MEDS ORDERED: METHADONE HCL 10 MG TABLET ONE (04:37)
[2018-06-29] MEDS: hydrOXYzine PAMOATE 50 MG CAPSULE (FP) PO PRN ×3 (06:14→21:52)
[2018-06-29] MEDS: IBUPROFEN 600 MG TABLET (FP) PO PRN ×2 (06:14→16:39)
[2018-06-29] MEDS: METHADONE 10 MG, METHADONE 5 MG PO SCH (06:15)
[2018-06-29] MEDS: PRENATAL VITAMINS W/ FOLIC ACID TABLET (FP) PO SCH (10:42)
[2018-06-29] MEDS: LISINOPRIL 5 MG TABLET (FP) PO SCH (10:42)
[2018-06-29] MEDS: QUEtiapine FUMARATE 25 MG TABLET (FP) PO SCH ×2 (10:42→16:37)
[2018-06-29] MEDS: FUROSEMIDE 40 MG TABLET (FP) PO SCH (10:45)
[2018-06-29] MEDS: BUDESONIDE/FORMETEROL FUMARATE 160/4.5 mcg INHALER IH SCH ×2 (10:45→21:52)
[2018-06-29] MEDS: NICOTINE 21 MG/24 HOURS TOPICAL PATCH TD SCH (10:45)
[2018-06-29] MEDS: NICOTINE POLACRILEX 4 MG GUM BUC PRN (10:46)
[2018-06-29] MEDS: GABAPENTIN 300 MG CAPSULE (FP) PO SCH (13:21)
[2018-06-29] MEDS: QUEtiapine FUMARATE 100 MG TABLET (FP) PO SCH (21:52)
[2018-06-29] MEDS: ACETAMINOPHEN 325 MG TABLET (FP) PO PRN (21:53)
[2018-06-29] MEDS: THIAMINE HCL 100 MG TABLET (FP) PO SCH (21:54)
[2018-06-29] MEDS: cloNIDine HCL 0.1 MG TABLET PO PRN (21:54)
[2018-06-29] MEDS: ALBUTEROL SO4 8 GM HFA INHALER IH PRN (23:37)
[2018-06-30] MEDS ORDERED: METHADONE HCL 5 MG TABLET ONE (04:25)
[2018-06-30] MEDS ORDERED: METHADONE HCL 10 MG TABLET ONE (04:25)
[2018-06-30] MEDS: METHADONE 10 MG, METHADONE 5 MG PO SCH (06:07)
[2018-06-30] MEDS: IBUPROFEN 600 MG TABLET (FP) PO PRN ×2 (06:07→14:05)
[2018-06-30] MEDS: ALBUTEROL SO4 2.5/IPRATROPIUM 0.5 INH SOL 3 ML VIAL.NEB. NEB PRN ×2 (07:09→15:25)
[2018-06-30] MEDS: hydrOXYzine PAMOATE 50 MG CAPSULE (FP) PO PRN ×3 (07:24→21:51)
[2018-06-30] MEDS: NICOTINE POLACRILEX 4 MG GUM BUC PRN ×2 (07:24→09:34)
[2018-06-30] MEDS: PRENATAL VITAMINS W/ FOLIC ACID TABLET (FP) PO SCH (09:32)
[2018-06-30] MEDS: NICOTINE 21 MG/24 HOURS TOPICAL PATCH TD SCH (09:33)
[2018-06-30] MEDS: FUROSEMIDE 40 MG TABLET (FP) PO SCH (09:33)
[2018-06-30] MEDS: LISINOPRIL 5 MG TABLET (FP) PO SCH (09:33)
[2018-06-30] MEDS: ALBUTEROL SO4 8 GM HFA INHALER IH PRN (09:34)
[2018-06-30] MEDS: BUDESONIDE/FORMETEROL FUMARATE 160/4.5 mcg INHALER IH SCH ×2 (09:34→21:51)
[2018-06-30] MEDS: QUEtiapine FUMARATE 25 MG TABLET (FP) PO SCH ×2 (09:34→16:55)
[2018-06-30] MEDS: GABAPENTIN 300 MG CAPSULE (FP) PO SCH (14:05)
[2018-06-30] MEDS: THIAMINE HCL 100 MG TABLET (FP) PO SCH (21:51)
[2018-06-30] MEDS: QUEtiapine FUMARATE 100 MG TABLET (FP) PO SCH (21:51)
[2018-06-30] MEDS: ACETAMINOPHEN 325 MG TABLET (FP) PO PRN (21:52)
[2018-06-30] MEDS: cloNIDine HCL 0.1 MG TABLET PO PRN (21:53)
[2018-07-01] MEDS: ALBUTEROL SO4 8 GM HFA INHALER IH PRN ×2 (02:10→06:23)
[2018-07-01] MEDS: ALBUTEROL SO4 2.5/IPRATROPIUM 0.5 INH SOL 3 ML VIAL.NEB. NEB PRN ×2 (04:10→12:45)
[2018-07-01] MEDS ORDERED: METHADONE HCL 5 MG TABLET ONE (04:16)
[2018-07-01] MEDS ORDERED: METHADONE HCL 10 MG TABLET ONE (04:16)
[2018-07-01] MEDS: METHADONE 10 MG, METHADONE 5 MG PO SCH (06:01)
[2018-07-01] MEDS: IBUPROFEN 600 MG TABLET (FP) PO PRN ×2 (06:23→17:41)
[2018-07-01] MEDS: hydrOXYzine PAMOATE 50 MG CAPSULE (FP) PO PRN ×3 (06:24→21:56)
[2018-07-01] MEDS: NICOTINE POLACRILEX 4 MG GUM BUC PRN ×3 (07:22→17:42)
[2018-07-01] MEDS: QUEtiapine FUMARATE 25 MG TABLET (FP) PO SCH ×2 (10:40→17:41)
[2018-07-01] MEDS: PRENATAL VITAMINS W/ FOLIC ACID TABLET (FP) PO SCH (10:40)
[2018-07-01] MEDS: FUROSEMIDE 40 MG TABLET (FP) PO SCH (10:40)
[2018-07-01] MEDS: NICOTINE 21 MG/24 HOURS TOPICAL PATCH TD SCH (10:40)
[2018-07-01] MEDS: LISINOPRIL 5 MG TABLET (FP) PO SCH (10:40)
[2018-07-01] MEDS: BUDESONIDE/FORMETEROL FUMARATE 160/4.5 mcg INHALER IH SCH ×2 (10:42→21:55)
[2018-07-01] MEDS: cloNIDine HCL 0.1 MG TABLET PO PRN ×2 (11:38→22:56)
--- NOTE | 2018-07-01 11:46 | PN ---
[facility] Progress Note Note: PT STILL SEVERE ANXIETY AND STATES HE IS "OUT OF BREATH" ON/OFF. PT SEEN OOB AMBULATING ON HALLWAY AND SOMETIMES ON THE PHONE. PT REPORTS HE IS NOT SLEEPING WELL. PT VERBALIZING CONCERN WITH THE SITUATION OF HIS METHADONE DOSE AT HIS CLINIC(SEE NURSE BRENDA'S NOTES OF 06/16/18 AND 06/17/18). THE CARE TEAM HAS MET SINCE AFTER THE ABOVE NOTES AND THE MANAGER MUSIC MARIA LUZ MESSER REACHED OUT TO THE CLINIC AND REPORTS THE CLINIC MAINTAINS WHEN PT COMES BACK HE WILL CONTINUE THEIR PLAN OF CARE. ALERT O X 3. Vital Signs (72 hours) 06/29/18 06/29/18 06/29/18 00:30 03:30 06:58 Temperature 98.2 F Pulse Rate 112 H Respiratory 18 18 18 Rate Blood Pressure 123/78 O2 Sat by Pulse Oximetry (%) 06/29/18 06/30/18 06/30/18 10:00 00:30 03:30 Temperature Pulse Rate 116 H Respiratory 18 18 Rate Blood Pressure 113/81 O2 Sat by Pulse Oximetry (%) 06/30/18 06/30/18 06/30/18 07:22 07:39 22:16 Temperature 98.5 F Pulse Rate 111 H 86 111 H Respiratory 18 Rate Blood Pressure 133/80 107/64 O2 Sat by Pulse 98 Oximetry (%) 07/01/18 07/01/18 07/01/18 00:30 03:30 07:05 Temperature 97.7 F Pulse Rate 114 H Respiratory 20 18 17 Rate Blood Pressure 116/77 O2 Sat by Pulse Oximetry (%) 07/01/18 09:21 Temperature Pulse Rate 117 H Respiratory 17 Rate Blood Pressure 115/69 O2 Sat by Pulse Oximetry (%) Active Medications Generic Name Dose Route Start Last Admin Trade Name Freq PRN Reason Stop Dose Admin Acetaminophen 650 mg 06/13/18 13:42 06/30/18 21:52 Tylenol - PO 650 mg Q4H PRN Administration FEVER Al Hydroxide/Mg Hydroxide 30 ml 06/13/18 13:42 Mylanta Oral Suspension - PO Q6H PRN DYSPEPSIA Albuterol Sulfate 2 puff 06/13/18 13:43 07/01/18 06:23 Ventolin Hfa Inhaler - IH 2 puff Q4H PRN Administration ASTHMA Albuterol/Ipratropium 1 amp 06/29/18 22:32 07/01/18 12:45 Duoneb - NEB 1 amp Q6H PRN Administration SHORTNESS OF BREATH Budesonide/Formoterol Fumarate 1 puff 06/13/18 22:00 07/01/18 10:42 Symbicort 160/4.5mcg - IH 1 puff BID MARJORIE Administration Clonidine 0.1 mg 06/29/18 10:58 07/01/18 11:38 Catapres - PO 0.1 mg BID PRN Administration WITHDRAWAL(CONT SUBST) Eucalyptus/Menthol/Phenol/Sorbitol 1 each 06/13/18 13:42 Cepastat Lozenge - MM Q4H PRN SORE THROAT Furosemide 20 mg 06/23/18 17:00 07/01/18 10:40 Lasix - PO 20 mg DAILY MARJORIE Administration Gabapentin 300 mg 06/24/18 14:00 07/01/18 13:08 Neurontin - PO 300 mg DAILY@1400 [facility] Administration Guaifenesin 10 ml 06/13/18 13:42 Robitussin Dm - PO Q6H PRN COUGH Hydroxyzine Pamoate 50 mg 06/13/18 13:42 07/01/18 10:43 Vistaril - PO 50 mg Q4H PRN Administration AGITATION Ibuprofen 600 mg 06/15/18 15:37 07/01/18 06:23 Motrin - PO 600 mg Q6H PRN Administration Pain Level 4-6 Lidocaine HCl 20 ml 06/15/18 15:38 06/18/18 16:29 Xylocaine 2% Viscous Oral - MM 20 ml Q6HPO PRN Administration ORAL PAIN/MOUTH SORES Lisinopril 2.5 mg 06/24/18 10:00 07/01/18 10:40 Prinivil PO 2.5 mg DAILY MARJORIE Administration Loperamide HCl 4 mg 06/13/18 13:42 Imodium - PO Q6H PRN DIARRHEA Magnesium Citrate 300 ml 06/13/18 13:42 Citroma - PO Q48H PRN CONSTIPATION Magnesium Hydroxide 30 ml 06/13/18 13:42 Milk Of Magnesia - PO DAILY PRN CONSTIPATION Melatonin 5 mg 06/13/18 22:00 06/28/18 21:57 Melatonin PO 5 mg HS PRN Administration INSOMNIA Methadone HCl 10 mg/ Methadone 15 mg 06/27/18 06:15 07/01/18 06:01 HCl 5 mg PO 15 mg DAILY@0600 MARJORIE Administration Multi-Ingredient Lotion 1 applic 06/22/18 12:18 Eucerin (Small Jar) - TP DAILY PRN DRY SKIN Nicotine 21 mg 06/14/18 10:00 07/01/18 10:40 Nicoderm Patch - TD Not Given DAILY MARJORIE Nicotine Polacrilex 4 mg 06/13/18 13:42 07/01/18 10:43 Nicorette Gum - BUC 4 mg Q2H PRN Administration NICOTINE REPLACEMENT RX Multivit/Folic Acid/Iron 1 tab 06/14/18 10:00 07/01/18 10:40 Vitamins (Sjr) - PO 1 tab DAILY MARJORIE Administration Pseudoephedrine/Triprolidine 1 combo 06/13/18 13:42 Actifed - PO TID PRN NASAL CONGESTION Quetiapine Fumarate 100 mg 06/14/18 22:00 06/30/18 21:51 Seroquel - PO 100 mg HS MARJORIE Administration Quetiapine Fumarate 25 mg 06/16/18 17:00 07/01/18 10:40 Seroquel - PO 25 mg BID@1000,1700 MARJORIE Administration Thiamine HCl 100 mg 06/13/18 22:00 06/30/18 21:51 Vitamin B1 - PO 100 mg HS MARJORIE Administration PULSE OX=93% ROOM AIR CARDIAC:S1 S2, TACHYCARDIA. LUNGS:CLEAR TO AUSCULTATE, BILATERALLY. NO WHEEZING OR RHONCHI NOTED. PLAN:PSYCH RE-EVAL FOR INSOMNIA TODAY.
[2018-07-01] MEDS: GABAPENTIN 300 MG CAPSULE (FP) PO SCH (13:08)
[2018-07-01] MEDS: THIAMINE HCL 100 MG TABLET (FP) PO SCH (21:55)
[2018-07-01] MEDS: QUEtiapine FUMARATE 100 MG TABLET (FP) PO SCH (21:55)
[2018-07-01] MEDS: ACETAMINOPHEN 325 MG TABLET (FP) PO PRN (21:57)
[2018-07-01] MEDS: MELATONIN 5 MG TABLETS PO PRN (21:57)
[2018-07-02] MEDS: ALBUTEROL SO4 2.5/IPRATROPIUM 0.5 INH SOL 3 ML VIAL.NEB. NEB PRN ×2 (03:44→18:58)
[2018-07-02] MEDS ORDERED: METHADONE HCL 5 MG TABLET ONE (06:05)
[2018-07-02] MEDS ORDERED: METHADONE HCL 10 MG TABLET ONE (06:05)
[2018-07-02] MEDS: METHADONE 10 MG, METHADONE 5 MG PO SCH (06:06)
[2018-07-02] MEDS: IBUPROFEN 600 MG TABLET (FP) PO PRN ×2 (06:06→16:44)
[2018-07-02] MEDS: NICOTINE POLACRILEX 4 MG GUM BUC PRN (06:07)
[2018-07-02] MEDS: NICOTINE 21 MG/24 HOURS TOPICAL PATCH TD SCH (10:33)
[2018-07-02] MEDS: PRENATAL VITAMINS W/ FOLIC ACID TABLET (FP) PO SCH (10:33)
[2018-07-02] MEDS: QUEtiapine FUMARATE 25 MG TABLET (FP) PO SCH ×2 (10:35→16:44)
[2018-07-02] MEDS: cloNIDine HCL 0.1 MG TABLET PO PRN ×2 (10:35→16:44)
[2018-07-02] MEDS: hydrOXYzine PAMOATE 50 MG CAPSULE (FP) PO PRN ×2 (10:36→16:44)
[2018-07-02] MEDS: ALBUTEROL SO4 8 GM HFA INHALER IH PRN ×2 (10:37→21:50)
[2018-07-02] MEDS: BUDESONIDE/FORMETEROL FUMARATE 160/4.5 mcg INHALER IH SCH ×2 (10:37→21:49)
[2018-07-02] MEDS: LISINOPRIL 5 MG TABLET (FP) PO SCH (10:38)
[2018-07-02] MEDS: FUROSEMIDE 40 MG TABLET (FP) PO SCH (10:38)
[2018-07-02] MEDS: GABAPENTIN 300 MG CAPSULE (FP) PO SCH (14:31)
--- NOTE | 2018-07-02 16:38 | PN ---
Psychiatric Progress Note Vital Signs: Vital Signs Period Temp Pulse Resp BP Sys/Dietz Pulse Ox Last 24 Hr 97.8 F 103-105 16-18 106-115/70-80 Date of Session: 07/02/18 Chief Complaint:: " I need something to help me sleep at night ". HPI: Patient continues to complain of insomnia. ROS: Unremarkable. Current Medications: Active Medications Generic Name Dose Route Start Last Admin Trade Name Freq PRN Reason Stop Dose Admin Acetaminophen 650 mg 06/13/18 13:42 07/01/18 21:57 Tylenol - PO 650 mg Q4H PRN Administration FEVER Al Hydroxide/Mg Hydroxide 30 ml 06/13/18 13:42 Mylanta Oral Suspension - PO Q6H PRN DYSPEPSIA Albuterol Sulfate 2 puff 06/13/18 13:43 07/02/18 10:37 Ventolin Hfa Inhaler - IH 2 puff Q4H PRN Administration ASTHMA Albuterol/Ipratropium 1 amp 07/02/18 11:27 Duoneb - NEB Q6H PRN SHORTNESS OF BREATH Budesonide/Formoterol Fumarate 1 puff 06/13/18 22:00 07/02/18 10:37 Symbicort 160/4.5mcg - IH 1 puff BID MARJORIE Administration Clonidine 0.1 mg 06/29/18 10:58 07/02/18 10:35 Catapres - PO 0.1 mg BID PRN Administration WITHDRAWAL(CONT SUBST) Eucalyptus/Menthol/Phenol/Sorbitol 1 each 06/13/18 13:42 Cepastat Lozenge - MM Q4H PRN SORE THROAT Furosemide 20 mg 06/23/18 17:00 07/02/18 10:38 Lasix - PO Not Given DAILY MARJORIE Gabapentin 300 mg 06/24/18 14:00 07/02/18 14:31 Neurontin - PO 300 mg DAILY@1400 MARJORIE Administration Guaifenesin 10 ml 06/13/18 13:42 Robitussin Dm - PO Q6H PRN COUGH Hydroxyzine Pamoate 50 mg 06/13/18 13:42 07/02/18 10:36 Vistaril - PO 50 mg Q4H PRN Administration AGITATION Ibuprofen 600 mg 06/15/18 15:37 07/02/18 06:06 Motrin - PO 600 mg Q6H PRN Administration Pain Level 4-6 Lidocaine HCl 20 ml 06/15/18 15:38 06/18/18 16:29 Xylocaine 2% Viscous Oral - MM 20 ml Q6HPO PRN Administration ORAL PAIN/MOUTH SORES Lisinopril 2.5 mg 06/24/18 10:00 07/02/18 10:38 Prinivil PO Not Given DAILY MARJORIE Loperamide HCl 4 mg 06/13/18 13:42 Imodium - PO Q6H PRN DIARRHEA Magnesium Citrate 300 ml 06/13/18 13:42 Citroma - PO Q48H PRN CONSTIPATION Magnesium Hydroxide 30 ml 06/13/18 13:42 Milk Of Magnesia - PO DAILY PRN CONSTIPATION Methadone HCl 10 mg/ Methadone 15 mg 06/27/18 06:15 07/02/18 06:06 HCl 5 mg PO 15 mg DAILY@0600 MARJORIE Administration Multi-Ingredient Lotion 1 applic 06/22/18 12:18 Eucerin (Small Jar) - TP DAILY PRN DRY SKIN Nicotine 21 mg 06/14/18 10:00 07/02/18 10:33 Nicoderm Patch - TD Not Given DAILY MARJORIE Nicotine Polacrilex 4 mg 06/13/18 13:42 07/02/18 06:07 Nicorette Gum - BUC 4 mg Q2H PRN Administration NICOTINE REPLACEMENT RX Multivit/Folic Acid/Iron 1 tab 06/14/18 10:00 07/02/18 10:33 Vitamins (Sjr) - PO 1 tab DAILY MARJORIE Administration Pseudoephedrine/Triprolidine 1 combo 06/13/18 13:42 Actifed - PO TID PRN NASAL CONGESTION Quetiapine Fumarate 25 mg 06/16/18 17:00 07/02/18 10:35 Seroquel - PO 25 mg BID@1000,1700 MARJORIE Administration Quetiapine Fumarate 100 mg 07/02/18 22:00 Seroquel - PO HS MARJORIE Suvorexant 10 mg 07/02/18 22:00 Belsomra PO HS PRN INSOMNIA Thiamine HCl 100 mg 06/13/18 22:00 07/01/18 21:55 Vitamin B1 - PO 100 mg HS MARJORIE Administration Medication(s) Change(s): Belsomra is added to regimen at patient's request. Mr Reeves reports a history of good response to suvorexant at bedtime. Side effects/benefits discussed. Belsomra 10 mg po hs prn. Ordered. Patient agrees with this paln of care. Seroquel will remain at current doses until repeat EKG. If improvement, seroquel will be titrated up to 200-300 mg as clinically indicated. Current Side Effect: No Lab tests ordered: No Lab tests reviewed: Yes Provider note:: Chart reviewed. Previous psychiatric consults revisited. Patient is already known to me. Mr Reeves endorses fair improvement on seroquel in terms of decreased anxiety but he indicates that he still experiences significant insomnia. Principles of sleep hygiene + benefits of exercise : discussed with patient. Belsomra is added to regimen at patient's specific request. Suggest repeat EKG. Stable mental status. Total face to face time:: 25 Mental Status Exam - Mental Status Exam Alert and Oriented to: Time, Place, Person Cognitive Function: Good Patient Appearance: Well Groomed Mood: Hopeful Affect: Appropriate, Normal Range Patient Behavior: Appropriate, Cooperative Speech Pattern: Clear Voice Loudness: Normal Thought Process: Intact, Goal Oriented Thought Disorder: Not Present Hallucinations: Denies Suicidal Ideation: Denies Homicidal Ideation: Denies Insight/Judgement: Fair Sleep: Poorly, Difficulty falling asleep Appetite: Good Muscle strength/Tone: Normal Gait/Station: Normal Psychiatric Treatment Plan - Problem List (1) Opioid dependence on agonist therapy Current Visit: Yes (2) Alcohol dependence Current Visit: Yes (3) Cocaine dependence Current Visit: Yes (4) Nicotine dependence Current Visit: Yes (5) Substance induced mood disorder Current Visit: Yes (6) Insomnia Current Visit: Yes Comment: .
--- NOTE | 2018-07-02 18:50 | PN ---
S Progress Note Note: history of prolong qt,for up date on ekg,ekg ordered in am.discussed with dr romero
[2018-07-02] MEDS: THIAMINE HCL 100 MG TABLET (FP) PO SCH (21:48)
[2018-07-02] MEDS: QUEtiapine FUMARATE 100 MG TABLET (FP) PO SCH (21:48)
[2018-07-02] MEDS: ACETAMINOPHEN 325 MG TABLET (FP) PO PRN (21:50)
[2018-07-02] MEDS: SUVOREXANT 10 MG TABLET PO PRN (21:51)
[2018-07-03] MEDS: ALBUTEROL SO4 2.5/IPRATROPIUM 0.5 INH SOL 3 ML VIAL.NEB. NEB PRN ×2 (01:53→10:12)
[2018-07-03] MEDS: ALBUTEROL SO4 8 GM HFA INHALER IH PRN ×4 (03:43→21:43)
[2018-07-03] MEDS ORDERED: METHADONE HCL 10 MG TABLET ONE (04:13)
[2018-07-03] MEDS ORDERED: METHADONE HCL 5 MG TABLET ONE (04:13)
[2018-07-03] MEDS: METHADONE 10 MG, METHADONE 5 MG PO SCH (06:22)
[2018-07-03] MEDS: IBUPROFEN 600 MG TABLET (FP) PO PRN ×2 (06:23→15:44)
[2018-07-03] MEDS: BUDESONIDE/FORMETEROL FUMARATE 160/4.5 mcg INHALER IH SCH ×2 (10:09→21:43)
[2018-07-03] MEDS: NICOTINE 21 MG/24 HOURS TOPICAL PATCH TD SCH (10:09)
[2018-07-03] MEDS: FUROSEMIDE 40 MG TABLET (FP) PO SCH (10:10)
[2018-07-03] MEDS: PRENATAL VITAMINS W/ FOLIC ACID TABLET (FP) PO SCH (10:10)
[2018-07-03] MEDS: LISINOPRIL 5 MG TABLET (FP) PO SCH (10:10)
[2018-07-03] MEDS: QUEtiapine FUMARATE 25 MG TABLET (FP) PO SCH ×2 (10:10→16:51)
[2018-07-03] MEDS: cloNIDine HCL 0.1 MG TABLET PO PRN ×2 (10:11→16:51)
[2018-07-03] MEDS: hydrOXYzine PAMOATE 50 MG CAPSULE (FP) PO PRN ×3 (10:11→21:43)
[2018-07-03] MEDS: NICOTINE POLACRILEX 4 MG GUM BUC PRN (10:12)
[2018-07-03] MEDS: MAG HYDROX/AL HYDROX/SIMETH 30 ML UNIT-DOSE CUP PO PRN (11:47)
[2018-07-03] MEDS: GABAPENTIN 300 MG CAPSULE (FP) PO SCH (13:45)
[2018-07-03] MEDS: THIAMINE HCL 100 MG TABLET (FP) PO SCH (21:43)
[2018-07-03] MEDS: SUVOREXANT 10 MG TABLET PO PRN (21:43)
[2018-07-03] MEDS: QUEtiapine FUMARATE 100 MG TABLET (FP) PO SCH (21:43)
[2018-07-04] MEDS: ALBUTEROL SO4 2.5/IPRATROPIUM 0.5 INH SOL 3 ML VIAL.NEB. NEB PRN ×2 (02:30→10:47)
[2018-07-04] MEDS ORDERED: METHADONE HCL 5 MG TABLET ONE (05:22)
[2018-07-04] MEDS ORDERED: METHADONE HCL 10 MG TABLET ONE (05:23)
[2018-07-04] MEDS: METHADONE 10 MG, METHADONE 5 MG PO SCH (05:55)
[2018-07-04] MEDS: hydrOXYzine PAMOATE 50 MG CAPSULE (FP) PO PRN (05:57)
[2018-07-04] MEDS: IBUPROFEN 600 MG TABLET (FP) PO PRN ×2 (05:57→21:59)
[2018-07-04] MEDS: ALBUTEROL SO4 8 GM HFA INHALER IH PRN ×2 (05:59→18:35)
[2018-07-04] MEDS ORDERED: METHADONE HCL 10 MG TABLET PO SCH (06:00)
[2018-07-04] MEDS: PRENATAL VITAMINS W/ FOLIC ACID TABLET (FP) PO SCH (10:45)
[2018-07-04] MEDS: QUEtiapine FUMARATE 25 MG TABLET (FP) PO SCH ×2 (10:45→17:37)
[2018-07-04] MEDS: NICOTINE 21 MG/24 HOURS TOPICAL PATCH TD SCH (10:46)
[2018-07-04] MEDS: LISINOPRIL 5 MG TABLET (FP) PO SCH (10:46)
[2018-07-04] MEDS: FUROSEMIDE 40 MG TABLET (FP) PO SCH (10:46)
[2018-07-04] MEDS: BUDESONIDE/FORMETEROL FUMARATE 160/4.5 mcg INHALER IH SCH ×2 (10:46→22:00)
[2018-07-04] MEDS: cloNIDine HCL 0.1 MG TABLET PO PRN ×2 (10:47→21:59)
[2018-07-04] MEDS: GABAPENTIN 300 MG CAPSULE (FP) PO SCH (14:21)
[2018-07-04] MEDS: SUVOREXANT 10 MG TABLET PO PRN (21:58)
[2018-07-04] MEDS: QUEtiapine FUMARATE 100 MG TABLET (FP) PO SCH (22:00)
[2018-07-04] MEDS: THIAMINE HCL 100 MG TABLET (FP) PO SCH (22:00)
[2018-07-05] MEDS: ALBUTEROL SO4 2.5/IPRATROPIUM 0.5 INH SOL 3 ML VIAL.NEB. NEB PRN ×2 (02:07→20:56)
[2018-07-05] MEDS: ALBUTEROL SO4 8 GM HFA INHALER IH PRN ×2 (04:58→21:44)
[2018-07-05] MEDS ORDERED: METHADONE HCL 10 MG TABLET ONE (05:26)
[2018-07-05] MEDS ORDERED: METHADONE HCL 5 MG TABLET ONE (05:26)
[2018-07-05] MEDS: METHADONE 10 MG, METHADONE 5 MG PO SCH (06:17)
[2018-07-05] MEDS: IBUPROFEN 600 MG TABLET (FP) PO PRN ×2 (06:18→16:49)
[2018-07-05] MEDS: PRENATAL VITAMINS W/ FOLIC ACID TABLET (FP) PO SCH (10:22)
[2018-07-05] MEDS: BUDESONIDE/FORMETEROL FUMARATE 160/4.5 mcg INHALER IH SCH ×2 (10:22→21:44)
[2018-07-05] MEDS: QUEtiapine FUMARATE 25 MG TABLET (FP) PO SCH ×2 (10:22→16:47)
[2018-07-05] MEDS: LISINOPRIL 5 MG TABLET (FP) PO SCH (10:23)
[2018-07-05] MEDS: FUROSEMIDE 40 MG TABLET (FP) PO SCH (10:23)
[2018-07-05] MEDS: NICOTINE 21 MG/24 HOURS TOPICAL PATCH TD SCH (10:23)
--- NOTE | 2018-07-05 14:01 | EKG ---
Test Reason : Blood Pressure : / mmHG Vent. Rate : 108 BPM Atrial Rate : 108 BPM P-R Int : 164 ms QRS Dur : 098 ms QT Int : 358 ms P-R-T Axes : 058 -25 064 degrees QTc Int : 479 ms SINUS TACHYCARDIA POSSIBLE LEFT ATRIAL ENLARGEMENT NONSPECIFIC T WAVE ABNORMALITY ABNORMAL ECG WHEN COMPARED WITH ECG OF 05-FEB-2018 10:59, NO SIGNIFICANT CHANGE WAS FOUND Confirmed by MD Craig, Nile ([id number]) on 07/05/2018 2:01:35 PM Referred By: Confirmed By:Nile Srinivasan MD
[2018-07-05] MEDS: hydrOXYzine PAMOATE 50 MG CAPSULE (FP) PO PRN ×2 (14:52→21:44)
[2018-07-05] MEDS: GABAPENTIN 300 MG CAPSULE (FP) PO SCH (14:52)
[2018-07-05] MEDS: QUEtiapine FUMARATE 100 MG TABLET (FP) PO SCH (21:41)
[2018-07-05] MEDS: THIAMINE HCL 100 MG TABLET (FP) PO SCH (21:41)
[2018-07-05] MEDS: SUVOREXANT 10 MG TABLET PO PRN (21:43)
[2018-07-05] MEDS: cloNIDine HCL 0.1 MG TABLET PO PRN (21:44)
[2018-07-05] MEDS ORDERED: SUVOREXANT 10 MG TABLET PO PRN (22:00)
[2018-07-06] MEDS ORDERED: METHADONE HCL 5 MG TABLET ONE (04:22)
[2018-07-06] MEDS ORDERED: METHADONE HCL 10 MG TABLET ONE (04:22)
[2018-07-06] MEDS: ALBUTEROL SO4 8 GM HFA INHALER IH PRN ×2 (06:22→14:30)
[2018-07-06] MEDS: IBUPROFEN 600 MG TABLET (FP) PO PRN (06:23)
[2018-07-06] MEDS: hydrOXYzine PAMOATE 50 MG CAPSULE (FP) PO PRN ×3 (06:23→21:50)
[2018-07-06] MEDS: METHADONE 10 MG, METHADONE 5 MG PO SCH (06:23)
[2018-07-06] MEDS: QUEtiapine FUMARATE 25 MG TABLET (FP) PO SCH ×2 (10:06→16:22)
[2018-07-06] MEDS: PRENATAL VITAMINS W/ FOLIC ACID TABLET (FP) PO SCH (10:06)
[2018-07-06] MEDS: BUDESONIDE/FORMETEROL FUMARATE 160/4.5 mcg INHALER IH SCH ×2 (10:07→21:52)
[2018-07-06] MEDS: ALBUTEROL SO4 2.5/IPRATROPIUM 0.5 INH SOL 3 ML VIAL.NEB. NEB PRN (10:09)
[2018-07-06] MEDS: LISINOPRIL 5 MG TABLET (FP) PO SCH (10:48)
[2018-07-06] MEDS: FUROSEMIDE 40 MG TABLET (FP) PO SCH (10:48)
[2018-07-06] MEDS: NICOTINE 21 MG/24 HOURS TOPICAL PATCH TD SCH (10:48)
[2018-07-06] MEDS: GABAPENTIN 300 MG CAPSULE (FP) PO SCH (14:29)
[2018-07-06] MEDS: ACETAMINOPHEN 325 MG TABLET (FP) PO PRN (14:29)
[2018-07-06] MEDS: cloNIDine HCL 0.1 MG TABLET PO PRN ×2 (16:22→21:52)
[2018-07-06] MEDS: MAG HYDROX/AL HYDROX/SIMETH 30 ML UNIT-DOSE CUP PO PRN (16:22)
[2018-07-06] MEDS: THIAMINE HCL 100 MG TABLET (FP) PO SCH (21:50)
[2018-07-06] MEDS: guaiFENesin/D-METHORPHAN HB 10 ML UNIT-DOSE CUPS PO PRN (21:50)
[2018-07-06] MEDS: QUEtiapine FUMARATE 100 MG TABLET (FP) PO SCH (21:50)
[2018-07-07] MEDS: ALBUTEROL SO4 8 GM HFA INHALER IH PRN ×2 (05:41→08:46)
[2018-07-07] MEDS ORDERED: METHADONE HCL 5 MG TABLET ONE (06:02)
[2018-07-07] MEDS ORDERED: METHADONE HCL 10 MG TABLET ONE (06:02)
[2018-07-07] MEDS: METHADONE 10 MG, METHADONE 5 MG PO SCH (06:17)
[2018-07-07] MEDS: IBUPROFEN 600 MG TABLET (FP) PO PRN ×2 (08:46→22:05)
[2018-07-07] MEDS: ALBUTEROL SO4 2.5/IPRATROPIUM 0.5 INH SOL 3 ML VIAL.NEB. NEB PRN (09:18)
[2018-07-07] MEDS: NICOTINE 21 MG/24 HOURS TOPICAL PATCH TD SCH (09:58)
[2018-07-07] MEDS: PRENATAL VITAMINS W/ FOLIC ACID TABLET (FP) PO SCH (09:58)
[2018-07-07] MEDS: QUEtiapine FUMARATE 25 MG TABLET (FP) PO SCH ×2 (09:58→17:52)
[2018-07-07] MEDS: LISINOPRIL 5 MG TABLET (FP) PO SCH (09:59)
[2018-07-07] MEDS: FUROSEMIDE 40 MG TABLET (FP) PO SCH (09:59)
[2018-07-07] MEDS: BUDESONIDE/FORMETEROL FUMARATE 160/4.5 mcg INHALER IH SCH ×2 (09:59→22:02)
[2018-07-07] MEDS: NICOTINE POLACRILEX 4 MG GUM BUC PRN (10:00)
[2018-07-07] MEDS: MAG HYDROX/AL HYDROX/SIMETH 30 ML UNIT-DOSE CUP PO PRN (11:47)
[2018-07-07] MEDS: GABAPENTIN 300 MG CAPSULE (FP) PO SCH (13:19)
[2018-07-07] MEDS: THIAMINE HCL 100 MG TABLET (FP) PO SCH (22:03)
[2018-07-07] MEDS: QUEtiapine FUMARATE 100 MG TABLET (FP) PO SCH (22:03)
[2018-07-07] MEDS: hydrOXYzine PAMOATE 50 MG CAPSULE (FP) PO PRN (22:05)
[2018-07-07] MEDS: guaiFENesin/D-METHORPHAN HB 10 ML UNIT-DOSE CUPS PO PRN (22:06)
[2018-07-08] MEDS: ALBUTEROL SO4 8 GM HFA INHALER IH PRN ×2 (04:25→23:18)
[2018-07-08] MEDS ORDERED: METHADONE HCL 10 MG TABLET ONE (06:14)
[2018-07-08] MEDS ORDERED: METHADONE HCL 5 MG TABLET ONE (06:14)
[2018-07-08] MEDS: METHADONE 10 MG, METHADONE 5 MG PO SCH (06:15)
[2018-07-08] MEDS: IBUPROFEN 600 MG TABLET (FP) PO PRN ×2 (06:15→16:52)
[2018-07-08] MEDS: ALBUTEROL SO4 2.5/IPRATROPIUM 0.5 INH SOL 3 ML VIAL.NEB. NEB PRN ×2 (08:11→16:25)
[2018-07-08] MEDS: NICOTINE 21 MG/24 HOURS TOPICAL PATCH TD SCH (10:34)
[2018-07-08] MEDS: PRENATAL VITAMINS W/ FOLIC ACID TABLET (FP) PO SCH (10:34)
[2018-07-08] MEDS: QUEtiapine FUMARATE 25 MG TABLET (FP) PO SCH ×2 (10:36→16:52)
[2018-07-08] MEDS: BUDESONIDE/FORMETEROL FUMARATE 160/4.5 mcg INHALER IH SCH ×2 (10:36→23:17)
[2018-07-08] MEDS: NICOTINE POLACRILEX 4 MG GUM BUC PRN (10:38)
[2018-07-08] MEDS: LISINOPRIL 5 MG TABLET (FP) PO SCH (11:38)
[2018-07-08] MEDS: FUROSEMIDE 40 MG TABLET (FP) PO SCH (11:38)
--- NOTE | 2018-07-08 11:57 | PN ---
S Progress Note Note: PT REQUESTING LASIX ADMIN TIME BE CHANGED TO EVENING AT 8P.M. Vital Signs (72 hours) 07/05/18 07/05/18 07/06/18 15:45 21:16 00:30 Temperature Pulse Rate 105 H Respiratory 18 Rate Blood Pressure 95/60 110/73 07/06/18 07/06/18 07/06/18 03:30 08:02 10:00 Temperature 99.2 F Pulse Rate 109 H 111 H Respiratory 18 19 Rate Blood Pressure 128/87 100/65 07/06/18 07/06/18 07/07/18 16:24 20:50 00:30 Temperature Pulse Rate 108 H 108 H Respiratory 20 18 Rate Blood Pressure 112/68 118/78 07/07/18 07/07/18 07/07/18 03:30 07:18 10:00 Temperature 97.6 F Pulse Rate 102 H 106 H Respiratory 16 18 Rate Blood Pressure 120/78 101/66 07/08/18 07/08/18 07/08/18 00:30 03:30 07:11 Temperature 97.8 F Pulse Rate 105 H Respiratory 18 18 18 Rate Blood Pressure 121/80 07/08/18 07/08/18 08:41 10:00 Temperature Pulse Rate 105 H 105 H Respiratory Rate Blood Pressure 92/64 TIME CHANGED CONTINUE TO MONITOR BP HOLD BP MEDS IF HYPOTENSIVE WHILE HERE IN REHAB. PT WILL FOLLOW UP WITH HIS PRIMARY CARE PROVIDER AT [facility] IN [place] FOR MEDICAL MANAGEMENT AND READJUSTMENT OF MEDICATIONS AFTER DISCHARGE.
[2018-07-08] MEDS: GABAPENTIN 300 MG CAPSULE (FP) PO SCH (14:03)
[2018-07-08] MEDS: hydrOXYzine PAMOATE 50 MG CAPSULE (FP) PO PRN (16:52)
[2018-07-08] MEDS: cloNIDine HCL 0.1 MG TABLET PO PRN (16:55)
[2018-07-08] MEDS ORDERED: FUROSEMIDE 20 MG TABLET (FP) PO SCH (20:00)
[2018-07-08] MEDS: guaiFENesin/D-METHORPHAN HB 10 ML UNIT-DOSE CUPS PO PRN (23:15)
[2018-07-08] MEDS: SUVOREXANT 10 MG TABLET PO PRN (23:16)
[2018-07-08] MEDS: QUEtiapine FUMARATE 100 MG TABLET (FP) PO SCH (23:17)
[2018-07-08] MEDS: FUROSEMIDE 20 MG TABLET (FP) PO SCH (23:17)
[2018-07-08] MEDS: THIAMINE HCL 100 MG TABLET (FP) PO SCH (23:18)
[2018-07-09] MEDS: ALBUTEROL SO4 2.5/IPRATROPIUM 0.5 INH SOL 3 ML VIAL.NEB. NEB PRN ×3 (02:45→17:11)
[2018-07-09] MEDS: ALBUTEROL SO4 8 GM HFA INHALER IH PRN (04:28)
[2018-07-09] MEDS ORDERED: METHADONE HCL 5 MG TABLET ONE (05:06)
[2018-07-09] MEDS ORDERED: METHADONE HCL 10 MG TABLET ONE (05:06)
[2018-07-09] MEDS: METHADONE 10 MG, METHADONE 5 MG PO SCH (06:01)
[2018-07-09] MEDS: IBUPROFEN 600 MG TABLET (FP) PO PRN ×2 (06:03→17:09)
[2018-07-09] MEDS: hydrOXYzine PAMOATE 50 MG CAPSULE (FP) PO PRN ×3 (06:03→21:56)
[2018-07-09] MEDS: LISINOPRIL 5 MG TABLET (FP) PO SCH (10:05)
[2018-07-09] MEDS: BUDESONIDE/FORMETEROL FUMARATE 160/4.5 mcg INHALER IH SCH ×2 (10:05→21:53)
[2018-07-09] MEDS: QUEtiapine FUMARATE 25 MG TABLET (FP) PO SCH ×2 (10:05→17:04)
[2018-07-09] MEDS: NICOTINE 21 MG/24 HOURS TOPICAL PATCH TD SCH (10:05)
[2018-07-09] MEDS: PRENATAL VITAMINS W/ FOLIC ACID TABLET (FP) PO SCH (10:05)
[2018-07-09] MEDS: cloNIDine HCL 0.1 MG TABLET PO PRN ×2 (10:07→21:56)
[2018-07-09] MEDS: MAG HYDROX/AL HYDROX/SIMETH 30 ML UNIT-DOSE CUP PO PRN (10:08)
[2018-07-09] MEDS: NICOTINE POLACRILEX 4 MG GUM BUC PRN (10:09)
[2018-07-09] MEDS: GABAPENTIN 300 MG CAPSULE (FP) PO SCH (14:07)
[2018-07-09] MEDS: QUEtiapine FUMARATE 100 MG TABLET (FP) PO SCH (21:54)
[2018-07-09] MEDS: THIAMINE HCL 100 MG TABLET (FP) PO SCH (21:54)
[2018-07-09] MEDS: SUVOREXANT 10 MG TABLET PO PRN (21:55)
[2018-07-09] MEDS: FUROSEMIDE 20 MG TABLET (FP) PO SCH (21:57)
[2018-07-10] MEDS ORDERED: METHADONE HCL 5 MG TABLET ONE (06:12)
[2018-07-10] MEDS ORDERED: METHADONE HCL 10 MG TABLET ONE (06:12)
[2018-07-10] MEDS: METHADONE 10 MG, METHADONE 5 MG PO SCH (06:22)
[2018-07-10] MEDS: IBUPROFEN 600 MG TABLET (FP) PO PRN ×2 (06:24→16:27)
[2018-07-10] MEDS: ALBUTEROL SO4 8 GM HFA INHALER IH PRN ×2 (06:25→15:50)
[2018-07-10] MEDS: guaiFENesin/D-METHORPHAN HB 10 ML UNIT-DOSE CUPS PO PRN ×2 (06:38→15:50)
[2018-07-10] MEDS: ALBUTEROL SO4 2.5/IPRATROPIUM 0.5 INH SOL 3 ML VIAL.NEB. NEB PRN ×2 (09:28→21:10)
[2018-07-10] MEDS: BUDESONIDE/FORMETEROL FUMARATE 160/4.5 mcg INHALER IH SCH ×2 (09:58→23:06)
[2018-07-10] MEDS: QUEtiapine FUMARATE 25 MG TABLET (FP) PO SCH ×2 (09:58→18:35)
[2018-07-10] MEDS: PRENATAL VITAMINS W/ FOLIC ACID TABLET (FP) PO SCH (09:58)
[2018-07-10] MEDS: LISINOPRIL 5 MG TABLET (FP) PO SCH (09:59)
[2018-07-10] MEDS: NICOTINE 21 MG/24 HOURS TOPICAL PATCH TD SCH (09:59)
[2018-07-10] MEDS: NICOTINE POLACRILEX 4 MG GUM BUC PRN (10:00)
[2018-07-10] MEDS: QUEtiapine FUMARATE 100 MG TABLET (FP) PO SCH (10:05)
[2018-07-10] MEDS: GABAPENTIN 300 MG CAPSULE (FP) PO SCH (15:49)
[2018-07-10] MEDS: cloNIDine HCL 0.1 MG TABLET PO PRN (16:27)
[2018-07-10] MEDS: SUVOREXANT 10 MG TABLET PO PRN (21:09)
[2018-07-10] MEDS: FUROSEMIDE 20 MG TABLET (FP) PO SCH (22:58)
[2018-07-10] MEDS: THIAMINE HCL 100 MG TABLET (FP) PO SCH (23:06)
[2018-07-11] MEDS: ALBUTEROL SO4 2.5/IPRATROPIUM 0.5 INH SOL 3 ML VIAL.NEB. NEB PRN (05:30)
[2018-07-11] MEDS ORDERED: METHADONE HCL 5 MG TABLET ONE (05:47)
[2018-07-11] MEDS ORDERED: METHADONE HCL 10 MG TABLET ONE (05:47)
[2018-07-11] MEDS: guaiFENesin/D-METHORPHAN HB 10 ML UNIT-DOSE CUPS PO PRN (05:54)
[2018-07-11] MEDS: IBUPROFEN 600 MG TABLET (FP) PO PRN (06:36)
--- NOTE | 2018-07-11 06:37 | PN ---
[facility] Progress Note Note: Patient is discharged today. Scripts for 30 days supply of medications( Gabapentin, Seroquel) are electronically transmitted to [facility] at [address] [place] [address]
[2018-07-11] MEDS ORDERED: METHADONE HCL 5 MG TABLET PO ONE (06:54)
[2018-07-11 07:06] VITALS: BP 129/84; PULSE 118; TEMP 97.9
[2018-07-11] MEDS: NICOTINE 21 MG/24 HOURS TOPICAL PATCH TD SCH (09:58)
[2018-07-11] MEDS: LISINOPRIL 5 MG TABLET (FP) PO SCH (09:58)
[2018-07-11] MEDS: QUEtiapine FUMARATE 25 MG TABLET (FP) PO SCH (09:58)
[2018-07-11] MEDS: PRENATAL VITAMINS W/ FOLIC ACID TABLET (FP) PO SCH (09:58)
[2018-07-11] MEDS: BUDESONIDE/FORMETEROL FUMARATE 160/4.5 mcg INHALER IH SCH (09:59)
--- NOTE | 2018-07-11 10:45 | PN ---
[facility] Progress Note Note: PT COMPLETED REHAB AND DISCHARGING TODAY. PT MET WITH HIS COUNSELOR, MS DEALERTON AND HAS BEEN REFERRED BACK TO [facility] AND [facility]. PT REPORTS HE HAS PRIMARY CARE AT [facility] ON [address], [place] FOR MEDICAL MANAGEMENT AND STATES HE HAS A VISIT THERE ON 07/12. PT IS ALERT O X 3. DENIES S/H/I. THIS PUBLIC SPEAKING INSTRUCTOR SPOKE WITH PT'S PHARMACIST AT HIS PHARMACY, [facility] WHO CONFIRMED PT HAS MEDICATIONS HELD FOR HIM FROM HIS PCP FOR [employer]. [facility] RX FOR NARCAN INHALER #1 ELECTRONICALLY SENT TO [facility] FOR PT TO [employer] AFTER DISCHARGE. ALERT O X 3. DENIES S/H/ I. Home Medications Medication Instructions Recorded Albuterol 0.083% Nebulizer Betsy 1 neb NEB Q6H PRN 02/02/18 [Ventolin 0.083% Nebulizer Soln -] Albuterol Sulfate Inhaler - 2 inh PO Q4H PRN #1 inhaler 02/02/18 [Ventolin HFA Inhaler -] Budesonide/Formeterol Fumarate 1 inh PO BID #1 inhaler 02/02/18 [SYMBICORT 160/4.5mcg -] Dextroamphetamine/Amphetamine 10 mg PO BID 02/02/18 [Adderall 10 mg Tablet] Furosemide 40 mg PO DAILY 06/23/18 Lisinopril [Zestril] 2.5 mg PO DAILY 06/23/18 Gabapentin [Neurontin -] 300 mg PO DAILY@1400 #30 capsule 07/11/18 Naloxone HCl [Narcan] 4 mg NS ONCE #1 spray 07/11/18 Quetiapine Fumarate [Seroquel -] 25 mg PO BID@1000,1700 #60 tablet 07/11/18 Quetiapine Fumarate [Seroquel] 100 mg PO HS #30 tablet 07/11/18 Vital Signs - 24 hr 07/10/18 07/11/18 07/11/18 21:00 00:30 03:30 Temperature Pulse Rate 122 H Respiratory 18 18 18 Rate Blood Pressure 112/71 07/11/18 07:05 Temperature 97.9 F Pulse Rate 118 H Respiratory 18 Rate Blood Pressure 129/84 NAD MEDICALLY STABLE PLAN:FOLLOW UP WITH V.I.P-MMTP SCHEDULED ON 07/12/18. FOLLOW UP WITH PCP AT [facility] ON 07/12/18 ON FOR MEDICAL MANAGEMENT.
== END 2018-07-11 10:40 | disposition home or self-care (01) | DRG 772 ==
LOC: YASAS 14:48 → Y5N 14:49
PROVIDERS: ADMIT Neuromusculoskeletal Medicine & OMM; ATTEND Neuromusculoskeletal Medicine & OMM
PROC: HZ42ZZZ Group Counseling for Substance Abuse Treatment, Cognitive-Behavioral (ICD-10-PCS; principal; 2018-06-13)
DX: F10.20 Alcohol dependence, uncomplicated (principal); F11.20 Opioid dependence, uncomplicated; F13.20 Sedative, hypnotic or anxiolytic dependence, uncomplicated; F14.20 Cocaine dependence, uncomplicated; F17.210 Nicotine dependence, cigarettes, uncomplicated; F19.280 Other psychoactive substance dependence with psychoactive substance-induced anxiety disorder; F19.282 Other psychoactive substance dependence with psychoactive substance-induced sleep disorder; F19.24 Other psychoactive substance dependence with psychoactive substance-induced mood disorder; F90.9 Attention-deficit hyperactivity disorder, unspecified type; G47.00 Insomnia, unspecified; J45.909 Unspecified asthma, uncomplicated
CPT/HCPCS: 93005; 93010; 94640; J0735